=== PATIENT | female | born 1950 | race Caucasian/White ===

== ENCOUNTER → 2016-03-24 | Outpatient (CLI) | payer MEDICARE ==
[~2016-03-24] MED LIST: /DULO30CA; /DULO30CA OR; ALLE10TA11 PO; ATOR40TA PO; BACTROBAN TD; BETAMETHASONE CREAM TOP; BIOTCAP PO; BUSP5TA PO; CAL OR; CALC500T49 OR; CALC500T49 PO; DULO20CA; EMLA2.5C TOP; FISH500C; FISHCAP OR; FLEXERIL OR; FOLI1TAB86 PO; GLUC500T3 OR; GLUCOSAMINE; HUMI40KI SC; HYDR25TA6 PO; K-TA10TA PO; KETORALAC OS; LEFL20TA PO; LIDO5DIS TOP; METF500T PO; METH2.5T PO; MISOPROSTOL; MULTIVIT PO; MVI OR; OXYB5TA PO; OXYB5TAB5 OR; PRAV80TA OR; PREDNISOLINE OD; PREDNISOLINE OS; PRIL20CA OR; PROBCAP4 PO; RELPAX OR; TOPI100T OR; TORS10TA22 PO; TRAM50TA2; TRAM50TA2 OR; TYLE325T5 PO; TYLENOL ARTHRITIS OR; ULTR200T OR; VENL75CA PO; VIT D OR; VITAMIN D50000 UNT PO; VOLT75TA; Vitamin D TD; ZETI10TA OR; [UNRECOGNIZED DRUG - CODE] EXT; [UNRECOGNIZED DRUG - CODE] TD; [UNRECOGNIZED DRUG - OTHER]; [UNRECOGNIZED DRUG - OTHER] EXT; [UNRECOGNIZED DRUG - OTHER] OD; [UNRECOGNIZED DRUG - OTHER] OR; [UNRECOGNIZED DRUG - OTHER] TD
--- NOTE | 2016-03-25 01:21 | ECWPNPC ---
PATIENT NAME: MITESH MADRID : 1950 GENDER: FEMALE VISIT DATE: 03/24/2016 DISCHARGE DATE: 03/24/16 1043 VISIT LOCKED DATE TIME: PHYSICIAN: FRANCES LUCIA RESOURCE: FRANCES LUCIA REASON FOR APPOINTMENT 1. REAGAN REFERRAL TO HISTORY OF PRESENT ILLNESS HISTORY OF PRESENT ILLNESS: HX OF CHRONIC GENERALIZED PAIN AND HX OF PSORIATIC ARTHRITIS.CURRENTLY ON REMICADE INFUSIONS.RATING PAIN VAS 3/10.DOING BETTER TODAY THAN AT LAST VISIT.CURRENTLY USING TRAMADOL 50MG BID AND REQUIP AT HS.COMPLAINING OF INCREASE IN RIGHT NECK AND HEAD PAIN WITH CONSTANT NUMBNESS RIGHT HAND.MRI C-SPINE DONE 01-03-16 SHOWING LARGE DISC HERNIATION AT C6-7 W MODERATE TO SEVERE CORD COMPRESSION.SAW AT [facility] PER OUR REFERRAL.WILL BE HAVING CERVICAL SURGERY IN APRIL.CONTINUES WITH CHRONIC LBP WITH RIGHT SIDED SCIATICA. PAIN THE PATIENT DESCRIBES THE PAIN... THE PATIENT DESCRIBES THE PAIN... FALL RISK SCREENING: SCREENING :NO FALLS IN THE PAST YEAR CURRENT MEDICATIONS TAKING OXYBUTYNIN CHLORIDE 5 MG TABLET 1 TABLET ORALLY TWICE A DAY TAKING ACETAMINOPHEN 500 MG TABLET 1 TABLET NEEDED ORALLY 1 TAB @0800, 2 TABS @ 1500, 1 TAB @ 2200 TAKING ATORVASTATIN CALCIUM 40 MG TABLET 1 TABLET ORALLY ONCE A DAY TAKING BUSPIRONE HCL 10 MG TABLET 1 TABLET ORALLY 2 TIMES A DAY TAKING BIOTIN 5000 5 MG CAPSULE 1 CAPSULE ORALLY ONCE A DAY TAKING CLOBETASOL PROPIONATE 0.05 % CREAM 1 APPLICATION TO AFFECTED AREA EXTERNALLY TWICE A DAY NEEDED TAKING CALCIUM 500 MG TABLET 1 TABLET WITH MEALS ORALLY TWICE A DAY TAKING EZETIMIBE 10 MG TABLET 1 TABLET ORALLY ONCE A DAY TAKING FISH OIL 1500 MG CAPSULE 1 CAPSULE ORALLY ONCE A DAY TAKING GLUCOSAMINE SULFATE 500 MG TABLET 1 TABLET WITH A MEAL ORALLY ONCE A DAY TAKING LEFLUNOMIDE 20 MG TABLET 1 TABLET ORALLY ONCE A DAY TAKING LORATADINE 10 MG TABLET 1 TABLET ORALLY ONCE A DAY TAKING METFORMIN HCL 500 MG TABLET ORALLY DAILY TAKING MULTI-VITAMIN TABLET 1 TABLET ORALLY ONCE A DAY TAKING OMEPRAZOLE 20 MG CAPSULE DELAYED RELEASE 2 CAPSULES ORALLY BID TAKING POTASSIUM CHLORIDE 10 MEQ CAPSULE EXTENDED RELEASE MCG ORALLY TAKE ON DAYS THAT TAKE TORSEMIDE TAKING PROBIOTIC CAPSULE ORALLY DAILY TAKING RELPAX 40 MG TABLET 1 TABLET NEEDED ONE TIME ORALLY ONCE A DAY PRN TAKING TORSEMIDE 10 MG TABLET 1 TABLET ORALLY ON 3 DAYS, OFF 3 DAYS PRN EDEMA TAKING TOPIRAMATE 100 MG TABLET 1 TABLET ORALLY IN AM TAKING TOPIRAMATE 150 MG TABLET 1 TABLET ORALLY AT BEDTIME TAKING VENLAFAXINE HCL 50 MG TABLET 150 MG CAP ORALLY DAILY TAKING VITAMIN D 2000 UNIT TABLET 1 TABLET ORALLY ONCE A DAY TAKING REMICADE 100 MG SOLUTION RECONSTITUTED INTRAVENOUS 400MG EVERY 8 WKS TAKING EMLA 2.5-2.5 % CREAM ONE APPLICATION EXTERNALLY PRN TAKING ESTRADIOL 1 MG TABLET 1 TABLET ORALLY DAILY TAKING TRAMADOL HCL 50 MG TABLET 1-2 ORALLY Q6HR PRN MDD4 TAKING REQUIP 0.5 MG TABLET 2 HOURS BEFORE BEDTIME ORALLY ONCE A DAY NOT-TAKING HUMIRA 40 MG/0.8ML PREFILLED SYRINGE KIT 0.8 ML SUBCUTANEOUS EVERY 2 WEEKS MEDICATION LIST REVIEWED AND RECONCILED WITH THE PATIENT PAST MEDICAL HISTORY FIBROMYALGIA CHRONIC HEADACHE BORDERLINE DIABETES DEPRESSION PSORIATIC ARTHITIS OA DROP FOOT DDD STENOSIS VAGINAL DYSPLASIA ALLERGIES CONTRAST MEDIA: RASH: ALLERGY BACITRACIN: RASH: ALLERGY IODINE: HIVES: ALLERGY NEOMYCIN SULFATE: RASH: ALLERGY POLYMYXIN B SULFATE: RASH: ALLERGY BEE VENOM: SWELLING: ALLERGY AMINOGLYCOSIDES: RASH: ALLERGY ASPIRIN: NAUSEA: ALLERGY IBUPROFEN: VOMITING: ALLERGY NAPROXEN: NAUSEA: ALLERGY DICLOFENAC: NAUSEA: ALLERGY GABAPENTIN: URINARY INCONTINENCE: SIDE EFFECTS APPLE (DIAGNOSTIC): SWELLING OF URETHRA/BLADDER MEMBRANES: ALLERGY SOCIAL HISTORY GENERAL: TOBACCO USE ARE YOU A:NONSMOKER LEARNING BARRIERS / SPECIAL NEEDS ORIENTED TO PLAN OF CARE: PATIENT, PAIN MANAGEMENT PATIENT, ORIENTED TO PLAN OF CARE: PATIENT, PAIN MANAGEMENT PATIENT. NEW PATIENT PAIN DIARY TODAY'S VISITNOTES FROM 0-10, WHAT LEVEL IS YOUR PAIN TODAY?0 PAIN CLINIC PFS, CLERGY, PUBLIC HEALTH REFERRALS PFS REFERRAL NEEDED?NO CLERGY REFERRAL NEEDED?NO PUBLIC HEALTH REFERRAL NEEDED?NO WAS THE PROVIDER NOTIFIED OF ANY PERTINENT INFO?NO PFS REFERRAL NEEDED?NO CLERGY REFERRAL NEEDED?NO PUBLIC HEALTH REFERRAL NEEDED?NO WAS THE PROVIDER NOTIFIED OF ANY PERTINENT INFO?NO REVIEW OF SYSTEMS CONSTITUTIONAL: ANY CHANGE IN YOUR MEDICAL CONDITION? NO . CHILLS NO . FEVER NO . INFECTION: DO YOU HAVE NEW INFECTIONS? NO . DO YOU HAVE HISTORY OF MRSA? NO . MUSCULOSKELETAL: ANY NEW PATTERNS OF PAIN OR NUMBNESS? NO . GASTROENTEROLOGY: ANY NEW CHANGE IN BOWEL CONTROL? NO . GENITOURINARY: ANY NEW CHANGE IN BLADDER CONTROL? YES WOULD LIKE TO DISCUSS . IS THERE A CHANCE YOU COULD BE ? NO . HEMATOLOGY/LYMPH: DO YOU TAKE ANY BLOOD THINNERS? (FOR EXAMPLE- COUMADIN, PLAVIX, AGGRENOX, PLATEL, PRADAXA, OR XARELTO) NO . WHEN WAS YOUR LAST DOSE? DATE: TIME: . NEUROLOGY: HAVE YOU FALLEN IN THE PAST 6 MONTHS? NO . ANY NEW EXTREMITY NUMBNESS OR WEAKNESS? NO . CARDIOLOGY: DO YOU HAVE A PACEMAKER OR DEFIBRILLATOR? NO . RESPIRATORY: HAVE YOU BEEN SICK IN THE PAST WEEK? NO . FEVER NO . FLU LIKE SYMPTOMS? NO . COUGH NO . INTEGUMENTARY: DO YOU HAVE ANY RASHES OR OPEN SORES? NO . ALLERGIC/IMMUNO: ARE YOU ALLERGIC TO SHELLFISH OR IV DYE? NO . ANY NEW ALLERGIES? NO . PSYCHIATRIC: DO YOU HAVE THOUGHTS OF HURTING YOURSELF OR SOMEONE ELSE? NO . ARE YOU ABUSED, NEGLECTED, OR IN AN UNSAFE ENVIRONMENT? NO . ENDOCRINOLOGY: ARE YOU DIABETIC? YES . OTHER: DO YOU NEED ANY PRESCRIPTIONS? YES . IF YES, PLEASE LIST: ____ . ANY NEW PROBLEMS WITH YOUR MEDICATIONS? NO . WHEN DID YOU LAST EAT? ____ . WHEN DID YOU LAST DRINK? ____ . WHAT DID YOU LAST DRINK? ____ . NAME OF PERSON DRIVING YOU HOME? ____ . DO YOU HAVE ANY OTHER QUESTIONS OR CONCERNS NO . REVIEWED BY: PROVIDER: FRANCES DOMINGUEZ . VITAL SIGNS WT 176 LBS, HT 61.5 IN, BMI 32.71 INDEX, BP 135/69 MM HG, HR 84 /MIN, RR 18 /MIN, TEMP 97.3 F, OXYGEN SAT % 96%, NA INITIALS SC 09:58. EXAMINATION GENERAL EXAMINATION: LUNGS:LUNG SOUNDS ARE CLEAR. HEART:HEART RATE REGULAR. MUSCULOSKELETAL:*, PALPATION: POSITIVE FOR PAIN OVER CERVICAL AND THORACIC SPINE. POSITIVE FOR PAIN OVER CERVICAL AND THORACIC PARSPINALS.ROJM-CERVICAL WITH REPORTS OF INCREASE PAIN WITH ANY MOVEMENT OF C-SPINE. UNABLE TO EXTEND NECK DUE TO SEVERE PAIN AND STIFFNESS.DISC-HDSA-FJXS WITH INCREASE IN PAIN WITH RASING ARMS ABOVE SHOULDER HEIGHT.. DIAGNOSTIC:MRI CERVICAL SPINE W AND WITHOUT CONTRAST-LARGE DISC HERNIATION AT C6-7 W SPINAL CORD COMPRESSION-MOD TO SEVERE.. ASSESSMENTS CERVICAL DISC HERNIATION - M50.20 (PRIMARY) CERVICAL STENOSIS OF SPINE - M48.02 CERVICAL RADICULOPATHY - M54.12 TREATMENT CERVICAL DISC HERNIATION REFILL TRAMADOL HCL TABLET, 50 MG, 1-2, ORALLY, Q6HR PRN MDD4, 30 DAY(S), 120, REFILLS 3 REFILL REQUIP TABLET, 0.5 MG, 2 HOURS BEFORE BEDTIME, ORALLY, ONCE A DAY, 90 DAYS, 90, REFILLS 1 PROCEDURE CODES FA211 ESTABILISHED PATIENT [facility] CHARGE FOLLOW UP 2 MONTHS ELECTRONICALLY SIGNED BY ANGELICA DORSEY ON 03/24/2016 AT 10:48 AM EST DISCLAIMER : THIS IS A VISIT SUMMARY EXTRACTED FROM THE [employer] CHART. IT IS NOT A COPY OF THE [employer] PROGRESS NOTE. CHICAD
== END ==
LOC: M PAIN 10:00
PROVIDERS: ATTEND Nurse Practitioner Family
DX: Z09 Encounter for follow-up examination after completed treatment for conditions other than malignant neoplasm (principal); G89.29 Other chronic pain; M50.20 Other cervical disc displacement, unspecified cervical region; M48.02 Spinal stenosis, cervical region; M54.12 Radiculopathy, cervical region; Z87.39 Personal history of other diseases of the musculoskeletal system and connective tissue; E11.9 Type 2 diabetes mellitus without complications; M79.7 Fibromyalgia; R51 Headache; F32.9 Major depressive disorder, single episode, unspecified; F34.1 Dysthymic disorder; M19.90 Unspecified osteoarthritis, unspecified site; M21.379 Foot drop, unspecified foot; Z91.041 Radiographic dye allergy status; Z88.1 Allergy status to other antibiotic agents; Z88.8 Allergy status to other drugs, medicaments and biological substances; Z91.030 Bee allergy status; Z91.018 Allergy to other foods; Z79.891 Long term (current) use of opiate analgesic; Z79.1 Long term (current) use of non-steroidal anti-inflammatories (NSAID); Z79.84 Long term (current) use of oral hypoglycemic drugs; Z79.899 Other long term (current) drug therapy
CPT/HCPCS: 90834; G0463

== ENCOUNTER → 2016-06-23 | Outpatient (CLI) | payer MEDICARE ==
--- NOTE | 2016-07-05 01:12 | ECWPNPC ---
PATIENT NAME: MITESH MADRID : 1950 GENDER: FEMALE VISIT DATE: 06/23/2016 DISCHARGE DATE: 06/23/16 1048 VISIT LOCKED DATE TIME: PHYSICIAN: FRANCES LUCIA RESOURCE: FRANCES LUCIA REASON FOR APPOINTMENT 1. SPINE HISTORY OF PRESENT ILLNESS HISTORY OF PRESENT ILLNESS: HERE FOR F/U OF GENERALIZED BACK PAIN.HAD CERVICAL SURGERY [address] STREETER.HAS SIGNIFICANT IMPROVEMENT IN NECK AND RIGHT ARM PARATHESIA.RATING PAIN VAS 5/1O BASE OF SKULL AND/1/10 VAS GENERALIZED BACK PAIN.CURRENTLY USING TRAMADOL 50MG BID AND REQUIP 0.5MG AT HS.FINDS MEDICATION HELPFUL AT REDUCING PAIN AND KEEPING HER COMFORTABLE.DENIES SIDE EFFECTS.RECIEVING Q8WK INFUSIONS OF REMICADE FOR PSORIATIC ARTHRITIS. PAIN THE PATIENT DESCRIBES THE PAIN... FALL RISK SCREENING: SCREENING :NO FALLS IN THE PAST YEAR CURRENT MEDICATIONS TAKING ACETAMINOPHEN 500 MG TABLET 1 TABLET NEEDED ORALLY 1 TAB @0800, 2 TABS @ 1500, 1 TAB @ 2200 TAKING ATORVASTATIN CALCIUM 40 MG TABLET 1 TABLET ORALLY ONCE A DAY TAKING BUSPIRONE HCL 10 MG TABLET 1 TABLET ORALLY 2 TIMES A DAY TAKING BIOTIN 5000 5 MG CAPSULE 1 CAPSULE ORALLY ONCE A DAY TAKING CLOBETASOL PROPIONATE 0.05 % CREAM 1 APPLICATION TO AFFECTED AREA EXTERNALLY TWICE A DAY NEEDED TAKING CALCIUM 500 MG TABLET 1 TABLET WITH MEALS ORALLY TWICE A DAY TAKING EZETIMIBE 10 MG TABLET 1 TABLET ORALLY ONCE A DAY TAKING FISH OIL 1500 MG CAPSULE 1 CAPSULE ORALLY ONCE A DAY TAKING GLUCOSAMINE SULFATE 500 MG TABLET 1 TABLET WITH A MEAL ORALLY ONCE A DAY TAKING LEFLUNOMIDE 20 MG TABLET 1 TABLET ORALLY ONCE A DAY TAKING LORATADINE 10 MG TABLET 1 TABLET ORALLY ONCE A DAY TAKING METFORMIN HCL 500 MG TABLET ORALLY DAILY TAKING MULTI-VITAMIN TABLET 1 TABLET ORALLY ONCE A DAY TAKING OMEPRAZOLE 20 MG CAPSULE DELAYED RELEASE 2 CAPSULES ORALLY BID TAKING POTASSIUM CHLORIDE 10 MEQ CAPSULE EXTENDED RELEASE MCG ORALLY TAKE ON DAYS THAT TAKE TORSEMIDE TAKING PROBIOTIC CAPSULE ORALLY DAILY TAKING RELPAX 40 MG TABLET 1 TABLET NEEDED ONE TIME ORALLY ONCE A DAY PRN TAKING TORSEMIDE 10 MG TABLET 1 TABLET ORALLY ON 3 DAYS, OFF 3 DAYS PRN EDEMA TAKING TOPIRAMATE 100 MG TABLET 1 TABLET ORALLY IN AM TAKING TOPIRAMATE 150 MG TABLET 1 TABLET ORALLY AT BEDTIME PRN TAKING VENLAFAXINE HCL 50 MG TABLET 150 MG CAP ORALLY DAILY TAKING VITAMIN D 2000 UNIT TABLET 1 TABLET ORALLY ONCE A DAY TAKING REMICADE 100 MG SOLUTION RECONSTITUTED INTRAVENOUS 400MG EVERY 8 WKS TAKING EMLA 2.5-2.5 % CREAM ONE APPLICATION EXTERNALLY PRN TAKING TRAMADOL HCL 50 MG TABLET 1-2 ORALLY Q6HR PRN MDD4 TAKING REQUIP 0.5 MG TABLET 2 HOURS BEFORE BEDTIME ORALLY ONCE A DAY TAKING OXYBUTYNIN CHLORIDE 5 MG TABLET 1 TABLET ORALLY TWICE A DAY TAKING ESTRADIOL 1 MG TABLET 1 TABLET ORALLY DAILY NOT-TAKING HUMIRA 40 MG/0.8ML PREFILLED SYRINGE KIT 0.8 ML SUBCUTANEOUS EVERY 2 WEEKS MEDICATION LIST REVIEWED AND RECONCILED WITH THE PATIENT PAST MEDICAL HISTORY FIBROMYALGIA CHRONIC HEADACHE BORDERLINE DIABETES DEPRESSION PSORIATIC ARTHITIS OA DROP FOOT DDD STENOSIS VAGINAL DYSPLASIA ALLERGIES CONTRAST MEDIA: RASH: ALLERGY BACITRACIN: RASH: ALLERGY IODINE: HIVES: ALLERGY NEOMYCIN SULFATE: RASH: ALLERGY POLYMYXIN B SULFATE: RASH: ALLERGY BEE VENOM: SWELLING: ALLERGY AMINOGLYCOSIDES: RASH: ALLERGY ASPIRIN: NAUSEA: ALLERGY IBUPROFEN: VOMITING: ALLERGY NAPROXEN: NAUSEA: ALLERGY DICLOFENAC: NAUSEA: ALLERGY GABAPENTIN: URINARY INCONTINENCE: SIDE EFFECTS APPLE (DIAGNOSTIC): SWELLING OF URETHRA/BLADDER MEMBRANES: ALLERGY SOCIAL HISTORY GENERAL: PAIN CLINIC PFS, CLERGY, PUBLIC HEALTH REFERRALS CLERGY REFERRAL NEEDED?NO WAS THE PROVIDER NOTIFIED OF ANY PERTINENT INFO?NO PFS REFERRAL NEEDED?NO PUBLIC HEALTH REFERRAL NEEDED?NO PATIENT: ____. REVIEW OF SYSTEMS CONSTITUTIONAL: ANY CHANGE IN YOUR MEDICAL CONDITION? NO . CHILLS NO . FEVER NO . INFECTION: DO YOU HAVE NEW INFECTIONS? NO . DO YOU HAVE HISTORY OF MRSA? NO . MUSCULOSKELETAL: ANY NEW PATTERNS OF PAIN OR NUMBNESS? NO . GASTROENTEROLOGY: ANY NEW CHANGE IN BOWEL CONTROL? NO . GENITOURINARY: ANY NEW CHANGE IN BLADDER CONTROL? NO . IS THERE A CHANCE YOU COULD BE ? NO . HEMATOLOGY/LYMPH: DO YOU TAKE ANY BLOOD THINNERS? (FOR EXAMPLE- COUMADIN, PLAVIX, AGGRENOX, PLATEL, PRADAXA, OR XARELTO) NO . WHEN WAS YOUR LAST DOSE? DATE: TIME: . NEUROLOGY: HAVE YOU FALLEN IN THE PAST 6 MONTHS? NO . ANY NEW EXTREMITY NUMBNESS OR WEAKNESS? NO . CARDIOLOGY: DO YOU HAVE A PACEMAKER OR DEFIBRILLATOR? NO . RESPIRATORY: HAVE YOU BEEN SICK IN THE PAST WEEK? NO . FEVER NO . FLU LIKE SYMPTOMS? NO . COUGH NO . INTEGUMENTARY: DO YOU HAVE ANY RASHES OR OPEN SORES? NO . ALLERGIC/IMMUNO: ARE YOU ALLERGIC TO SHELLFISH OR IV DYE? NO . ANY NEW ALLERGIES? NO . PSYCHIATRIC: DO YOU HAVE THOUGHTS OF HURTING YOURSELF OR SOMEONE ELSE? NO . ARE YOU ABUSED, NEGLECTED, OR IN AN UNSAFE ENVIRONMENT? NO . ENDOCRINOLOGY: ARE YOU DIABETIC? NO . OTHER: DO YOU NEED ANY PRESCRIPTIONS? NO . IF YES, PLEASE LIST: ____ . ANY NEW PROBLEMS WITH YOUR MEDICATIONS? NO . WHEN DID YOU LAST EAT? ____ . WHEN DID YOU LAST DRINK? ____ . WHAT DID YOU LAST DRINK? ____ . NAME OF PERSON DRIVING YOU HOME? ____ . DO YOU HAVE ANY OTHER QUESTIONS OR CONCERNS NO . REVIEWED BY: PROVIDER: FRANCES DOMINGUEZ . VITAL SIGNS WT 176.8 LBS, HT 61.5 IN, BMI 32.86 INDEX, BP 127/75 MM HG, HR 87 /MIN, RR 18 /MIN, TEMP 96.0 F, OXYGEN SAT % 96%, NA INITIALS AW 1000, REVIEWED BY: KG. EXAMINATION GENERAL EXAMINATION: LUNGS:LUNG SOUNDS ARE CLEAR. HEART:HEART RATE REGULAR. MUSCULOSKELETAL:*, PALPATION: POSITIVE FOR PAIN OVER CERVICAL AND THORACIC SPINE. POSITIVE FOR PAIN OVER CERVICAL AND THORACIC PARSPINALS.ROJM-CERVICAL WITH REPORTS OF INCREASE PAIN WITH ANY MOVEMENT OF C-SPINE. UNABLE TO EXTEND NECK DUE TO SEVERE PAIN AND STIFFNESS.[id number] WITH INCREASE IN PAIN WITH RASING ARMS ABOVE SHOULDER HEIGHT.. DIAGNOSTIC:MRI CERVICAL SPINE W AND WITHOUT CONTRAST-LARGE DISC HERNIATION AT C6-7 W SPINAL CORD COMPRESSION-MOD TO SEVERE.. ASSESSMENTS CHRONIC BILATERAL LOW BACK PAIN WITH RIGHT-SIDED SCIATICA - M54.41 (PRIMARY) CERVICAL STENOSIS OF SPINE - M48.02 PSORIATIC ARTHRITIS - L40.50 TREATMENT CHRONIC BILATERAL LOW BACK PAIN WITH RIGHT-SIDED SCIATICA REFILL TRAMADOL HCL TABLET, 50 MG, 1-2, ORALLY, Q6HR PRN MDD2 3MOS SUPPLY CAT. D CHRONIC PAIN, 90 DAY(S), 180, REFILLS 0 REFILL REQUIP TABLET, 0.5 MG, 2 HOURS BEFORE BEDTIME, ORALLY, ONCE A DAY, 90 DAYS, 90, REFILLS 1 PROCEDURE CODES FA211 ESTABILISHED PATIENT [facility] FACILITY CHARGE G5643 PAIN ASSESS POS TOOL F/U PLAN DOC G8427 DOC MEDS VERIFIED W/PT OR RE DISPOSITION & COMMUNICATION FOLLOW UP 2 MONTHS ELECTRONICALLY SIGNED BY ANGELICA DORSEY ON 07/04/2016 AT 01:11 PM EDT DISCLAIMER : THIS IS A VISIT SUMMARY EXTRACTED FROM THE [employer] CHART. IT IS NOT A COPY OF THE [employer] PROGRESS NOTE. JIAN
== END | disposition home or self-care (01) ==
LOC: M PAIN 10:00
PROVIDERS: ATTEND Nurse Practitioner Family
DX: G89.29 Other chronic pain (principal); M54.41 Lumbago with sciatica, right side; M48.02 Spinal stenosis, cervical region; L40.50 Arthropathic psoriasis, unspecified; E11.9 Type 2 diabetes mellitus without complications; M79.7 Fibromyalgia; R51 Headache; F33.9 Major depressive disorder, recurrent, unspecified; N89.3 Dysplasia of vagina, unspecified; Z79.899 Other long term (current) drug therapy; Z79.84 Long term (current) use of oral hypoglycemic drugs; Z88.5 Allergy status to narcotic agent; Z88.8 Allergy status to other drugs, medicaments and biological substances; Z91.041 Radiographic dye allergy status; Z91.048 Other nonmedicinal substance allergy status; Z91.018 Allergy to other foods; Z91.030 Bee allergy status

== ENCOUNTER → 2016-08-22 | Outpatient (CLI) | payer MEDICARE ==
--- NOTE | 2016-09-04 01:22 | ECWPNPC ---
PATIENT NAME: MITESH MADRID : 1950 GENDER: FEMALE VISIT DATE: 08/22/2016 DISCHARGE DATE: 08/22/16 1157 VISIT LOCKED DATE TIME: PHYSICIAN: FRANCES LUCIA RESOURCE: FRANCES LUCIA REASON FOR APPOINTMENT 1. SPINE HISTORY OF PRESENT ILLNESS HISTORY OF PRESENT ILLNESS: HERE FOR F/U OF GENERALIZED BACK PAIN.HAD CERVICAL SURGERY [address] STREETER.HAS SIGNIFICANT IMPROVEMENT IN NECK AND RIGHT ARM PARATHESIA.RATING PAIN VAS 2/1O BASE OF SKULL AND 2/10 VAS GENERALIZED BACK PAIN.CURRENTLY USING TRAMADOL 50MG BID AND REQUIP 0.5MG AT HS.FINDS MEDICATION HELPFUL AT REDUCING PAIN AND KEEPING HER COMFORTABLE.DENIES SIDE EFFECTS.RECIEVING Q8WK INFUSIONS OF REMICADE FOR PSORIATIC ARTHRITIS. PAIN THE PATIENT DESCRIBES THE PAIN... THE PATIENT DESCRIBES THE PAIN... FALL RISK SCREENING: SCREENING :NO FALLS IN THE PAST YEAR CURRENT MEDICATIONS TAKING ACETAMINOPHEN 500 MG TABLET 1 TABLET NEEDED ORALLY 1 TAB @0800, 2 TABS @ 1500, 1 TAB @ 2200 TAKING ATORVASTATIN CALCIUM 40 MG TABLET 1 TABLET ORALLY ONCE A DAY TAKING BUSPIRONE HCL 10 MG TABLET 1 TABLET ORALLY 2 TIMES A DAY TAKING BIOTIN 5000 5 MG CAPSULE 1 CAPSULE ORALLY ONCE A DAY TAKING CLOBETASOL PROPIONATE 0.05 % CREAM 1 APPLICATION TO AFFECTED AREA EXTERNALLY TWICE A DAY NEEDED TAKING CALCIUM 500 MG TABLET 1 TABLET WITH MEALS ORALLY TWICE A DAY TAKING EZETIMIBE 10 MG TABLET 1 TABLET ORALLY ONCE A DAY TAKING FISH OIL 1500 MG CAPSULE 1 CAPSULE ORALLY ONCE A DAY TAKING GLUCOSAMINE SULFATE 500 MG TABLET 1 TABLET WITH A MEAL ORALLY ONCE A DAY TAKING LEFLUNOMIDE 20 MG TABLET 1 TABLET ORALLY ONCE A DAY TAKING LORATADINE 10 MG TABLET 1 TABLET ORALLY ONCE A DAY TAKING METFORMIN HCL 500 MG TABLET ORALLY DAILY TAKING MULTI-VITAMIN TABLET 1 TABLET ORALLY ONCE A DAY TAKING OMEPRAZOLE 20 MG CAPSULE DELAYED RELEASE 2 CAPSULES ORALLY BID TAKING POTASSIUM CHLORIDE 10 MEQ CAPSULE EXTENDED RELEASE MCG ORALLY TAKE ON DAYS THAT TAKE TORSEMIDE TAKING PROBIOTIC CAPSULE ORALLY DAILY TAKING RELPAX 40 MG TABLET 1 TABLET NEEDED ONE TIME ORALLY ONCE A DAY PRN TAKING TORSEMIDE 10 MG TABLET 1 TABLET ORALLY ON 3 DAYS, OFF 3 DAYS PRN EDEMA TAKING TOPIRAMATE 100 MG TABLET 1 TABLET ORALLY IN AM TAKING TOPIRAMATE 150 MG TABLET 1 TABLET ORALLY AT BEDTIME PRN TAKING VENLAFAXINE HCL 50 MG TABLET 150 MG CAP ORALLY DAILY TAKING VITAMIN D 2000 UNIT TABLET 1 TABLET ORALLY ONCE A DAY TAKING REMICADE 100 MG SOLUTION RECONSTITUTED INTRAVENOUS 400MG EVERY 8 WKS TAKING EMLA 2.5-2.5 % CREAM ONE APPLICATION EXTERNALLY PRN TAKING OXYBUTYNIN CHLORIDE 5 MG TABLET 1 TABLET ORALLY TWICE A DAY TAKING ESTRADIOL 1 MG TABLET 1 TABLET ORALLY DAILY TAKING TRAMADOL HCL 50 MG TABLET 1-2 ORALLY Q6HR PRN MDD2 3MOS SUPPLY CAT. D CHRONIC PAIN TAKING REQUIP 0.5 MG TABLET 2 HOURS BEFORE BEDTIME ORALLY ONCE A DAY NOT-TAKING HUMIRA 40 MG/0.8ML PREFILLED SYRINGE KIT 0.8 ML SUBCUTANEOUS EVERY 2 WEEKS MEDICATION LIST REVIEWED AND RECONCILED WITH THE PATIENT PAST MEDICAL HISTORY FIBROMYALGIA CHRONIC HEADACHE BORDERLINE DIABETES DEPRESSION PSORIATIC ARTHITIS OA DROP FOOT DDD STENOSIS VAGINAL DYSPLASIA ALLERGIES CONTRAST MEDIA: RASH: ALLERGY BACITRACIN: RASH: ALLERGY IODINE: HIVES: ALLERGY NEOMYCIN SULFATE: RASH: ALLERGY POLYMYXIN B SULFATE: RASH: ALLERGY BEE VENOM: SWELLING: ALLERGY AMINOGLYCOSIDES: RASH: ALLERGY ASPIRIN: NAUSEA: ALLERGY IBUPROFEN: VOMITING: ALLERGY NAPROXEN: NAUSEA: ALLERGY DICLOFENAC: NAUSEA: ALLERGY GABAPENTIN: URINARY INCONTINENCE: SIDE EFFECTS APPLE (DIAGNOSTIC): SWELLING OF URETHRA/BLADDER MEMBRANES: ALLERGY SOCIAL HISTORY GENERAL: PAIN CLINIC PFS, CLERGY, PUBLIC HEALTH REFERRALS PFS REFERRAL NEEDED?NO CLERGY REFERRAL NEEDED?NO PUBLIC HEALTH REFERRAL NEEDED?NO WAS THE PROVIDER NOTIFIED OF ANY PERTINENT INFO?NO HAS THE PATIENT BEEN EDUCATED REGARDING HIS/HER PLAN OF CARE?YES HAS THE PATIENT BEEN EDUCATED REGARDING PAIN, THE RISK FOR PAIN, THE IMPORTANCE OF EFFECTIVE PAIN MANAGEMENT, AND THE PAIN ASSESSMENT PROCESS?YES PATIENT: ____. REVIEW OF SYSTEMS REVIEWED BY: PROVIDER: FRANCES DOMINGUEZ . CONSTITUTIONAL: ANY CHANGE IN YOUR MEDICAL CONDITION? NO . CHILLS NO . FEVER NO . INFECTION: DO YOU HAVE NEW INFECTIONS? NO . DO YOU HAVE HISTORY OF MRSA? NO . MUSCULOSKELETAL: ANY NEW PATTERNS OF PAIN OR NUMBNESS? NO . GASTROENTEROLOGY: ANY NEW CHANGE IN BOWEL CONTROL? NO . GENITOURINARY: ANY NEW CHANGE IN BLADDER CONTROL? NO . IS THERE A CHANCE YOU COULD BE ? NO . HEMATOLOGY/LYMPH: DO YOU TAKE ANY BLOOD THINNERS? (FOR EXAMPLE- COUMADIN, PLAVIX, AGGRENOX, PLATEL, PRADAXA, OR XARELTO) NO . WHEN WAS YOUR LAST DOSE? DATE: TIME: . NEUROLOGY: HAVE YOU FALLEN IN THE PAST 6 MONTHS? NO . ANY NEW EXTREMITY NUMBNESS OR WEAKNESS? NO . CARDIOLOGY: DO YOU HAVE A PACEMAKER OR DEFIBRILLATOR? NO . RESPIRATORY: HAVE YOU BEEN SICK IN THE PAST WEEK? NO . FEVER NO . FLU LIKE SYMPTOMS? NO . COUGH NO . INTEGUMENTARY: DO YOU HAVE ANY RASHES OR OPEN SORES? NO . ALLERGIC/IMMUNO: ARE YOU ALLERGIC TO SHELLFISH OR IV DYE? YES . ANY NEW ALLERGIES? NO . PSYCHIATRIC: DO YOU HAVE THOUGHTS OF HURTING YOURSELF OR SOMEONE ELSE? NO . ARE YOU ABUSED, NEGLECTED, OR IN AN UNSAFE ENVIRONMENT? NO . ENDOCRINOLOGY: ARE YOU DIABETIC? YES . OTHER: DO YOU NEED ANY PRESCRIPTIONS? NO . IF YES, PLEASE LIST: ____ . ANY NEW PROBLEMS WITH YOUR MEDICATIONS? NO . WHEN DID YOU LAST EAT? ____ . WHEN DID YOU LAST DRINK? ____ . WHAT DID YOU LAST DRINK? ____ . NAME OF PERSON DRIVING YOU HOME? ____ . DO YOU HAVE ANY OTHER QUESTIONS OR CONCERNS NO . VITAL SIGNS WT 179.4 LBS, HT 61.5 IN, BMI 33.34 INDEX, BP 135/69 MM HG, HR 79 /MIN, RR 16 /MIN, TEMP 97.9 F, OXYGEN SAT % 95%, NA INITIALS TL 1136, REVIEWED BY: CS. EXAMINATION GENERAL EXAMINATION: LUNGS:LUNG SOUNDS ARE CLEAR. HEART:HEART RATE REGULAR. MUSCULOSKELETAL:*, PALPATION: POSITIVE FOR PAIN OVER CERVICAL AND THORACIC SPINE. POSITIVE FOR PAIN OVER CERVICAL AND THORACIC PARSPINALS.ROJM-CERVICAL WITH REPORTS OF INCREASE PAIN WITH ANY MOVEMENT OF C-SPINE. UNABLE TO EXTEND NECK DUE TO SEVERE PAIN AND STIFFNESS.[id number] WITH INCREASE IN PAIN WITH RASING ARMS ABOVE SHOULDER HEIGHT.. DIAGNOSTIC:MRI CERVICAL SPINE W AND WITHOUT CONTRAST-LARGE DISC HERNIATION AT C6-7 W SPINAL CORD COMPRESSION-MOD TO SEVERE.. ASSESSMENTS CHRONIC BILATERAL LOW BACK PAIN WITH RIGHT-SIDED SCIATICA - M54.41 (PRIMARY) CERVICAL STENOSIS OF SPINE - M48.02 PSORIATIC ARTHRITIS - L40.50 TREATMENT CHRONIC BILATERAL LOW BACK PAIN WITH RIGHT-SIDED SCIATICA CONTINUE TRAMADOL HCL TABLET, 50 MG, 1-2, ORALLY, Q6HR PRN MDD2 3MOS SUPPLY CAT. D CHRONIC PAIN CONTINUE REQUIP TABLET, 0.5 MG, 2 HOURS BEFORE BEDTIME, ORALLY, ONCE A DAY NOTES: #128 - SCREENING BMI AND F/U PLAN IN : BMI ABOVE NORMAL TODAY. DISCUSSED WITH PATIENT NUTRITIONAL FOOD CHOICES TO ASSIST WITH WEIGHT LOSS. RECCOMMENDED REDUCING SALT, SUGAR, SODA INTAKE. RECOMMEND INCREASE ACTIVITY TO INCLUDE WALKING ON A REGULAR BASIS. PROFESSIONAL NUTRITIONAL NUTRITIONAL GUIDANCE WAS OFFERED AND WAS DECLINED. , PATIENT WAS ADVISED TO START A WALKING PROGRAM TO STRENGTHEN LUMBAR PARASPINAL MUSCLES AND IMPROVE MOBILITY. THEY WERE ADVISED THAT THIS WILL IMPROVE WEIGHT LOSS AND ALSO DEPRESSION/FIBROMYALGIA SYMPTOMS. ADVISED TO WALK 10 MINUTES EVERY OTHER DAY ON A FLAT SURFACE. EMPHASIZED THE IMPORTANCE OF DOING THIS CONSISTANTLY AND NOT SPORATICALLY TO AVOID INJURY. STRONG ADVISED NOT TO DO MORE THAN 10 MINUTES EVERY OTHER DSY FOR THE FIRST 4 WEEKS. PROCEDURE CODES FA211 ESTABILISHED PATIENT [facility] CHARGE G8783 BP SCR PRFRM RCMDD DEFIND SCR INTVL G8730 PAIN ASSESS POS TOOL F/U PLAN DOC 3016F PT SCRND [place]HL[place]Y [place] USE 1124F ACP DISCUSS-NO DSCNMKR DOCD 1036F TOBACCO NON-USER G8427 DOC MEDS VERIFIED W/PT OR RE G8417 BMI >=30 CALCUATE W/FOLLOWUP 3288F FALL RISK ASSESSMENT DOCD DISPOSITION & COMMUNICATION FOLLOW UP 3 MONTHS ELECTRONICALLY SIGNED BY ANGELICA DORSEY ON 09/03/2016 AT 05:05 PM EDT DISCLAIMER : THIS IS A VISIT SUMMARY EXTRACTED FROM THE [employer] CHART. IT IS NOT A COPY OF THE [employer] PROGRESS NOTE. MTDD
== END | disposition home or self-care (01) ==
LOC: M PAIN 11:00
PROVIDERS: ATTEND Nurse Practitioner Family
DX: G89.29 Other chronic pain (principal); M54.41 Lumbago with sciatica, right side; M48.02 Spinal stenosis, cervical region; L40.50 Arthropathic psoriasis, unspecified; M79.7 Fibromyalgia; E11.9 Type 2 diabetes mellitus without complications; F33.9 Major depressive disorder, recurrent, unspecified; M19.90 Unspecified osteoarthritis, unspecified site; Z79.899 Other long term (current) drug therapy; Z79.84 Long term (current) use of oral hypoglycemic drugs; Z91.030 Bee allergy status; Z91.041 Radiographic dye allergy status; Z91.018 Allergy to other foods; Z91.048 Other nonmedicinal substance allergy status; Z88.1 Allergy status to other antibiotic agents; Z88.2 Allergy status to sulfonamides; Z88.8 Allergy status to other drugs, medicaments and biological substances

== ENCOUNTER → 2016-11-24 | Outpatient (CLI) | payer MEDICARE ==
[~2016-11-24] MED LIST changes: -ATOR40TA PO; +ATOR40TA75 PO; -OXYB5TA PO; +OXYB5TAB10 PO
--- NOTE | 2016-12-08 00:56 | ECWPNPC ---
PATIENT NAME: MITESH MADRID : 1950 GENDER: FEMALE VISIT DATE: 11/24/2016 DISCHARGE DATE: 11/24/16 1219 VISIT LOCKED DATE TIME: PHYSICIAN: FRANCES LUCIA RESOURCE: FRANCES LUCIA REASON FOR APPOINTMENT 1. SPINE HISTORY OF PRESENT ILLNESS HISTORY OF PRESENT ILLNESS: HERE FOR F/U OF GENERALIZED BACK PAIN.HAD CERVICAL SURGERY [address] STREETER.DOING VERY WELL WITH NECK PAIN.CURRENTLY USING TRAMADOL 50MG BID AND REQUIP 0.5MG AT HS.USING LIDOCAINE CREAM TO THORACIC AREA PRN WHICH IS HELPFUL.FINDS MEDICATION HELPFUL AT REDUCING PAIN AND KEEPING HER COMFORTABLE.DENIES SIDE EFFECTS.RECIEVING Q8WK INFUSIONS OF REMICADE FOR PSORIATIC ARTHRITIS.PAIN IN THORACIC AREA IS WORSE AREA.DESCRIBES PAIN CONSTANT ACHING. PAIN THE PATIENT DESCRIBES THE PAIN... THE PATIENT DESCRIBES THE PAIN... THE PATIENT DESCRIBES THE PAIN... FALL RISK SCREENING: SCREENING :NO FALLS IN THE PAST YEAR CURRENT MEDICATIONS TAKING ACETAMINOPHEN 500 MG TABLET 1 TABLET NEEDED ORALLY 1 TAB @0800, 2 TABS @ 1500, 1 TAB @ 2200 TAKING ATORVASTATIN CALCIUM 40 MG TABLET 1 TABLET ORALLY ONCE A DAY TAKING BUSPIRONE HCL 10 MG TABLET 1 TABLET ORALLY 2 TIMES A DAY TAKING BIOTIN 5000 5 MG CAPSULE 1 CAPSULE ORALLY ONCE A DAY TAKING CLOBETASOL PROPIONATE 0.05 % CREAM 1 APPLICATION TO AFFECTED AREA EXTERNALLY TWICE A DAY NEEDED TAKING CALCIUM 500 MG TABLET 1 TABLET WITH MEALS ORALLY TWICE A DAY TAKING EZETIMIBE 10 MG TABLET 1 TABLET ORALLY ONCE A DAY TAKING FISH OIL 1500 MG CAPSULE 1 CAPSULE ORALLY ONCE A DAY TAKING GLUCOSAMINE SULFATE 500 MG TABLET 1 TABLET WITH A MEAL ORALLY ONCE A DAY TAKING LEFLUNOMIDE 20 MG TABLET 1 TABLET ORALLY ONCE A DAY TAKING LORATADINE 10 MG TABLET 1 TABLET ORALLY ONCE A DAY TAKING METFORMIN HCL 500 MG TABLET ORALLY DAILY TAKING MULTI-VITAMIN TABLET 1 TABLET ORALLY ONCE A DAY TAKING OMEPRAZOLE 20 MG CAPSULE DELAYED RELEASE 2 CAPSULES ORALLY BID TAKING POTASSIUM CHLORIDE 10 MEQ CAPSULE EXTENDED RELEASE MCG ORALLY TAKE ON DAYS THAT TAKE TORSEMIDE TAKING PROBIOTIC CAPSULE ORALLY DAILY TAKING RELPAX 40 MG TABLET 1 TABLET NEEDED ONE TIME ORALLY ONCE A DAY PRN TAKING TORSEMIDE 10 MG TABLET 1 TABLET ORALLY ON 3 DAYS, OFF 3 DAYS PRN EDEMA TAKING TOPIRAMATE 100 MG TABLET 1 TABLET ORALLY IN AM TAKING TOPIRAMATE 150 MG TABLET 1 TABLET ORALLY AT BEDTIME TAKING VENLAFAXINE HCL 50 MG TABLET 150 MG CAP ORALLY DAILY TAKING VITAMIN D 2000 UNIT TABLET 1 TABLET ORALLY ONCE A DAY TAKING REMICADE 100 MG SOLUTION RECONSTITUTED INTRAVENOUS 400MG EVERY 8 WKS TAKING EMLA 2.5-2.5 % CREAM ONE APPLICATION EXTERNALLY PRN TAKING OXYBUTYNIN CHLORIDE 5 MG TABLET 1 TABLET ORALLY TWICE A DAY TAKING ESTRADIOL 1 MG TABLET 1 TABLET ORALLY DAILY TAKING TRAMADOL HCL 50 MG TABLET 1-2 ORALLY Q6HR PRN MDD2 3MOS SUPPLY CAT. D CHRONIC PAIN TAKING REQUIP 0.5 MG TABLET 2 HOURS BEFORE BEDTIME ORALLY ONCE A DAY NOT-TAKING HUMIRA 40 MG/0.8ML PREFILLED SYRINGE KIT 0.8 ML SUBCUTANEOUS EVERY 2 WEEKS MEDICATION LIST REVIEWED AND RECONCILED WITH THE PATIENT PAST MEDICAL HISTORY FIBROMYALGIA CHRONIC HEADACHE BORDERLINE DIABETES DEPRESSION PSORIATIC ARTHITIS OA DROP FOOT DDD STENOSIS VAGINAL DYSPLASIA ALLERGIES CONTRAST MEDIA: RASH: ALLERGY IODINE: HIVES: ALLERGY NEOMYCIN SULFATE: RASH: ALLERGY POLYMYXIN B SULFATE: RASH: ALLERGY BEE VENOM: SWELLING: ALLERGY AMINOGLYCOSIDES: RASH: ALLERGY ASPIRIN: NAUSEA: ALLERGY IBUPROFEN: VOMITING: ALLERGY NAPROXEN: NAUSEA: ALLERGY DICLOFENAC: NAUSEA: ALLERGY GABAPENTIN: URINARY INCONTINENCE: SIDE EFFECTS APPLE (DIAGNOSTIC): SWELLING OF URETHRA/BLADDER MEMBRANES: ALLERGY NEOSPORIN: RASH: ALLERGY REVIEW OF SYSTEMS REVIEWED BY: PROVIDER: FRANCES DOMINGUEZ . CONSTITUTIONAL: ANY CHANGE IN YOUR MEDICAL CONDITION? NO . CHILLS NO . FEVER NO . INFECTION: DO YOU HAVE NEW INFECTIONS? NO . DO YOU HAVE HISTORY OF MRSA? NO . MUSCULOSKELETAL: ANY NEW PATTERNS OF PAIN OR NUMBNESS? NO . GASTROENTEROLOGY: ANY NEW CHANGE IN BOWEL CONTROL? NO . GENITOURINARY: ANY NEW CHANGE IN BLADDER CONTROL? NO . IS THERE A CHANCE YOU COULD BE ? NO . HEMATOLOGY/LYMPH: DO YOU TAKE ANY BLOOD THINNERS? (FOR EXAMPLE- COUMADIN, PLAVIX, AGGRENOX, PLATEL, PRADAXA, OR XARELTO) NO . WHEN WAS YOUR LAST DOSE? DATE: TIME: . NEUROLOGY: HAVE YOU FALLEN IN THE PAST 6 MONTHS? NO . ANY NEW EXTREMITY NUMBNESS OR WEAKNESS? NO . CARDIOLOGY: DO YOU HAVE A PACEMAKER OR DEFIBRILLATOR? NO . RESPIRATORY: HAVE YOU BEEN SICK IN THE PAST WEEK? NO . FEVER NO . FLU LIKE SYMPTOMS? NO . COUGH NO . INTEGUMENTARY: DO YOU HAVE ANY RASHES OR OPEN SORES? NO . ALLERGIC/IMMUNO: ARE YOU ALLERGIC TO SHELLFISH OR IV DYE? YES . ANY NEW ALLERGIES? NO . PSYCHIATRIC: DO YOU HAVE THOUGHTS OF HURTING YOURSELF OR SOMEONE ELSE? NO . ARE YOU ABUSED, NEGLECTED, OR IN AN UNSAFE ENVIRONMENT? NO . ENDOCRINOLOGY: ARE YOU DIABETIC? YES . OTHER: DO YOU NEED ANY PRESCRIPTIONS? NO . IF YES, PLEASE LIST: ____ . ANY NEW PROBLEMS WITH YOUR MEDICATIONS? NO . WHEN DID YOU LAST EAT? ____ . WHEN DID YOU LAST DRINK? ____ . WHAT DID YOU LAST DRINK? ____ . NAME OF PERSON DRIVING YOU HOME? ____ . DO YOU HAVE ANY OTHER QUESTIONS OR CONCERNS NO . VITAL SIGNS WT 175 LBS, HT 61.5 IN, BMI 32.53 INDEX, BP 127/64 MM HG, HR 74 /MIN, RR 16 /MIN, TEMP 97.4 F, OXYGEN SAT % 98%, SAFE IN ENV? (Y/N) YES, REVIEWED BY: PEPE. EXAMINATION GENERAL EXAMINATION: LUNGS:LUNG SOUNDS ARE CLEAR. HEART:HEART RATE REGULAR. MUSCULOSKELETAL:*, PALPATION: POSITIVE FOR PAIN OVER CERVICAL AND THORACIC SPINE. POSITIVE FOR PAIN OVER CERVICAL AND THORACIC PARSPINALS. ROJM-CERVICAL WITH REPORTS OF INCREASE PAIN WITH ANY MOVEMENT OF C-SPINE. UNABLE TO EXTEND NECK DUE TO SEVERE PAIN AND STIFFNESS. [id number] WITH INCREASE IN PAIN WITH RASING ARMS ABOVE SHOULDER HEIGHT.. DIAGNOSTIC:MRI CERVICAL SPINE W AND WITHOUT CONTRAST-LARGE DISC HERNIATION AT C6-7 W SPINAL CORD COMPRESSION-MOD TO SEVERE.. ASSESSMENTS CHRONIC BILATERAL LOW BACK PAIN WITH RIGHT-SIDED SCIATICA - M54.41 (PRIMARY) CERVICAL STENOSIS OF SPINE - M48.02 PSORIATIC ARTHRITIS - L40.50 TREATMENT CHRONIC BILATERAL LOW BACK PAIN WITH RIGHT-SIDED SCIATICA REFILL EMLA CREAM, 2.5-2.5 %, ONE APPLICATION, EXTERNALLY, PRN, 30 DAY(S), 1, REFILLS 5 CONTINUE REQUIP TABLET, 0.5 MG, 2 HOURS BEFORE BEDTIME, ORALLY, ONCE A DAY CONTINUE TRAMADOL HCL TABLET, 50 MG, 1-2, ORALLY, Q6HR PRN MDD2 3MOS SUPPLY CAT. D CHRONIC PAIN PROCEDURE CODES FA211 ESTABILISHED PATIENT [facility] FACILITY CHARGE C8793 PAIN ASSESS POS TOOL F/U PLAN DOC G8427 DOC MEDS VERIFIED W/PT OR RE DISPOSITION & COMMUNICATION FOLLOW UP 3 MONTHS ELECTRONICALLY SIGNED BY ANGELICA DORSEY ON 12/07/2016 AT 09:50 PM EDT DISCLAIMER : THIS IS A VISIT SUMMARY EXTRACTED FROM THE [employer] CHART. IT IS NOT A COPY OF THE [employer] PROGRESS NOTE. JIAN
== END ==
LOC: M PAIN 11:00
PROVIDERS: ATTEND Nurse Practitioner Family
DX: M54.41 Lumbago with sciatica, right side (principal); M48.02 Spinal stenosis, cervical region; L40.50 Arthropathic psoriasis, unspecified; Z79.891 Long term (current) use of opiate analgesic; Z79.899 Other long term (current) drug therapy; Z79.84 Long term (current) use of oral hypoglycemic drugs; Z88.0 Allergy status to penicillin; Z88.1 Allergy status to other antibiotic agents; Z88.3 Allergy status to other anti-infective agents; Z88.6 Allergy status to analgesic agent; Z88.8 Allergy status to other drugs, medicaments and biological substances; Z91.041 Radiographic dye allergy status; Z91.030 Bee allergy status; Z91.018 Allergy to other foods

== ENCOUNTER → 2017-02-02 | Outpatient (CLI) | payer MEDICARE ==
--- NOTE | 2017-02-02 14:34 | REPMRS ---
Patient History The patient states she had a clinical breast exam in 01/2017. Patient has history of colorectal cancer at age 28. Family history of colorectal cancer in father at age 50 or over, colorectal cancer in sister at age 50 or over, colorectal cancer in maternal grandmother at age 50 or over, colorectal cancer in paternal grandmother at age 50 or over, and colorectal cancer in brother at age 50 or over. Taking estrogen for 15 years. Digital Woman Screen Mammo: February 02, 2017 - Exam #: [id number] Bilateral CC and MLO view(s) were taken. Technologist: Zofia Blanchard, Technologist Prior study comparison: January 29, 2016, digital woman screen mammo performed at [facility]. January 01, 2015, digital woman screen mammo performed at [facility]. December 30, 2013, digital woman screen mammo performed at [facility]. FINDINGS: The breast tissue is heterogeneously dense. This may lower the sensitivity of mammography. There is a moderate amount of heterogeneously dense fibroglandular tissue which is fairly symmetric. There is no interval development of dominant mass, architectural distortion, or clustered microcalcification typical of malignancy. There has been no change in the appearance of the mammogram from the prior studies. ASSESSMENT: BI-RADS/ACR category 1 mammogram. Negative. Recommendation Routine screening mammogram of both breasts in 1 year (for women over age 40). This mammogram was interpreted with the aid of an FDA-approved computer-aided dectection system. Electronically Signed By: Jerzy Pacheco MD 02/02/17 0580
== END ==
LOC: M WHC 13:12
PROVIDERS: ATTEND Nurse Practitioner Family
DX: Z01.419 Encounter for gynecological examination (general) (routine) without abnormal findings (principal); Z12.31 Encounter for screening mammogram for malignant neoplasm of breast; Z12.12 Encounter for screening for malignant neoplasm of rectum; Z92.23 Personal history of estrogen therapy; Z85.038 Personal history of other malignant neoplasm of large intestine; Z80.0 Family history of malignant neoplasm of digestive organs
CPT/HCPCS: 82270; G0101; G0202

== ENCOUNTER → 2017-04-14 | Outpatient (CLI) | payer MEDICARE | LOC: M PAIN 11:15 | DX: M54.6 Pain in thoracic spine (principal); L40.50 Arthropathic psoriasis, unspecified; G89.29 Other chronic pain; M79.7 Fibromyalgia; R51 Headache; E11.9 Type 2 diabetes mellitus without complications; F32.9 Major depressive disorder, single episode, unspecified; Z79.1 Long term (current) use of non-steroidal anti-inflammatories (NSAID); Z79.891 Long term (current) use of opiate analgesic; Z79.899 Other long term (current) drug therapy; Z88.1 Allergy status to other antibiotic agents; Z88.2 Allergy status to sulfonamides; Z88.6 Allergy status to analgesic agent; Z88.8 Allergy status to other drugs, medicaments and biological substances; Z91.030 Bee allergy status; Z91.041 Radiographic dye allergy status; Z91.018 Allergy to other foods; Z87.891 Personal history of nicotine dependence | CPT/HCPCS: G0463 ==

== ENCOUNTER → 2017-05-05 | Outpatient (CLI) | payer MEDICARE ==
[~2017-05-05] MED LIST changes: -/DULO30CA; -/DULO30CA OR; -ALLE10TA11 PO; -ATOR40TA75 PO; -BACTROBAN TD; -BETAMETHASONE CREAM TOP; -BIOTCAP PO; -BUSP5TA PO; -CAL OR; -CALC500T49 OR; -CALC500T49 PO; -DULO20CA; -EMLA2.5C TOP; -FISH500C; -FISHCAP OR; -FLEXERIL OR; -FOLI1TAB86 PO; -GLUC500T3 OR; -GLUCOSAMINE; -HUMI40KI SC; -HYDR25TA6 PO; -K-TA10TA PO; -KETORALAC OS; -LEFL20TA PO; -LIDO5DIS TOP; -METF500T PO; -METH2.5T PO; +METHACHOLINE KIT (J7674) INH; -MISOPROSTOL; -MULTIVIT PO; -MVI OR; -OXYB5TAB10 PO; -OXYB5TAB5 OR; -PRAV80TA OR; -PREDNISOLINE OD; -PREDNISOLINE OS; -PRIL20CA OR; -PROBCAP4 PO; -RELPAX OR; -TOPI100T OR; -TORS10TA22 PO; -TRAM50TA2; -TRAM50TA2 OR; -TYLE325T5 PO; -TYLENOL ARTHRITIS OR; -ULTR200T OR; -VENL75CA PO; -VIT D OR; -VITAMIN D50000 UNT PO; -VOLT75TA; -Vitamin D TD; -ZETI10TA OR; -[UNRECOGNIZED DRUG - CODE] EXT; -[UNRECOGNIZED DRUG - CODE] TD; -[UNRECOGNIZED DRUG - OTHER]; -[UNRECOGNIZED DRUG - OTHER] EXT; -[UNRECOGNIZED DRUG - OTHER] OD; -[UNRECOGNIZED DRUG - OTHER] OR; -[UNRECOGNIZED DRUG - OTHER] TD
== END ==
LOC: M CARPUL 10:03
DX: R06.02 Shortness of breath (principal)
CPT/HCPCS: J7674

== ENCOUNTER → 2017-05-19 | Outpatient (CLI) | payer MEDICARE | LOC: M RAD 10:46 | DX: N28.1 Cyst of kidney, acquired (principal) | CPT/HCPCS: 76775 ==

== ENCOUNTER → 2017-06-08 | Outpatient (CLI) | payer MEDICARE ==
[~2017-06-08] MED LIST changes: +BUPIVACAINE HCL 0.25% 30 ML VIAL As Ordered; +ISOVUE-M 300 61% 15ML VIAL (Q9967) As Ordered; +LIDOCAINE 1% SDV INJ 30 ML VIAL As Ordered; -METHACHOLINE KIT (J7674) INH; +TRIAMCINOLONE ACETONIDE SUSP 40 MG/ML VIAL (J3301) As Ordered; +diazePAM 5 MG TAB As Ordered; +oxyCODONE 5MG TAB As Ordered
== END ==
LOC: M PAIN 10:00
DX: G89.29 Other chronic pain (principal); M47.814 Spondylosis without myelopathy or radiculopathy, thoracic region; E11.9 Type 2 diabetes mellitus without complications; R51 Headache; F32.9 Major depressive disorder, single episode, unspecified; L40.52 Psoriatic arthritis mutilans; G47.30 Sleep apnea, unspecified; J30.89 Other allergic rhinitis; Z79.84 Long term (current) use of oral hypoglycemic drugs; Z79.891 Long term (current) use of opiate analgesic; Z79.899 Other long term (current) drug therapy; Z88.1 Allergy status to other antibiotic agents; Z88.6 Allergy status to analgesic agent; Z88.8 Allergy status to other drugs, medicaments and biological substances; Z91.018 Allergy to other foods; Z91.041 Radiographic dye allergy status; Z91.030 Bee allergy status
CPT/HCPCS: J3301

== ENCOUNTER → 2017-07-07 | Outpatient (CLI) | payer MEDICARE | LOC: M PAIN 11:15 | DX: G89.29 Other chronic pain (principal); M54.6 Pain in thoracic spine; L40.50 Arthropathic psoriasis, unspecified; M79.7 Fibromyalgia; R73.03 Prediabetes; F34.1 Dysthymic disorder; F32.9 Major depressive disorder, single episode, unspecified; R51 Headache; M19.90 Unspecified osteoarthritis, unspecified site; M48.00 Spinal stenosis, site unspecified; Z91.041 Radiographic dye allergy status; Z91.030 Bee allergy status; Z88.6 Allergy status to analgesic agent; Z79.891 Long term (current) use of opiate analgesic; Z79.84 Long term (current) use of oral hypoglycemic drugs; Z79.899 Other long term (current) drug therapy; Z88.1 Allergy status to other antibiotic agents; Z88.8 Allergy status to other drugs, medicaments and biological substances; Z91.048 Other nonmedicinal substance allergy status; Z30.8 Encounter for other contraceptive management | CPT/HCPCS: G0463 ==

== ENCOUNTER → 2017-11-04 | Outpatient (CLI) | payer MEDICARE | LOC: M PAIN 10:45 | DX: M54.6 Pain in thoracic spine (principal); G89.29 Other chronic pain; M79.7 Fibromyalgia; L40.50 Arthropathic psoriasis, unspecified; E11.9 Type 2 diabetes mellitus without complications; F32.9 Major depressive disorder, single episode, unspecified; L40.52 Psoriatic arthritis mutilans; M21.379 Foot drop, unspecified foot; J30.89 Other allergic rhinitis; Z79.84 Long term (current) use of oral hypoglycemic drugs; Z79.899 Other long term (current) drug therapy; Z88.1 Allergy status to other antibiotic agents; Z88.6 Allergy status to analgesic agent; Z88.8 Allergy status to other drugs, medicaments and biological substances; Z91.018 Allergy to other foods; Z91.09 Other allergy status, other than to drugs and biological substances; Z91.030 Bee allergy status; Z91.041 Radiographic dye allergy status; Z87.891 Personal history of nicotine dependence | CPT/HCPCS: G0463 ==

== ENCOUNTER 2017-11-19 10:38 | Day surgery (SDC) | payer MEDICARE ==
[~2017-11-19 10:38] MED LIST changes: -BUPIVACAINE HCL 0.25% 30 ML VIAL As Ordered; -ISOVUE-M 300 61% 15ML VIAL (Q9967) As Ordered; -LIDOCAINE 1% SDV INJ 30 ML VIAL As Ordered; +LIDOCAINE 2% INJ 100 MG/5 ML SDV (FOR ANES.) As Ordered; +PROPOFOL 200 MG/20 ML VIAL As Ordered; -TRIAMCINOLONE ACETONIDE SUSP 40 MG/ML VIAL (J3301) As Ordered; -diazePAM 5 MG TAB As Ordered; -oxyCODONE 5MG TAB As Ordered
[2017-11-19] MEDS: NS 1,000 ML IV (11:10)
== END 2017-11-19 12:40 | disposition home or self-care (01) ==
LOC: M OPP 10:38
DX: Z12.11 Encounter for screening for malignant neoplasm of colon (principal); Z86.010 Personal history of colon polyps; Q43.8 Other specified congenital malformations of intestine; Z80.0 Family history of malignant neoplasm of digestive organs; E78.00 Pure hypercholesterolemia, unspecified; E11.9 Type 2 diabetes mellitus without complications; K21.9 Gastro-esophageal reflux disease without esophagitis; D64.9 Anemia, unspecified; L40.9 Psoriasis, unspecified; F41.9 Anxiety disorder, unspecified; F32.9 Major depressive disorder, single episode, unspecified; R51 Headache; M79.7 Fibromyalgia; R32 Unspecified urinary incontinence; Z79.84 Long term (current) use of oral hypoglycemic drugs; Z79.891 Long term (current) use of opiate analgesic; Z79.899 Other long term (current) drug therapy; Z88.8 Allergy status to other drugs, medicaments and biological substances; Z91.048 Other nonmedicinal substance allergy status; Z91.041 Radiographic dye allergy status; Z91.030 Bee allergy status; Z91.018 Allergy to other foods; J30.2 Other seasonal allergic rhinitis; Z90.710 Acquired absence of both cervix and uterus; Z98.1 Arthrodesis status
CPT/HCPCS: 45378

== ENCOUNTER → 2018-01-04 | Outpatient (CLI) | payer MEDICARE | LOC: M PAIN 10:15 | DX: M54.40 Lumbago with sciatica, unspecified side (principal); G89.29 Other chronic pain; M79.7 Fibromyalgia; F32.9 Major depressive disorder, single episode, unspecified; L40.52 Psoriatic arthritis mutilans; M21.379 Foot drop, unspecified foot; Z79.1 Long term (current) use of non-steroidal anti-inflammatories (NSAID); Z79.84 Long term (current) use of oral hypoglycemic drugs; Z79.891 Long term (current) use of opiate analgesic; Z79.899 Other long term (current) drug therapy; Z88.1 Allergy status to other antibiotic agents; Z88.6 Allergy status to analgesic agent; Z88.8 Allergy status to other drugs, medicaments and biological substances; Z91.018 Allergy to other foods; Z91.09 Other allergy status, other than to drugs and biological substances; Z91.030 Bee allergy status; Z91.041 Radiographic dye allergy status; Z87.891 Personal history of nicotine dependence | CPT/HCPCS: G0463 ==

== ENCOUNTER → 2018-02-03 | Outpatient (REF) | payer MEDICARE | LOC: M SFHCWAGY 11:35 | DX: Z12.72 Encounter for screening for malignant neoplasm of vagina (principal); N95.2 Postmenopausal atrophic vaginitis | CPT/HCPCS: G0123 ==

== ENCOUNTER → 2018-02-03 | Outpatient (CLI) | payer MEDICARE | LOC: M WHC 10:58 | DX: Z12.31 Encounter for screening mammogram for malignant neoplasm of breast (principal); R92.0 Mammographic microcalcification found on diagnostic imaging of breast; Z92.23 Personal history of estrogen therapy; Z85.038 Personal history of other malignant neoplasm of large intestine; Z80.0 Family history of malignant neoplasm of digestive organs; Z12.72 Encounter for screening for malignant neoplasm of vagina; N95.2 Postmenopausal atrophic vaginitis; Z12.12 Encounter for screening for malignant neoplasm of rectum | CPT/HCPCS: 77067; G0123 ==

== ENCOUNTER → 2018-02-10 | Outpatient (CLI) | payer MEDICARE | LOC: M PAIN 10:00 | DX: M54.40 Lumbago with sciatica, unspecified side (principal); M54.6 Pain in thoracic spine; M19.90 Unspecified osteoarthritis, unspecified site; M79.7 Fibromyalgia; F32.9 Major depressive disorder, single episode, unspecified; L40.52 Psoriatic arthritis mutilans; J45.909 Unspecified asthma, uncomplicated; Z79.84 Long term (current) use of oral hypoglycemic drugs; Z79.891 Long term (current) use of opiate analgesic; Z79.899 Other long term (current) drug therapy; Z88.1 Allergy status to other antibiotic agents; Z88.6 Allergy status to analgesic agent; Z88.8 Allergy status to other drugs, medicaments and biological substances; Z91.018 Allergy to other foods; Z91.030 Bee allergy status; Z91.09 Other allergy status, other than to drugs and biological substances; Z91.041 Radiographic dye allergy status; Z87.891 Personal history of nicotine dependence | CPT/HCPCS: G0463 ==

== ENCOUNTER → 2018-04-01 | Outpatient (CLI) | payer MEDICARE ==
[~2018-04-01] MED LIST changes: +/DULO30CA; +/DULO30CA OR; +ALLE10TA11 PO; +ATOR40TA75 PO; +BACTROBAN TD; +BETAMETHASONE CREAM TOP; +BIOTCAP PO; +BUSP30TA PO; +BUSP5TA PO; +CAL OR; +CALC500T49 OR; +CALC500T49 PO; +DULO20CA; +EMLA2.5C TOP; +FISH500C; +FISHCAP OR; +FLEXERIL OR; +FOLI1TAB86 PO; +GLUC1CAP10 PO; +GLUC500T3 OR; +GLUCOSAMINE; +HUMI40KI SC; +HYDR25TA6 PO; +INFL10VL IV; +IRON27TA2 PO; +IRON325T7 PO; +K-TA10TA PO; +K-TA10TA2 PO; +KETORALAC OS; +LEFL1TAB4 PO; +LEFL20TA PO; +LIDO5DIS TOP; -LIDOCAINE 2% INJ 100 MG/5 ML SDV (FOR ANES.) As Ordered; +LORA-243 PO; +METF500T PO; +METF500T13 PO; +METH2.5T PO; +MISOPROSTOL; +MULTCAP PO; +MULTIVIT PO; +MVI OR; +OXYB5TAB10 PO; +OXYB5TAB5 OR; +PANT40TA3 PO; +PRAV80TA OR; +PREDNISOLINE OD; +PREDNISOLINE OS; +PRIL20CA OR; +PROBCAP4 PO; -PROPOFOL 200 MG/20 ML VIAL As Ordered; +RANI150T PO; +RELPAX OR; +SYMB80INH INH; +TOPA100T12 PO; +TOPI100T OR; +TOPI100T9 PO; +TORS10TA22 PO; +TORS10TA3 PO; +TRAM50TA2; +TRAM50TA2 OR; +TRAM50TA2 PO; +TYLE325T5 PO; +TYLENOL ARTHRITIS OR; +ULTR200T OR; +VENL150C43 PO; +VENL75CA PO; +VENTAER IN; +VIT D OR; +VITA200016 PO; +VITAMIN D50000 UNT PO; +VOLT75TA; +Vitamin D TD; +ZETI10TA OR; +ZETI10TA30 PO; +[UNRECOGNIZED DRUG - CODE] EXT; +[UNRECOGNIZED DRUG - CODE] TD; +[UNRECOGNIZED DRUG - OTHER]; +[UNRECOGNIZED DRUG - OTHER] EXT; +[UNRECOGNIZED DRUG - OTHER] OD; +[UNRECOGNIZED DRUG - OTHER] OR; +[UNRECOGNIZED DRUG - OTHER] TD
--- NOTE | 2018-04-01 16:01 | REP ---
Low dose lung cancer screening, noncontrast chest CT: History: History of nicotine dependence. No comparison chest CT. Comparison chest x-ray June 08, 2017. 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 No significant pulmonary nodule is appreciated. No infiltrate or lung mass lesion is seen. Granulomatous calcification is visible in the liver. Impression: Lung-RADS category I negative screening chest CT. Recommend annual screening exam. Electronically Signed by Travis Pacheco MD 04/01/2018 05:26 P
== END ==
LOC: M RAD 11:51
PROVIDERS: ATTEND Nurse Practitioner Adult Health
DX: Z12.2 Encounter for screening for malignant neoplasm of respiratory organs (principal); Z87.891 Personal history of nicotine dependence

== ENCOUNTER → 2018-05-03 | Outpatient (CLI) | payer MEDICARE ==
--- NOTE | 2018-05-17 00:34 | ECWPNPC ---
PATIENT NAME: MITESH MADRID : 1950 GENDER: FEMALE VISIT DATE: 05/03/2018 DISCHARGE DATE: 05/03/18 1155 VISIT LOCKED DATE TIME: PHYSICIAN: FRANCES LUCIA RESOURCE: FRANCES LUCIA REASON FOR APPOINTMENT 1. BACK HISTORY OF PRESENT ILLNESS HISTORY OF PRESENT ILLNESS: HERE FOR F/U OF CHRONIC GENERALIZED BACK PAIN.HX OF PSORIATIC ARTHRITIS.REPORTING INCREASE IN RIGHT NECK AND HEAD PAIN.HAVING BILATERAL HAND NUMBNES MORE FREQUENTLY.RATING PAIN VAS 4/10.USING TRAMADOL WITH SOME RELIEF.DISCUSSED TREATMENT OPTIONS.ON CHRONIC DMARD THERAPY FOR INFLAMMATORY ARTHROPATHY. PAIN THE PATIENT DESCRIBES THE PAIN... THE PATIENT DESCRIBES THE PAIN... FALL RISK SCREENING: SCREENING : NO FALLS IN THE PAST YEAR. CURRENT MEDICATIONS TAKING ACETAMINOPHEN 500 MG TABLET 2000MG ORALLY 1 TAB AM, 2 AT 3PM, 1 TAB AT BEDTIME TAKING ATORVASTATIN CALCIUM 40 MG TABLET 1 TABLET ORALLY ONCE A DAY TAKING BUSPIRONE HCL 30 MG TABLET 1 TABLET ORALLY DAILY TAKING BIOTIN 5000 5 MG CAPSULE 1 CAPSULE ORALLY ONCE A DAY, NOTES: HAIR SKIN AND NAILS TAKING CALCIUM 500 MG TABLET 2 TABS ORALLY 666MG DAILY, NOTES: WITH MAGNESIUM AND ZINC TAKING EZETIMIBE 10 MG TABLET 1 TABLET ORALLY ONCE A DAY TAKING FISH OIL 1500 MG CAPSULE 1 CAPSULE ORALLY ONCE A DAY TAKING LEFLUNOMIDE 20 MG TABLET 1 TABLET ORALLY ONCE A DAY TAKING LORATADINE 10 MG TABLET 1 TABLET ORALLY ONCE A DAY TAKING METFORMIN HCL 500 MG TABLET ORALLY DAILY TAKING MULTI-VITAMIN TABLET 1 TABLET ORALLY ONCE A DAY TAKING POTASSIUM CHLORIDE 10 MEQ CAPSULE EXTENDED RELEASE MCG ORALLY TAKE ON DAYS THAT TAKE TORSEMIDE, NOTES: NEEDED TAKING RELPAX 40 MG TABLET 1 TABLET NEEDED ONE TIME ORALLY ONCE A DAY PRN, NOTES: NEEDED TAKING TORSEMIDE 10 MG TABLET 1 TABLET ORALLY ON 3 DAYS, OFF 3 DAYS PRN EDEMA, NOTES: NEEDED TAKING TOPIRAMATE 150 MG TABLET 1 TABLET ORALLY AT BEDTIME TAKING VITAMIN D 2000 UNIT TABLET 1 TABLET ORALLY ONCE A DAY TAKING REMICADE 100 MG SOLUTION RECONSTITUTED INTRAVENOUS 700MG EVERY 5 WKS TAKING EMLA 2.5-2.5 % CREAM ONE APPLICATION EXTERNALLY PRN TAKING SYMBICORT 80-4.5 MCG/ACT AEROSOL 2 PUFFS INHALATION TWICE A DAY TAKING VENTOLIN HFA 108 (90 BASE) MCG/ACT AEROSOL SOLUTION 2 PUFFS NEEDED INHALATION EVERY 6 HRS TAKING PROTONIX 40 MG TABLET DELAYED RELEASE 1 TABLET ORALLY ONCE A DAY TAKING RANITIDINE HCL 150 MG CAPSULE 1 CAPSULE AT BEDTIME ORALLY ONCE A DAY TAKING FERROUS GLUCONATE 225 (27 FE) MG TABLET 1 TABLET ORALLY EVERY OTHER DAY TAKING GLUCOSAMINE CHOND COMPLEX/MSM - TABLET 2 TABLETS ORALLY DAILY, NOTES: UNSURE OF DOSE TAKING TOPIRAMATE 100 MG TABLET 1 TABLET ORALLY IN AM TAKING OXYBUTYNIN CHLORIDE 5 MG TABLET 1.5 TABS ORALLY TWICE DAILY TAKING CYMBALTA 30 MG CAPSULE DELAYED RELEASE PARTICLES 1 CAPSULE ORALLY ONCE A DAY TAKING TRAMADOL HCL 50 MG TABLET 1 TAB ORALLY Q6H PRN PAIN MDD4 NOT-TAKING GLUCOSAMINE SULFATE 500 MG TABLET 1 TABLET WITH A MEAL ORALLY ONCE A DAY NOT-TAKING PROBIOTIC CAPSULE ORALLY DAILY NOT-TAKING REQUIP 0.5 MG TABLET 2 HOURS BEFORE BEDTIME ORALLY ONCE A DAY NOT-TAKING TOPIRAMATE 100 MG TABLET 1 TABLET ORALLY 1 IN AM AND IN EVENING NOT-TAKING VENLAFAXINE HCL 50 MG TABLET 150 MG CAP ORALLY DAILY NOT-TAKING OMEPRAZOLE 20 MG CAPSULE DELAYED RELEASE 1 CAP ORALLY BID NOT-TAKING CLOBETASOL PROPIONATE 0.05 % CREAM 1 APPLICATION TO AFFECTED AREA EXTERNALLY TWICE A DAY NEEDED MEDICATION LIST REVIEWED AND RECONCILED WITH THE PATIENT PAST MEDICAL HISTORY FIBROMYALGIA CHRONIC HEADACHE BORDERLINE DIABETES DEPRESSION PSORIATIC ARTHITIS OA DROP FOOT DDD STENOSIS 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29 LIFETIME BREAST CANCER RISK CALCULATED AT 5.9 % GENETIC MUTATION TEST NEG 2018 ASTHMA ALLERGIES CONTRAST MEDIA: RASH: ALLERGY IODINE: HIVES: ALLERGY NEOMYCIN SULFATE: RASH: ALLERGY POLYMYXIN B SULFATE: RASH: ALLERGY BEE VENOM: SWELLING: ALLERGY AMINOGLYCOSIDES: RASH: ALLERGY ASPIRIN: NAUSEA: ALLERGY IBUPROFEN: VOMITING: ALLERGY NAPROXEN: NAUSEA: ALLERGY DICLOFENAC: NAUSEA: ALLERGY GABAPENTIN: URINARY INCONTINENCE: SIDE EFFECTS APPLE (DIAGNOSTIC): SWELLING OF URETHRA/BLADDER MEMBRANES: ALLERGY NEOSPORIN: RASH: ALLERGY ENVIRONMENTAL: CONGESTION: ALLERGY ADHESIVE BANDAGES: RASH: ALLERGY SURGICAL HISTORY RECTOVAGINAL FISTULA REPAIR 1971 LAPAROSCOPY ENDOMETRIOSIS 1977 APPENDECTOMY WITH CARCINOID TYPE TUMOR 3 CM MASS REMOVED 1978 D&C LAPAROSCOPY 1981 ROSEANNA WITH OVARIAN PRESERVATION 1981 COLONOSCOPY NO POLYPS DUE 2017 2012 NECK SURGERY- DR. STREETER 05/2016 RIGHT EYE SURGERY 09/16/2017 BIOPSY LEFT EAR FAMILY HISTORY FATHER: 84 YRS, COLON CANCER IN 80'S HEART DISEASE MOTHER: 87 YRS, DM HEART DISEASE SIBLINGS: COLON CANCER BROTHER AT AGE 60'S AND MELANOMA ARM ,ANOTHER SISTER COLON CANCER AGE 61 ,DM TYPE 2 MATERNAL GRAND MOTHER: COLON CANCER COLON RESECTION PATERNAL AUNT: PANCREAS CANCER IN HER 60'S 2 BROTHER(S) , 3 SISTER(S) . GREAT PATERNAL UNCLE BLADDER CANCER. GREAT AUNT PATERNAL SIDE LUNG CANCER SISTER - CANCERBROTHER - CANCER. SOCIAL HISTORY GENERAL: TOBACCO USE ARE YOU A:FORMER SMOKER HOW LONG HAS IT BEEN SINCE YOU LAST SMOKED?1-5 YEARS BMI CARE GOAL FOLLOW-UP ABOVE NORMAL BMI FOLLOW-UPGIVING ENCOURAGEMENT TO EXERCISE ALCOHOL SCREENING DID YOU HAVE A DRINK CONTAINING ALCOHOL IN THE PAST YEAR?NO POINTS0 INTERPRETATIONNEGATIVE RECREATIONAL DRUG USE DRUG USE?NO PATIENT DENIES ABUSE OR MISSUSED OF ANY MEDICATION. CAFFEINE CAFFEINE USE?YES HOW OFTEN AND HOW MUCH? 2 CUPS COFFEE INTHE AM BOTTLE OF TEA IN THE MID MORNING HIV / HEP-C SCREENING HIV TEST OFFERED TO PATIENT:YES DATE OFFERED:02/02/2017 TEST ACCEPTED:NO HEP-C TEST OFFERED TO PATIENT:YES DATE OFFERED:02/02/2017 REASON:PATIENT DECLINED TEST ACCEPTED:NO REASON:PATIENT DECLINED TAOIST [id number] OTHER [facility] LANGUAGE PASHTO. 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 MARITAL STATUS: . OTHERS AT HOME: SPOUSE. PAIN CLINIC PFS, CLERGY, PUBLIC HEALTH REFERRALS PFS REFERRAL NEEDED?NO CLERGY REFERRAL NEEDED?NO PUBLIC HEALTH REFERRAL NEEDED?NO WAS THE PROVIDER NOTIFIED OF ANY PERTINENT INFO?YES HAS THE PATIENT BEEN EDUCATED REGARDING HIS/HER PLAN OF CARE?YES HAS THE PATIENT BEEN EDUCATED REGARDING PAIN, THE RISK FOR PAIN, THE IMPORTANCE OF EFFECTIVE PAIN MANAGEMENT, AND THE PAIN ASSESSMENT PROCESS?YES ADVANCE DIRECTIVE ADVANCE DIRECTIVE DISCUSSED WITH PATIENT:YES PATIENT DECLINES HCP INFORMATION AT THIS TIME. REVIEWED WITH PATIENT 02/10/18 [place]. HOSPITALIZATION/MAJOR DIAGNOSTIC PROCEDURE SURGERIES REVIEW OF SYSTEMS REVIEWED BY: PROVIDER: FRANCES DOMINGUEZ . CONSTITUTIONAL: ANY CHANGE IN YOUR MEDICAL CONDITION? NO . CHILLS NO . FEVER NO . INFECTION: DO YOU HAVE NEW INFECTIONS? NO . DO YOU HAVE HISTORY OF MRSA? NO . MUSCULOSKELETAL: ANY NEW PATTERNS OF PAIN OR NUMBNESS? NO . GASTROENTEROLOGY: ANY NEW CHANGE IN BOWEL CONTROL? NO . GENITOURINARY: ANY NEW CHANGE IN BLADDER CONTROL? NO . IS THERE A CHANCE YOU COULD BE ? NO . HEMATOLOGY/LYMPH: DO YOU TAKE ANY BLOOD THINNERS? (FOR EXAMPLE- COUMADIN, PLAVIX, AGGRENOX, PLATEL, PRADAXA, OR XARELTO) NO . WHEN WAS YOUR LAST DOSE? DATE: TIME: . NEUROLOGY: HAVE YOU FALLEN IN THE PAST 12 MONTHS? NO . ANY NEW EXTREMITY NUMBNESS OR WEAKNESS? YES, RIGHT LEG PAIN SPREADING, AND BILAT HAND TINGLING . CARDIOLOGY: DO YOU HAVE A PACEMAKER OR DEFIBRILLATOR? NO . RESPIRATORY: HAVE YOU BEEN SICK IN THE PAST WEEK? NO . FEVER NO . FLU LIKE SYMPTOMS? NO . COUGH NO . INTEGUMENTARY: DO YOU HAVE ANY RASHES OR OPEN SORES? NO . ALLERGIC/IMMUNO: ARE YOU ALLERGIC TO IV DYE? NO, IODINE . ANY NEW ALLERGIES? NO . PSYCHIATRIC: DO YOU HAVE THOUGHTS OF HURTING YOURSELF OR SOMEONE ELSE? NO . ARE YOU ABUSED, NEGLECTED, OR IN AN UNSAFE ENVIRONMENT? NO . ENDOCRINOLOGY: ARE YOU DIABETIC? YES . OTHER: DO YOU NEED ANY PRESCRIPTIONS? YES, TRAMADOL . IF YES, PLEASE LIST: ____ . ANY NEW PROBLEMS WITH YOUR MEDICATIONS? NO . WHEN DID YOU LAST EAT? ____ . WHEN DID YOU LAST DRINK? ____ . WHAT DID YOU LAST DRINK? ____ . NAME OF PERSON DRIVING YOU HOME? ____ . DO YOU HAVE ANY OTHER QUESTIONS OR CONCERNS NO . VITAL SIGNS WT 186.2 LBS, HT 61.5 IN, BMI 34.61 INDEX, BP 138/62 MM HG, HR 83 /MIN, RR 18 /MIN, TEMP 98.4 F, OXYGEN SAT % 97%, NA INITIALS SC 11:08, REVIEWED BY: EM. EXAMINATION GENERAL EXAMINATION: LUNGS:LUNG SOUNDS ARE CLEAR . HEART:HEART RATE REGULAR . MUSCULOSKELETAL:*, MUSCLE STRENGTH TESTING 5/5 BILATERAL UPPER EXTREMITIES. . CERVICAL+ FOR PAIN WITH PALPATION OF CERVICAL SPINE R>L. + FOR PAIN WITH PALPATION OF CERVICAL PARASPINALS. . ASSESSMENTS LUMBAGO OF LUMBAR REGION WITH SCIATICA - M54.40 (PRIMARY) TREATMENT LUMBAGO OF LUMBAR REGION WITH SCIATICA CONTINUE TOPIRAMATE TABLET, 150 MG, 1 TABLET, ORALLY, AT BEDTIME INCREASE CYMBALTA CAPSULE DELAYED RELEASE PARTICLES, 60 MG, 1 CAPSULE, ORALLY, ONCE A DAY, 30 DAY(S), 30, REFILLS 2 REFILL TRAMADOL HCL TABLET, 50 MG, 1 TAB, ORALLY, Q6H PRN PAIN MDD4, 30 DAY(S), 120, REFILLS 2 [facility] MRI SPINE, CERVICAL WITHOUT [id number] PROCEDURE CODES FA211 ESTABILISHED PATIENT [facility] CHARGE DISPOSITION & COMMUNICATION FOLLOW UP 6 WEEKS ELECTRONICALLY SIGNED BY ANGELICA LIZARRAGA ON 05/16/2018 AT 02:35 PM EDT DISCLAIMER : THIS IS A VISIT SUMMARY EXTRACTED FROM THE [employer] CHART. IT IS NOT A COPY OF THE [employer] PROGRESS NOTE. JIAN
== END ==
LOC: M PAIN 11:00
PROVIDERS: ATTEND Nurse Practitioner Family
DX: M54.40 Lumbago with sciatica, unspecified side (principal); G89.29 Other chronic pain; L40.52 Psoriatic arthritis mutilans; M79.7 Fibromyalgia; J45.909 Unspecified asthma, uncomplicated; F32.9 Major depressive disorder, single episode, unspecified; M19.90 Unspecified osteoarthritis, unspecified site; M21.379 Foot drop, unspecified foot; E11.9 Type 2 diabetes mellitus without complications; Z79.891 Long term (current) use of opiate analgesic; Z79.899 Other long term (current) drug therapy; Z88.1 Allergy status to other antibiotic agents; Z88.2 Allergy status to sulfonamides; Z88.6 Allergy status to analgesic agent; Z88.8 Allergy status to other drugs, medicaments and biological substances; Z91.018 Allergy to other foods; Z91.030 Bee allergy status; Z91.09 Other allergy status, other than to drugs and biological substances; Z91.041 Radiographic dye allergy status; Z87.891 Personal history of nicotine dependence

== ENCOUNTER → 2018-06-21 | Outpatient (CLI) | payer MEDICARE ==
[~2018-06-21] MED LIST changes: -/DULO30CA; -/DULO30CA OR; +CYMB1CAP4; +CYMB1CAP5; +CYMB1CAP5 OR; -DULO20CA; +FERR325T82 PO; -IRON325T7 PO
--- NOTE | 2018-06-23 01:54 | ECWPNPC ---
PATIENT NAME: MITESH MADRID : 1950 GENDER: FEMALE VISIT DATE: 06/21/2018 DISCHARGE DATE: 06/21/18 1535 VISIT LOCKED DATE TIME: PHYSICIAN: BONITA GALLARDO RESOURCE: BONITA GALLARDO REASON FOR APPOINTMENT 1. BACK HISTORY OF PRESENT ILLNESS HISTORY OF PRESENT ILLNESS: HERE FOR F/U OF CHRONIC GENERALIZED BACK PAIN.HX OF PSORIATIC ARTHRITIS.REPORTING INCREASE IN RIGHT NECK AND HEAD PAIN.HAVING BILATERAL HAND NUMBNES MORE FREQUENTLY.RATING PAIN VAS 4/10.USING TRAMADOL WITH SOME RELIEF.DISCUSSED TREATMENT OPTIONS.ON CHRONIC DMARD THERAPY FOR INFLAMMATORY ARTHROPATHY. PATIENTIS A68 YR OLD FEMALE THAT WAS SEEN IN 04/27. MRI OF CERVICAL SPINE SHOWS:MILD CENBTRAL STENOSIS AT C4-5.DIFFUSE DISC BULGE WITH UNCOVERTEBRAL SPURRING.SOME LIGAMENTUM FLAVUM HYPERTROPHY IS SEEN. CURRENT MEDICATIONS TAKING ACETAMINOPHEN 500 MG TABLET 1500MG ORALLY 1 TAB AM, 1 AT 3PM, 1 TAB AT BEDTIME TAKING ATORVASTATIN CALCIUM 40 MG TABLET 1 TABLET ORALLY ONCE A DAY TAKING BUSPIRONE HCL 30 MG TABLET 1 TABLET ORALLY DAILY TAKING BIOTIN 5000 5 MG CAPSULE 3 CAPSULE ORALLY ONCE A DAY, NOTES: HAIR SKIN AND NAILS TAKING CALCIUM 500 MG TABLET 2 TABS ORALLY 666MG DAILY, NOTES: WITH MAGNESIUM AND ZINC TAKING EZETIMIBE 10 MG TABLET 1 TABLET ORALLY ONCE A DAY TAKING FISH OIL 1500 MG CAPSULE 1 CAPSULE ORALLY ONCE A DAY TAKING LEFLUNOMIDE 20 MG TABLET 1 TABLET ORALLY ONCE A DAY TAKING LORATADINE 10 MG TABLET 1 TABLET ORALLY ONCE A DAY TAKING METFORMIN HCL 500 MG TABLET ORALLY DAILY TAKING MULTI-VITAMIN TABLET 1 TABLET ORALLY ONCE A DAY TAKING POTASSIUM CHLORIDE 10 MEQ CAPSULE EXTENDED RELEASE MCG ORALLY TAKE ON DAYS THAT TAKE TORSEMIDE, NOTES: NEEDED TAKING RELPAX 40 MG TABLET 1 TABLET NEEDED ONE TIME ORALLY ONCE A DAY PRN, NOTES: NEEDED TAKING TORSEMIDE 10 MG TABLET 1 TABLET ORALLY ON 3 DAYS, OFF 3 DAYS PRN EDEMA, NOTES: NEEDED TAKING VITAMIN D 2000 UNIT TABLET 1 TABLET ORALLY ONCE A DAY TAKING REMICADE 100 MG SOLUTION RECONSTITUTED INTRAVENOUS 700MG EVERY 5 WKS TAKING EMLA 2.5-2.5 % CREAM ONE APPLICATION EXTERNALLY PRN TAKING SYMBICORT 80-4.5 MCG/ACT AEROSOL 2 PUFFS INHALATION TWICE A DAY TAKING VENTOLIN HFA 108 (90 BASE) MCG/ACT AEROSOL SOLUTION 2 PUFFS NEEDED INHALATION EVERY 6 HRS TAKING PROTONIX 40 MG TABLET DELAYED RELEASE 1 TABLET ORALLY ONCE A DAY TAKING RANITIDINE HCL 150 MG CAPSULE 1 CAPSULE AT BEDTIME ORALLY ONCE A DAY TAKING FERROUS GLUCONATE 225 (27 FE) MG TABLET 1 TABLET ORALLY EVERY OTHER DAY TAKING GLUCOSAMINE CHOND COMPLEX/MSM - TABLET 2 TABLETS ORALLY DAILY, NOTES: UNSURE OF DOSE TAKING TOPIRAMATE 100 MG TABLET 1 TABLET IN AM ORALLY IN AM TAKING OXYBUTYNIN CHLORIDE 5 MG TABLET 1.5 TABS ORALLY TWICE DAILY TAKING TOPIRAMATE 150 MG TABLET 1 TABLET ORALLY AT BEDTIME TAKING CYMBALTA 60 MG CAPSULE DELAYED RELEASE PARTICLES 1 CAPSULE ORALLY ONCE A DAY TAKING TRAMADOL HCL 50 MG TABLET 1 TAB ORALLY Q6H PRN PAIN MDD4 TAKING CALCIPOTRIENE 0.005 % OINTMENT 1 APPLICATION TO AFFECTED AREA EXTERNALLY ONCE A DAY TAKING PROBIOTIC CAPSULE ORALLY DAILY NOT-TAKING GLUCOSAMINE SULFATE 500 MG TABLET 1 TABLET WITH A MEAL ORALLY ONCE A DAY NOT-TAKING REQUIP 0.5 MG TABLET 2 HOURS BEFORE BEDTIME ORALLY ONCE A DAY NOT-TAKING TOPIRAMATE 100 MG TABLET 1 TABLET ORALLY 1 IN AM AND IN EVENING NOT-TAKING VENLAFAXINE HCL 50 MG TABLET 150 MG CAP ORALLY DAILY NOT-TAKING OMEPRAZOLE 20 MG CAPSULE DELAYED RELEASE 1 CAP ORALLY BID NOT-TAKING CLOBETASOL PROPIONATE 0.05 % CREAM 1 APPLICATION TO AFFECTED AREA EXTERNALLY TWICE A DAY NEEDED MEDICATION LIST REVIEWED AND RECONCILED WITH THE PATIENT PAST MEDICAL HISTORY FIBROMYALGIA CHRONIC HEADACHE BORDERLINE DIABETES DEPRESSION PSORIATIC ARTHITIS OA DROP FOOT DDD STENOSIS 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29 LIFETIME BREAST CANCER RISK CALCULATED AT 5.9 % GENETIC MUTATION TEST NEG 2018 ASTHMA ALLERGIES CONTRAST MEDIA: RASH - ALLERGY IODINE: HIVES - ALLERGY NEOMYCIN SULFATE: RASH - ALLERGY POLYMYXIN B SULFATE: RASH - ALLERGY BEE VENOM: SWELLING - ALLERGY AMINOGLYCOSIDES: RASH - ALLERGY ASPIRIN: NAUSEA - ALLERGY IBUPROFEN: VOMITING - ALLERGY NAPROXEN: NAUSEA - ALLERGY DICLOFENAC: NAUSEA - ALLERGY GABAPENTIN: URINARY INCONTINENCE - SIDE EFFECTS APPLE (DIAGNOSTIC): SWELLING OF URETHRA/BLADDER MEMBRANES - ALLERGY NEOSPORIN: RASH - ALLERGY ENVIRONMENTAL: CONGESTION - ALLERGY ADHESIVE BANDAGES: RASH - ALLERGY SURGICAL HISTORY RECTOVAGINAL FISTULA REPAIR 1971 LAPAROSCOPY ENDOMETRIOSIS 1977 APPENDECTOMY WITH CARCINOID TYPE TUMOR 3 CM MASS REMOVED 1978 D&C LAPAROSCOPY 1981 ROSEANNA WITH OVARIAN PRESERVATION 1981 COLONOSCOPY NO POLYPS DUE 2017 2012 NECK SURGERY- DR. STREETER 05/2016 RIGHT EYE SURGERY 09/16/2017 BIOPSY LEFT EAR FAMILY HISTORY FATHER: 84 YRS, COLON CANCER IN 80'S HEART DISEASE, DIAGNOSED WITH HYPERTENSION MOTHER: 87 YRS, DM HEART DISEASE SIBLINGS: COLON CANCER BROTHER AT AGE 60'S AND MELANOMA ARM ,ANOTHER SISTER COLON CANCER AGE 61 ,DM TYPE 2 MATERNAL GRAND MOTHER: COLON CANCER COLON RESECTION PATERNAL AUNT: PANCREAS CANCER IN HER 60'S 2 BROTHER(S) , 3 SISTER(S) . GREAT PATERNAL UNCLE BLADDER CANCER. GREAT AUNT PATERNAL SIDE LUNG CANCER \NSISTER - CANCER\NBROTHER - CANCER. SOCIAL HISTORY GENERAL: TOBACCO USE ARE YOU A:FORMER SMOKER HOW LONG HAS IT BEEN SINCE YOU LAST SMOKED?1-5 YEARS LATEX QUESTIONNAIRE LATEX ALLERGY : HAVE YOU EVER DEVELOPED ANY TYPE OF REACTION AFTER HANDLING LATEX PRODUCTS SUCH RUBBER GLOVES, CONDOMS, DIAPHRAGMS, BALLOONS, SOCKS, OR UNDERWEAR?NO LATEX ALLERGY : HAVE YOU EVER DEVELOPED ANY TYPE OF REACTION DURING OR AFTER DENTAL APPOINTMENT, VAGINAL/RECTAL EXAMINATION, SURGICAL PROCEDURE, OR ANY OTHER EXPOSURE?NO LATEX RISK : HAVE YOU EVER HAD ANY DIFFICULTY BREATHING OR HIVES AFTER EATING OR HANDLING ANY FRUITS, OR VEGETABLES; SUCH KIWI, BANANAS, STONE FRUITS, OR CHESTNUTSNO LATEX RISK : DO YOU HAVE A PREVIOUS PERSONAL HISTORY OF MORE THAN NINE SURGERIES, SPINA BIFIDA, OR REPEATED CATHERTIZATIONS? NO LATEX RISK : ARE YOU FREQUENTLY EXPOSED TO LATEX PRODUCTS IN YOUR OCCUPATION?NO DATE ASKED : 06/21/2018 BMI CARE GOAL FOLLOW-UP ABOVE NORMAL BMI FOLLOW-UPGIVING ENCOURAGEMENT TO EXERCISE ALCOHOL SCREENING DID YOU HAVE A DRINK CONTAINING ALCOHOL IN THE PAST YEAR?NO POINTS0 INTERPRETATIONNEGATIVE RECREATIONAL DRUG USE DRUG USE?NO PATIENT DENIES ABUSE OR MISSUSED OF ANY MEDICATION. CAFFEINE CAFFEINE USE?YES HOW OFTEN AND HOW MUCH? 2 CUPS COFFEE INTHE AM BOTTLE OF TEA IN THE MID MORNING HIV / HEP-C SCREENING HIV TEST OFFERED TO PATIENT:YES DATE OFFERED:02/02/2017 TEST ACCEPTED:NO REASON:PATIENT DECLINED HEP-C TEST OFFERED TO PATIENT:YES DATE OFFERED:02/02/2017 TEST ACCEPTED:NO REASON:PATIENT DECLINED BAPTISM [id number] OTHER [facility] LANGUAGE OMANI. 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 MARITAL STATUS: . OTHERS AT HOME: SPOUSE. PAIN CLINIC PFS, CLERGY, PUBLIC HEALTH REFERRALS PFS REFERRAL NEEDED?NO CLERGY REFERRAL NEEDED?NO PUBLIC HEALTH REFERRAL NEEDED?NO WAS THE PROVIDER NOTIFIED OF ANY PERTINENT INFO?YES HAS THE PATIENT BEEN EDUCATED REGARDING HIS/HER PLAN OF CARE?YES HAS THE PATIENT BEEN EDUCATED REGARDING PAIN, THE RISK FOR PAIN, THE IMPORTANCE OF EFFECTIVE PAIN MANAGEMENT, AND THE PAIN ASSESSMENT PROCESS?YES ADVANCE DIRECTIVE ADVANCE DIRECTIVE DISCUSSED WITH PATIENT:YES PATIENT DECLINES HCP INFORMATION AND ASSISTANCE AT THIS TIME 06/21/18 REVIEWED WITH PATIENT 02/10/18 1024 JSREVIEWED WITH PT 06/21/18 1501 BV. HOSPITALIZATION/MAJOR DIAGNOSTIC PROCEDURE SURGERIES REVIEW OF SYSTEMS REVIEWED BY: PROVIDER: PEDRITO . CONSTITUTIONAL: ANY CHANGE IN YOUR MEDICAL CONDITION? NO . CHILLS NO . FEVER NO . INFECTION: DO YOU HAVE NEW INFECTIONS? NO . DO YOU HAVE HISTORY OF MRSA? NO . MUSCULOSKELETAL: ANY NEW PATTERNS OF PAIN OR NUMBNESS? NO . GASTROENTEROLOGY: ANY NEW CHANGE IN BOWEL CONTROL? NO . GENITOURINARY: ANY NEW CHANGE IN BLADDER CONTROL? NO . IS THERE A CHANCE YOU COULD BE ? NO . HEMATOLOGY/LYMPH: DO YOU TAKE ANY BLOOD THINNERS? (FOR EXAMPLE- COUMADIN, PLAVIX, AGGRENOX, PLATEL, PRADAXA, OR XARELTO) NO . WHEN WAS YOUR LAST DOSE? DATE: TIME: . NEUROLOGY: HAVE YOU FALLEN IN THE PAST 12 MONTHS? NO . ANY NEW EXTREMITY NUMBNESS OR WEAKNESS? NO . CARDIOLOGY: DO YOU HAVE A PACEMAKER OR DEFIBRILLATOR? NO . RESPIRATORY: HAVE YOU BEEN SICK IN THE PAST WEEK? NO . FEVER NO . FLU LIKE SYMPTOMS? NO . COUGH NO . INTEGUMENTARY: DO YOU HAVE ANY RASHES OR OPEN SORES? NO . ALLERGIC/IMMUNO: ARE YOU ALLERGIC TO IV DYE? YES . ANY NEW ALLERGIES? NO . PSYCHIATRIC: DO YOU HAVE THOUGHTS OF HURTING YOURSELF OR SOMEONE ELSE? NO . ARE YOU ABUSED, NEGLECTED, OR IN AN UNSAFE ENVIRONMENT? NO . ENDOCRINOLOGY: ARE YOU DIABETIC? YES, . OTHER: DO YOU NEED ANY PRESCRIPTIONS? YES, DULOXETINE . IF YES, PLEASE LIST: ____ . ANY NEW PROBLEMS WITH YOUR MEDICATIONS? NO . WHEN DID YOU LAST EAT? ____ . WHEN DID YOU LAST DRINK? ____ . WHAT DID YOU LAST DRINK? ____ . NAME OF PERSON DRIVING YOU HOME? ____ . DO YOU HAVE ANY OTHER QUESTIONS OR CONCERNS NO . VITAL SIGNS WT 183 LBS, HT 61.5 IN, BMI 34.01 INDEX, BP 133/64 MM HG, HR 89 /MIN, RR 18 /MIN, TEMP 96.5 F, OXYGEN SAT % 98%, NA INITIALS AW 1412, REVIEWED BY: BV. EXAMINATION GENERAL EXAMINATION: GENERAL APPEARANCE:NO ACUTE DISTRESS, WELL NOURISHED AND HYDRATED. NECK: FROM LINEAR SCAR X2 ANTERIOR NECK GENERALIZED TENDERNESS ALONG BILATERAL PARACERVICAL MUSCLES. LUNGS:CLEAR TO AUSCULTATION BILATERALLY, NO WHEEZES, RHONCHI, RALES. HEART:NO MURMURS, REGULAR RATE AND RHYTHM. BACK: LIMITED ROM TENDER TO BILATERAL LUMBAR PARASPINAL MUSCLES. 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 (REF # [id number] ) BRINGS IN MEDICATIONS WHICH IS APPROPRIATE FOR WHAT WAS DISPENSED. RECENT URINE TOXICOLOGY REVIEWED. NO UNAUTHORIZED MEDICATIONS. NO ILLICIT SUBSTANCES AND PRESCRIBED MEDICATIONS WERE PRESENT. DISCUSSION WITH PATIENT ABOUT TREATMENT OPTIONS. SHE DOES NOT WISH TO HAVE ANY PROCEDURES OR INJECTIONS INTO NECK OR LOWER BACK. SHE SAYS THE PREPARATION MAY INTERRUPT HER REMICADE INFUSIONS WHICH ARE EVERY 5 WEEKS.SHE WILL CALL FOR AN APPT SOONER IF HER SYMPTOMS WORSENS OR CHANGES. PROCEDURE CODES FA211 ESTABILISHED PATIENT FORMERLY [facility] CHARGE DISPOSITION & COMMUNICATION FOLLOW UP 3 MONTHS ELECTRONICALLY SIGNED BY ANGELICA AVENDANO ON 06/22/2018 AT 08:34 AM EDT DISCLAIMER : THIS IS A VISIT SUMMARY EXTRACTED FROM THE [employer] CHART. IT IS NOT A COPY OF THE [employer] PROGRESS NOTE. JIAN
== END ==
LOC: M PAIN 14:15
PROVIDERS: ATTEND Nurse Practitioner Family
DX: M50.20 Other cervical disc displacement, unspecified cervical region (principal); M54.40 Lumbago with sciatica, unspecified side; G89.29 Other chronic pain; M19.90 Unspecified osteoarthritis, unspecified site; M79.7 Fibromyalgia; E11.9 Type 2 diabetes mellitus without complications; Z86.59 Personal history of other mental and behavioral disorders; J45.909 Unspecified asthma, uncomplicated; Z87.891 Personal history of nicotine dependence; Z91.041 Radiographic dye allergy status; Z88.4 Allergy status to anesthetic agent; Z88.1 Allergy status to other antibiotic agents; Z91.030 Bee allergy status; Z88.6 Allergy status to analgesic agent; Z91.018 Allergy to other foods; Z91.09 Other allergy status, other than to drugs and biological substances; Z79.84 Long term (current) use of oral hypoglycemic drugs; Z79.891 Long term (current) use of opiate analgesic; Z79.899 Other long term (current) drug therapy

== ENCOUNTER → 2018-12-21 | Outpatient (CLI) | payer MEDICARE ==
[~2018-12-21] MED LIST changes: +ZETI10TA16 PO; -ZETI10TA30 PO
== END ==
LOC: M PAIN 10:45
PROVIDERS: ATTEND Nurse Practitioner Family
DX: M50.20 Other cervical disc displacement, unspecified cervical region (principal); M54.40 Lumbago with sciatica, unspecified side; G89.29 Other chronic pain; M79.7 Fibromyalgia; E11.9 Type 2 diabetes mellitus without complications; Z86.59 Personal history of other mental and behavioral disorders; J45.909 Unspecified asthma, uncomplicated; Z87.891 Personal history of nicotine dependence; Z88.1 Allergy status to other antibiotic agents; Z88.3 Allergy status to other anti-infective agents; Z88.6 Allergy status to analgesic agent; Z88.8 Allergy status to other drugs, medicaments and biological substances; Z91.018 Allergy to other foods; Z91.030 Bee allergy status; Z91.041 Radiographic dye allergy status; Z91.09 Other allergy status, other than to drugs and biological substances; Z79.84 Long term (current) use of oral hypoglycemic drugs; Z79.891 Long term (current) use of opiate analgesic; Z79.899 Other long term (current) drug therapy

== ENCOUNTER → 2019-01-19 | Outpatient (CLI) | payer MEDICARE ==
--- NOTE | 2019-01-19 13:36 | REPMRS ---
Patient History The patient states she had a clinical breast exam in 01/2019. Family history of colorectal cancer at age 50 or over in father, colorectal cancer at age 50 or over in maternal grandmother, colorectal cancer at age 50 or over in paternal grandmother, colorectal cancer at age 50 or over in sister, colorectal cancer at age 50 or over in brother, pancreatic cancer at age 50 or over in paternal aunt. Took estrogen for 15 years. Digital Woman Screen Mammo: January 19, 2019 - Exam #: [id number] Bilateral CC and MLO view(s) were taken. Technologist: Zofia Blanchard, Technologist Prior study comparison: February 03, 2018, bilateral digital woman screen mammo performed at [facility]. February 02, 2017, digital woman screen mammo performed at [facility]. January 29, 2016, digital woman screen mammo performed at [facility]. FINDINGS: The breast tissue is heterogeneously dense. This may lower the sensitivity of mammography. There is a moderate amount of heterogeneously dense fibroglandular tissue which is fairly symmetric. There is no interval development of dominant mass, architectural distortion, or grouped microcalcification typical of malignancy. There has been no change in the appearance of the mammogram from the prior studies. 3-D tomosynthesis shows no additional findings. Assessment: BI-RADS/ACR category 1 mammogram. Negative Mammogram. Recommendation Routine screening mammogram of both breasts in 1 year (for women over age 40). This patient's Lifetime Breast Cancer RIsk is estimated at 4.7 %. This mammogram was interpreted with the aid of an FDA-approved computer-aided dectection system. Electronically Signed By: Jerzy Pacheco MD 01/19/19 [id number]
== END ==
LOC: M WHC 10:31
PROVIDERS: ATTEND Nurse Practitioner Family
DX: Z12.31 Encounter for screening mammogram for malignant neoplasm of breast (principal); Z80.0 Family history of malignant neoplasm of digestive organs; Z92.23 Personal history of estrogen therapy
CPT/HCPCS: 77063; 77067; G0463

== ENCOUNTER → 2019-02-02 | Outpatient (CLI) | payer MEDICARE ==
--- NOTE | 2019-02-07 10:32 | REP ---
Clinical: Abnormal/changed bowel habits. Technique: Single supine view of the abdomen and pelvis. Findings: Bowel gas pattern is nonspecific although mild fecal stasis cannot be excluded. No residual sitz markers are identified. No organomegaly. No abnormal calcifications. Skeletal structures are intact. Impression: Relatively nonspecific bowel gas pattern. No residual sitz markers identified. Electronically Signed by Eitan Leon MD 02/07/2019 10:23 A
== END ==
LOC: M LAB 13:48
PROVIDERS: ATTEND Internal Medicine Gastroenterology
DX: R19.7 Diarrhea, unspecified (principal); D3A.012 Benign carcinoid tumor of the ileum; R19.4 Change in bowel habit

== ENCOUNTER → 2019-02-25 | Outpatient (REF) | payer MEDICARE ==
[2019-02-25 11:54] LABS: CLOSTRIDIUM DIFFICILE PCR NEGATIVE (NEGATIVE)
== END ==
LOC: M LAB REF 10:34
PROVIDERS: ATTEND Internal Medicine Gastroenterology
DX: R19.4 Change in bowel habit (principal)

== ENCOUNTER → 2019-03-15 | Outpatient (CLI) | payer MEDICARE ==
[~2019-03-15] MED LIST changes: +CALC500T68 PO; +D-20TAB PO; +FAMO40TA3 PO; +MAPA500T2 PO; +OMEG12003 PO; +PROBCAP14 PO; +RELP40TA PO; +TRIA25CR TOP
--- NOTE | 2019-03-17 12:42 | REP ---
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 Diarrhea. TECHNIQUE: 6.6 millicuries of Indium-111 Octreoscan is injected. 4-hour, 24-hour, and 8-hour delayed whole body images are acquired along with planar oblique images. SPECT imaging acquisition is acquired at 24 hours as well. Axial, coronal, and sagittal tomographic images of the upper abdomen are generated. SCINTIGRAPHIC FINDINGS: There is normal distribution of tracer to the liver, spleen, kidneys, and bowel. There is no evidence of focal uptake in the liver or elsewhere in the abdomen to suggest metastatic neural endocrine disease or occult mass. SPECT imaging acquisition shows no additional abnormality. No abnormal uptake in the thorax. IMPRESSION: Negative Octreoscan scintigraphy with SPECT imaging. Electronically Signed by Travis Pacheco MD 03/17/2019 06:27 P
== END ==
LOC: M RAD 07:28
PROVIDERS: ATTEND Internal Medicine Gastroenterology
DX: D3A.020 Benign carcinoid tumor of the appendix (principal); R19.7 Diarrhea, unspecified
CPT/HCPCS: 78803; 78804; A9572

== ENCOUNTER → 2019-03-23 | Outpatient (CLI) | payer MEDICARE ==
--- NOTE | 2019-04-09 08:52 | ECWPNPC ---
PATIENT NAME: MITESH MADRID : 1950 GENDER: FEMALE VISIT DATE: 03/23/2019 DISCHARGE DATE: 03/23/19 1136 VISIT LOCKED DATE TIME: PHYSICIAN: FRANCES LUCIA RESOURCE: FRANCES LUCIA REASON FOR APPOINTMENT 1. MED MGMNT HISTORY OF PRESENT ILLNESS HISTORY OF PRESENT ILLNESS: HERE FOR F/U OF CHRONIC GENERALIZED BACK PAIN.HX OF PSORIATIC ARTHRITIS. RATING PAIN VAS 1-2/10. FINDS CURRENT CHRONIC PAIN MEDICATION HELPFUL AT REDUCING PAIN AND KEEPING HER COMFORTABLE. ON CHRONIC IMMUNOTHERAPY FOR PSORIATIC ARTHRITIS. PAIN THE PATIENT DESCRIBES THE PAIN... FALL RISK SCREENING: SCREENING :NO FALLS REPORTED IN THE LAST YEAR CURRENT MEDICATIONS TAKING ACETAMINOPHEN 500 MG TABLET 1500MG ORALLY 1 TAB AM, 1 AT 3PM, 1 TAB AT BEDTIME, NOTES: 3 TIMES A DAY TAKING ATORVASTATIN CALCIUM 40 MG TABLET 1 TABLET ORALLY ONCE A DAY TAKING BUSPIRONE HCL 30 MG TABLET 1 TABLET ORALLY DAILY TAKING BIOTIN 5000 5 MG CAPSULE 3 CAPSULE ORALLY ONCE A DAY, NOTES: HAIR SKIN AND NAILS TAKING CALCIUM 500 MG TABLET 2 TABS ORALLY 666MG DAILY, NOTES: WITH MAGNESIUM AND ZINC TAKING FISH OIL 1500 MG CAPSULE 1 CAPSULE ORALLY ONCE A DAY TAKING LEFLUNOMIDE 20 MG TABLET 1 TABLET ORALLY ONCE A DAY TAKING LORATADINE 10 MG TABLET 1 TABLET ORALLY ONCE A DAY TAKING METFORMIN HCL 500 MG TABLET ORALLY DAILY TAKING MULTI-VITAMIN TABLET 1 TABLET ORALLY ONCE A DAY TAKING POTASSIUM CHLORIDE 10 MEQ CAPSULE EXTENDED RELEASE MCG ORALLY TAKE ON DAYS THAT TAKE TORSEMIDE, NOTES: NEEDED TAKING RELPAX 40 MG TABLET 1 TABLET NEEDED ONE TIME ORALLY ONCE A DAY PRN, NOTES: NEEDED TAKING TORSEMIDE 10 MG TABLET 1 TABLET ORALLY ON 3 DAYS, OFF 3 DAYS PRN EDEMA, NOTES: NEEDED TAKING VITAMIN D 2000 UNIT TABLET 1 TABLET ORALLY ONCE A DAY TAKING REMICADE 100 MG SOLUTION RECONSTITUTED INTRAVENOUS 700MG EVERY 5 WKS, NOTES: 01-17-19 TAKING VENTOLIN HFA 108 (90 BASE) MCG/ACT AEROSOL SOLUTION 2 PUFFS NEEDED INHALATION EVERY 6 HRS TAKING PROTONIX 40 MG TABLET DELAYED RELEASE 1 TABLET ORALLY ONCE A DAY TAKING RANITIDINE HCL 150 MG CAPSULE 1 CAPSULE AT BEDTIME ORALLY ONCE A DAY TAKING FERROUS GLUCONATE 225 (27 FE) MG TABLET 1 TABLET ORALLY EVERY OTHER DAY TAKING GLUCOSAMINE CHOND COMPLEX/MSM - TABLET 2 TABLETS ORALLY DAILY TAKING OXYBUTYNIN CHLORIDE 5 MG TABLET 1.5 TABS ORALLY TWICE DAILY TAKING PROBIOTIC CAPSULE ORALLY DAILY TAKING EMLA 2.5-2.5 % CREAM ONE APPLICATION EXTERNALLY PRN TAKING TRAMADOL HCL 50 MG TABLET 1 TAB ORALLY Q6H PRN PAIN MDD4 TAKING ARMONAIR RESPICLICK 113 113 MCG/ACT AEROSOL POWDER BREATH ACTIVATED 1 PUFF INHALATION TWICE A DAY TAKING CYMBALTA 60 MG CAPSULE DELAYED RELEASE PARTICLES 1 CAPSULE ORALLY ONCE A DAY NOT-TAKING EZETIMIBE 10 MG TABLET 1 TABLET ORALLY ONCE A DAY NOT-TAKING TOPIRAMATE 100 MG TABLET 1 TABLET IN AM ORALLY IN AM NOT-TAKING TOPIRAMATE 150 MG TABLET 1 TABLET ORALLY AT BEDTIME NOT-TAKING CALCIPOTRIENE 0.005 % OINTMENT 1 APPLICATION TO AFFECTED AREA EXTERNALLY ONCE A DAY NOT-TAKING FLUTICASONE PROPIONATE HFA 110 MCG/ACT AEROSOL 1 PUFF INHALATION TWICE A DAY NOT-TAKING PREDNISONE TAPER 1 TAB ORAL NOT-TAKING GLUCOSAMINE SULFATE 500 MG TABLET 1 TABLET WITH A MEAL ORALLY ONCE A DAY NOT-TAKING REQUIP 0.5 MG TABLET 2 HOURS BEFORE BEDTIME ORALLY ONCE A DAY NOT-TAKING TOPIRAMATE 100 MG TABLET 1 TABLET ORALLY 1 IN AM AND IN EVENING NOT-TAKING VENLAFAXINE HCL 50 MG TABLET 150 MG CAP ORALLY DAILY NOT-TAKING OMEPRAZOLE 20 MG CAPSULE DELAYED RELEASE 1 CAP ORALLY BID NOT-TAKING CLOBETASOL PROPIONATE 0.05 % CREAM 1 APPLICATION TO AFFECTED AREA EXTERNALLY TWICE A DAY NEEDED MEDICATION LIST REVIEWED AND RECONCILED WITH THE PATIENT PAST MEDICAL HISTORY FIBROMYALGIA CHRONIC HEADACHE DIABETES DEPRESSION PSORIATIC ARTHITIS OA DROP FOOT DDD STENOSIS 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29 LIFETIME BREAST CANCER RISK CALCULATED AT 5.9 % GENETIC MUTATION TEST NEG 2018 ASTHMA ALLERGIES CONTRAST MEDIA: RASH - ALLERGY IODINE: HIVES - ALLERGY NEOMYCIN SULFATE: RASH - ALLERGY POLYMYXIN B SULFATE: RASH - ALLERGY BEE VENOM: SWELLING - ALLERGY AMINOGLYCOSIDES: RASH - ALLERGY ASPIRIN: NAUSEA - ALLERGY IBUPROFEN: VOMITING - ALLERGY NAPROXEN: NAUSEA - ALLERGY DICLOFENAC: NAUSEA - ALLERGY GABAPENTIN: URINARY INCONTINENCE - SIDE EFFECTS APPLE (DIAGNOSTIC): SWELLING OF URETHRA/BLADDER MEMBRANES - ALLERGY NEOSPORIN: RASH - ALLERGY ENVIRONMENTAL: CONGESTION - ALLERGY ADHESIVE BANDAGES: RASH - ALLERGY SURGICAL HISTORY RECTOVAGINAL FISTULA REPAIR 1971 LAPAROSCOPY ENDOMETRIOSIS 1977 APPENDECTOMY WITH CARCINOID TYPE TUMOR 3 CM MASS REMOVED 1978 D&C LAPAROSCOPY 1981 ROSEANNA WITH OVARIAN PRESERVATION 1981 COLONOSCOPY NO POLYPS DUE 2018 2013 NECK SURGERY- DR. STREETER 05/2016 RIGHT EYE SURGERY 09/16/2017 BIOPSY LEFT EAR FAMILY HISTORY FATHER: 84 YRS, COLON CANCER IN 80'S HEART DISEASE, DIAGNOSED WITH HYPERTENSION MOTHER: 87 YRS, DM HEART DISEASE SIBLINGS: COLON CANCER BROTHER AT AGE 60'S AND MELANOMA ARM ,ANOTHER SISTER COLON CANCER AGE 61 ,DM TYPE 2, OTHER MALIGNANT NEOPLASM OF UNSPECIFIED SITE MATERNAL GRAND MOTHER: COLON CANCER COLON RESECTION PATERNAL AUNT: PANCREAS CANCER IN HER 60'S 2 BROTHER(S) , 3 SISTER(S) . GREAT PATERNAL UNCLE BLADDER CANCER. GREAT AUNT PATERNAL SIDE LUNG CANCER \NSISTER - CANCER\NBROTHER - CANCER. SOCIAL HISTORY GENERAL: TOBACCO USE ARE YOU A:FORMER SMOKER HOW LONG HAS IT BEEN SINCE YOU LAST SMOKED?1-5 YEARS HIV / HEP-C SCREENING HIV TEST OFFERED TO PATIENT:YES DATE OFFERED:02/02/2017 TEST ACCEPTED:NO HEP-C TEST OFFERED TO PATIENT:YES DATE OFFERED:02/02/2017 REASON:PATIENT DECLINED TEST ACCEPTED:NO REASON:PATIENT DECLINED OTHERS AT HOME: SPOUSE. DIET: REGULAR. LANGUAGE FRENCH. BMI CARE GOAL FOLLOW-UP ABOVE NORMAL BMI FOLLOW-UPGIVING ENCOURAGEMENT TO EXERCISE RECREATIONAL DRUG USE DRUG USE?NO PATIENT DENIES ABUSE OR MISSUSED OF ANY MEDICATION. EXERCISE: WALKS DAILY. LEARNING BARRIERS / SPECIAL NEEDS CHANGE FROM LAST VISIT?NO BARRIERS TO LEARNING?NO HEARING IMPAIRED?NO VISION IMPAIRED?YES COGNITIVELY IMPAIRED?NO :CORRECTIVE LENSES READINESS TO LEARN?YES LEARNING PREFERENCES?NO LEARNING CAPABILITIES PRESENT?YES EMOTIONAL BARRIERS?NO SPECIAL DEVICES?YES :CANE AERONAUTICAL PROJECT ENGINEER NEEDED?NO PAIN CLINIC PFS, CLERGY, PUBLIC HEALTH REFERRALS PFS REFERRAL NEEDED?NO CLERGY REFERRAL NEEDED?NO PUBLIC HEALTH REFERRAL NEEDED?NO WAS THE PROVIDER NOTIFIED OF ANY PERTINENT INFO?YES HAS THE PATIENT BEEN EDUCATED REGARDING HIS/HER PLAN OF CARE?YES HAS THE PATIENT BEEN EDUCATED REGARDING PAIN, THE RISK FOR PAIN, THE IMPORTANCE OF EFFECTIVE PAIN MANAGEMENT, AND THE PAIN ASSESSMENT PROCESS?YES LATEX QUESTIONNAIRE LATEX ALLERGY : HAVE YOU EVER DEVELOPED ANY TYPE OF REACTION AFTER HANDLING LATEX PRODUCTS SUCH RUBBER GLOVES, CONDOMS, DIAPHRAGMS, BALLOONS, SOCKS, OR UNDERWEAR?NO LATEX ALLERGY : HAVE YOU EVER DEVELOPED ANY TYPE OF REACTION DURING OR AFTER DENTAL APPOINTMENT, VAGINAL/RECTAL EXAMINATION, SURGICAL PROCEDURE, OR ANY OTHER EXPOSURE?NO DATE ASKED : 12/21/2018 LATEX RISK : HAVE YOU EVER HAD ANY DIFFICULTY BREATHING OR HIVES AFTER EATING OR HANDLING ANY FRUITS, OR VEGETABLES; SUCH KIWI, BANANAS, STONE FRUITS, OR CHESTNUTSNO LATEX RISK : DO YOU HAVE A PREVIOUS PERSONAL HISTORY OF MORE THAN NINE SURGERIES, SPINA BIFIDA, OR REPEATED CATHERIZATIONS? NO LATEX RISK : ARE YOU FREQUENTLY EXPOSED TO LATEX PRODUCTS IN YOUR OCCUPATION?NO CAFFEINE CAFFEINE USE?YES HOW OFTEN AND HOW MUCH? 2 CUPS COFFEE INTHE AM BOTTLE OF TEA IN THE MID MORNING ADVANCE DIRECTIVE ADVANCE DIRECTIVE DISCUSSED WITH PATIENT:YES PATIENT DECLINES HCP INFORMATION AND ASSISTANCE AT THIS TIME CAODAISM [id number] OTHER [facility] MARITAL STATUS: . 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 REVIEWED WITH PATIENT 02/10/18 1024 JSREVIEWED WITH PT 06/21/18 1501 BVREVIEWED WITH PT 09/20/18 1139 BV. HOSPITALIZATION/MAJOR DIAGNOSTIC PROCEDURE SURGERIES REVIEW OF SYSTEMS REVIEWED BY: PROVIDER: FRANCES DOMINGUEZ . CONSTITUTIONAL: ANY CHANGE IN YOUR MEDICAL CONDITION? NO . CHILLS NO . FEVER NO . INFECTION: DO YOU HAVE NEW INFECTIONS? NO . DO YOU HAVE HISTORY OF MRSA? NO . MUSCULOSKELETAL: ANY NEW PATTERNS OF PAIN OR NUMBNESS? NO . GASTROENTEROLOGY: ANY NEW CHANGE IN BOWEL CONTROL? NO . GENITOURINARY: ANY NEW CHANGE IN BLADDER CONTROL? NO . IS THERE A CHANCE YOU COULD BE ? NO . HEMATOLOGY/LYMPH: DO YOU TAKE ANY BLOOD THINNERS? (FOR EXAMPLE- COUMADIN, PLAVIX, AGGRENOX, PLATEL, PRADAXA, OR XARELTO) NO . WHEN WAS YOUR LAST DOSE? DATE: TIME: . NEUROLOGY: HAVE YOU FALLEN IN THE PAST 12 MONTHS? NO . ANY NEW EXTREMITY NUMBNESS OR WEAKNESS? NO . CARDIOLOGY: DO YOU HAVE A PACEMAKER OR DEFIBRILLATOR? NO . RESPIRATORY: HAVE YOU BEEN SICK IN THE PAST WEEK? NO . FEVER NO . FLU LIKE SYMPTOMS? NO . COUGH NO . INTEGUMENTARY: DO YOU HAVE ANY RASHES OR OPEN SORES? NO . ALLERGIC/IMMUNO: ARE YOU ALLERGIC TO IV DYE? NO . ANY NEW ALLERGIES? NO . PSYCHIATRIC: DO YOU HAVE THOUGHTS OF HURTING YOURSELF OR SOMEONE ELSE? NO . ARE YOU ABUSED, NEGLECTED, OR IN AN UNSAFE ENVIRONMENT? NO . ENDOCRINOLOGY: ARE YOU DIABETIC? NO . OTHER: DO YOU NEED ANY PRESCRIPTIONS? NO . IF YES, PLEASE LIST: ____ . ANY NEW PROBLEMS WITH YOUR MEDICATIONS? NO . WHEN DID YOU LAST EAT? ____ . WHEN DID YOU LAST DRINK? ____ . WHAT DID YOU LAST DRINK? ____ . NAME OF PERSON DRIVING YOU HOME? ____ . DO YOU HAVE ANY OTHER QUESTIONS OR CONCERNS NO . VITAL SIGNS WT 390.21 LBS, HT 61.5 IN, BMI 72.53 INDEX, BP 152/65 MM HG, HR 88 /MIN, RR 18 /MIN, TEMP 97.8 F, SAFE IN ENV? (Y/N) YES, REVIEWED BY: KG. EXAMINATION GENERAL EXAMINATION: GENERAL AWAKE,ALERT ,PLEASANT . PSYCH AFFECT NORMAL . LUNGS: LUNG HUBBARD ARE CLEAR TO AUSCULTATION BILATERALLY. GOOD MOVEMENT OF AIR . HEART: S1, S2 IN A REGULAR RATE AND RHYTHM. NO SIGNIFICANT MURMURS, RUBS OR GALLOPS NOTED . ASSESSMENTS OTHER CHRONIC PAIN - G89.29 (PRIMARY) PAIN, UNSPECIFIED - R52 TREATMENT OTHER CHRONIC PAIN CONTINUE TRAMADOL HCL TABLET, 50 MG, 1 TAB, ORALLY, Q6H PRN PAIN MDD4 CONTINUE CYMBALTA CAPSULE DELAYED RELEASE PARTICLES, 60 MG, 1 CAPSULE, ORALLY, ONCE A DAY PROCEDURE CODES FA211 ESTABILISHED PATIENT [facility] CHARGE DISPOSITION & COMMUNICATION FOLLOW UP 3 MONTHS (REASON: MED MGMNT) ELECTRONICALLY SIGNED BY ANGELICA LIZARRAGA ON 04/08/2019 AT 09:53 AM EST DISCLAIMER : THIS IS A VISIT SUMMARY EXTRACTED FROM THE ARI CHART. IT IS NOT A COPY OF THE [employer] PROGRESS NOTE. MTDD
== END ==
LOC: M PAIN 10:15
PROVIDERS: ATTEND Nurse Practitioner Family
DX: R52 Pain, unspecified (principal); M79.7 Fibromyalgia; E11.9 Type 2 diabetes mellitus without complications; Z79.84 Long term (current) use of oral hypoglycemic drugs; Z79.891 Long term (current) use of opiate analgesic; Z79.899 Other long term (current) drug therapy; Z87.891 Personal history of nicotine dependence; Z88.4 Allergy status to anesthetic agent; Z88.1 Allergy status to other antibiotic agents; Z88.8 Allergy status to other drugs, medicaments and biological substances; Z91.041 Radiographic dye allergy status; Z91.048 Other nonmedicinal substance allergy status; Z91.018 Allergy to other foods

== ENCOUNTER → 2019-04-04 | Outpatient (CLI) | payer MEDICARE ==
--- NOTE | 2019-04-04 12:12 | REP ---
Low-dose lung screening CT of the chest: The study is performed without IV contrast. The images are presented at lung window. Comparison is 04/01/2018. There are no masses or nodules. There are no infiltrates or pleural effusions. Impression: Category one low-dose lung screening CT of the chest. There is no interval change. The probability of malignancy is less than 1%. Depending there is factors consider follow-up annual low-dose lung screening CT. Electronically Signed by Octavio Merino MD 04/04/2019 12:03 P
== END ==
LOC: M RAD 09:53
PROVIDERS: ATTEND Nurse Practitioner Adult Health
DX: Z87.891 Personal history of nicotine dependence (principal)

== ENCOUNTER 2019-04-15 07:00 | Day surgery (SDC) | payer MEDICARE ==
[~2019-04-15] VITALS: Ht 156.2 cm; Wt 78.7 kg
[~2019-04-15 07:00] MED LIST changes: +LIDOCAINE 2% INJ 100 MG/5 ML SDV (FOR ANES.) As Ordered ONE; +NS 1,000 ML IV ONE; +propofoL 200 MG/20 ML VIAL As Ordered ONE
--- NOTE | 2019-04-15 08:50 | ROOR ---
Patient Name: Nano Crooks Procedure Date: 04/15/2019 8:16 AM Date of : 1950 Age: 69 Room: [facility] Gender: Female Note Status: Finalized Procedure: Colonoscopy Indications: Chronic diarrhea Providers: Nicanor HAMILTON MD Referring MD: SILVESTRE LAM Requesting Provider: Medicines: Monitored Anesthesia Care Complications: No immediate complications. Procedure: Pre-Anesthesia Assessment: - The heart rate, respiratory rate, oxygen saturations, blood pressure, adequacy of pulmonary ventilation, and response to care were monitored throughout the procedure. The Colonoscope was introduced through the anus and advanced to 10 cm into the ileum. The colonoscopy was performed without difficulty. The patient tolerated the procedure well. The quality of the bowel preparation was good. Findings: The perianal and digital rectal examinations were normal. The colon (entire examined portion) appeared normal. The terminal ileum appeared normal. Biopsies for histology were taken with a cold forceps for evaluation of microscopic colitis. Internal hemorrhoids were found during retroflexion. The hemorrhoids were small. Impression: - The entire colon is normal. - The examined portion of the ileum was normal. - Internal hemorrhoids. - Biopsies were taken with a cold forceps for evaluation of microscopic colitis. Recommendation: - Use fiber, for example Citrucel, Fibercon, Konsyl or Metamucil. - Telephone endoscopist for pathology results in 2 weeks. - Return to referring physician as previously scheduled. - Lactose free diet. Nicanor Hamilton MD Nicanor HAMILTON MD 04/15/2019 8:50:16 AM Electronically signed by Nicanor HAMILTON MD Number of Addenda: 0 Note Initiated On: 04/15/2019 8:16 AM Estimated Blood Loss: Estimated blood loss: none.
[2019-04-15 09:10] VITALS: BP 144/65
== END 2019-04-15 09:24 | disposition home or self-care (01) ==
LOC: M OPP 07:00
PROVIDERS: ATTEND Internal Medicine Gastroenterology
DX: K64.8 Other hemorrhoids (principal); K52.9 Noninfective gastroenteritis and colitis, unspecified; Z80.0 Family history of malignant neoplasm of digestive organs; Z79.899 Other long term (current) drug therapy; Z88.1 Allergy status to other antibiotic agents; Z88.4 Allergy status to anesthetic agent; Z88.8 Allergy status to other drugs, medicaments and biological substances; Z91.030 Bee allergy status; Z91.018 Allergy to other foods; Z91.048 Other nonmedicinal substance allergy status; Z91.041 Radiographic dye allergy status

== ENCOUNTER → 2019-06-22 | Outpatient (CLI) | payer MEDICARE ==
[~2019-06-22] MED LIST changes: -LIDOCAINE 2% INJ 100 MG/5 ML SDV (FOR ANES.) As Ordered ONE; -NS 1,000 ML IV ONE; -propofoL 200 MG/20 ML VIAL As Ordered ONE
--- NOTE | 2019-06-23 03:09 | ECWPNPC ---
PATIENT NAME: MITESH MADRID : 1950 GENDER: FEMALE VISIT DATE: 06/22/2019 DISCHARGE DATE: 06/22/19 1026 VISIT LOCKED DATE TIME: PHYSICIAN: FRANCES LUCIA RESOURCE: FRANCES LUCIA REASON FOR APPOINTMENT 1. MED MGMNT-PATIENT WOULD LIKE OFFICE VISIT HISTORY OF PRESENT ILLNESS HISTORY OF PRESENT ILLNESS: HERE FOR F/U OF CHRONIC GENERALIZED BACK PAIN.HX OF PSORIATIC ARTHRITIS. RATING PAIN VAS 1-2/10. FINDS CURRENT CHRONIC PAIN MEDICATION HELPFUL AT REDUCING PAIN AND KEEPING HER COMFORTABLE. ON CHRONIC IMMUNOTHERAPY FOR PSORIATIC ARTHRITIS. PAIN THE PATIENT DESCRIBES THE PAIN... FALL RISK SCREENING: SCREENING :NO FALLS REPORTED IN THE LAST YEAR CURRENT MEDICATIONS TAKING ACETAMINOPHEN 500 MG TABLET 1500MG ORALLY 1 TAB AM, 1 AT 3PM, 1 TAB AT BEDTIME, NOTES: 3 TIMES A DAY TAKING ATORVASTATIN CALCIUM 40 MG TABLET 1 TABLET ORALLY ONCE A DAY TAKING BUSPIRONE HCL 30 MG TABLET 1 TABLET ORALLY DAILY TAKING BIOTIN 5000 5 MG CAPSULE 3 CAPSULE ORALLY ONCE A DAY, NOTES: HAIR SKIN AND NAILS TAKING CALCIUM 500 MG TABLET 2 TABS ORALLY 666MG DAILY, NOTES: WITH MAGNESIUM AND ZINC TAKING FISH OIL 1500 MG CAPSULE 1 CAPSULE ORALLY ONCE A DAY TAKING LEFLUNOMIDE 20 MG TABLET 1 TABLET ORALLY ONCE A DAY TAKING LORATADINE 10 MG TABLET 1 TABLET ORALLY ONCE A DAY TAKING METFORMIN HCL 500 MG TABLET ORALLY DAILY TAKING MULTI-VITAMIN TABLET 1 TABLET ORALLY ONCE A DAY TAKING POTASSIUM CHLORIDE 10 MEQ CAPSULE EXTENDED RELEASE MCG ORALLY TAKE ON DAYS THAT TAKE TORSEMIDE, NOTES: NEEDED TAKING RELPAX 40 MG TABLET 1 TABLET NEEDED ONE TIME ORALLY ONCE A DAY PRN, NOTES: NEEDED TAKING TORSEMIDE 10 MG TABLET 1 TABLET ORALLY ON 3 DAYS, OFF 3 DAYS PRN EDEMA, NOTES: NEEDED TAKING VITAMIN D 2000 UNIT TABLET 1 TABLET ORALLY ONCE A DAY TAKING VENTOLIN HFA 108 (90 BASE) MCG/ACT AEROSOL SOLUTION 2 PUFFS NEEDED INHALATION EVERY 6 HRS TAKING PROTONIX 40 MG TABLET DELAYED RELEASE 1 TABLET ORALLY ONCE A DAY TAKING FERROUS GLUCONATE 225 (27 FE) MG TABLET 1 TABLET ORALLY EVERY OTHER DAY TAKING GLUCOSAMINE CHOND COMPLEX/MSM - TABLET 2 TABLETS ORALLY DAILY TAKING PROBIOTIC CAPSULE ORALLY DAILY TAKING EMLA 2.5-2.5 % CREAM ONE APPLICATION EXTERNALLY PRN TAKING ARMONAIR RESPICLICK 113 113 MCG/ACT AEROSOL POWDER BREATH ACTIVATED 1 PUFF INHALATION TWICE A DAY TAKING OXYBUTYNIN CHLORIDE 5 MG TABLET 1.5 TABS ORALLY TWICE DAILY TAKING CYMBALTA 60 MG CAPSULE DELAYED RELEASE PARTICLES 1 CAPSULE ORALLY ONCE A DAY TAKING TRAMADOL HCL 50 MG TABLET 1 TAB ORALLY Q6H PRN PAIN MDD4 TAKING FAMOTIDINE 40 MG TABLET 1 TABLET AT BEDTIME ORALLY ONCE A DAY TAKING SIMPONI ARIA 50 MG/4ML SOLUTION DIRECTED INTRAVENOUS NOT-TAKING REMICADE 100 MG SOLUTION RECONSTITUTED INTRAVENOUS 700MG EVERY 5 WKS NOT-TAKING RANITIDINE HCL 150 MG CAPSULE 1 CAPSULE AT BEDTIME ORALLY ONCE A DAY NOT-TAKING EZETIMIBE 10 MG TABLET 1 TABLET ORALLY ONCE A DAY NOT-TAKING TOPIRAMATE 100 MG TABLET 1 TABLET IN AM ORALLY IN AM NOT-TAKING TOPIRAMATE 150 MG TABLET 1 TABLET ORALLY AT BEDTIME NOT-TAKING CALCIPOTRIENE 0.005 % OINTMENT 1 APPLICATION TO AFFECTED AREA EXTERNALLY ONCE A DAY NOT-TAKING FLUTICASONE PROPIONATE HFA 110 MCG/ACT AEROSOL 1 PUFF INHALATION TWICE A DAY NOT-TAKING PREDNISONE TAPER 1 TAB ORAL NOT-TAKING GLUCOSAMINE SULFATE 500 MG TABLET 1 TABLET WITH A MEAL ORALLY ONCE A DAY NOT-TAKING REQUIP 0.5 MG TABLET 2 HOURS BEFORE BEDTIME ORALLY ONCE A DAY NOT-TAKING TOPIRAMATE 100 MG TABLET 1 TABLET ORALLY 1 IN AM AND IN EVENING NOT-TAKING VENLAFAXINE HCL 50 MG TABLET 150 MG CAP ORALLY DAILY NOT-TAKING OMEPRAZOLE 20 MG CAPSULE DELAYED RELEASE 1 CAP ORALLY BID NOT-TAKING CLOBETASOL PROPIONATE 0.05 % CREAM 1 APPLICATION TO AFFECTED AREA EXTERNALLY TWICE A DAY NEEDED MEDICATION LIST REVIEWED AND RECONCILED WITH THE PATIENT PAST MEDICAL HISTORY FIBROMYALGIA CHRONIC HEADACHE DIABETES DEPRESSION PSORIATIC ARTHITIS OA DROP FOOT DDD STENOSIS 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29 LIFETIME BREAST CANCER RISK CALCULATED AT 5.9 % GENETIC MUTATION TEST NEG 2018 ASTHMA ALLERGIES CONTRAST MEDIA: RASH - ALLERGY IODINE: HIVES - ALLERGY NEOMYCIN SULFATE: RASH - ALLERGY POLYMYXIN B SULFATE: RASH - ALLERGY BEE VENOM: SWELLING - ALLERGY AMINOGLYCOSIDES: RASH - ALLERGY ASPIRIN: NAUSEA - ALLERGY IBUPROFEN: VOMITING - ALLERGY NAPROXEN: NAUSEA - ALLERGY DICLOFENAC: NAUSEA - ALLERGY GABAPENTIN: URINARY INCONTINENCE - SIDE EFFECTS APPLE (DIAGNOSTIC): SWELLING OF URETHRA/BLADDER MEMBRANES - ALLERGY NEOSPORIN: RASH - ALLERGY ENVIRONMENTAL: CONGESTION - ALLERGY ADHESIVE BANDAGES: RASH - ALLERGY SURGICAL HISTORY RECTOVAGINAL FISTULA REPAIR 1971 LAPAROSCOPY ENDOMETRIOSIS 1978 APPENDECTOMY WITH CARCINOID TYPE TUMOR 3 CM MASS REMOVED 1978 D&C LAPAROSCOPY 1981 ROSEANNA WITH OVARIAN PRESERVATION 1981 COLONOSCOPY NO POLYPS DUE 2017 2012 NECK SURGERY- DR. STREETER 05/2016 RIGHT EYE SURGERY 09/16/2017 BIOPSY LEFT EAR FAMILY HISTORY FATHER: 84 YRS, COLON CANCER IN 80'S HEART DISEASE, DIAGNOSED WITH HYPERTENSION MOTHER: 87 YRS, DM HEART DISEASE SIBLINGS: COLON CANCER BROTHER AT AGE 60'S AND MELANOMA ARM ,ANOTHER SISTER COLON CANCER AGE 61 ,DM TYPE 2, OTHER MALIGNANT NEOPLASM OF UNSPECIFIED SITE MATERNAL GRAND MOTHER: COLON CANCER COLON RESECTION PATERNAL AUNT: PANCREAS CANCER IN HER 60'S 2 BROTHER(S) , 3 SISTER(S) . GREAT PATERNAL UNCLE BLADDER CANCER. GREAT AUNT PATERNAL SIDE LUNG CANCER \NSISTER - CANCER\NBROTHER - CANCER. SOCIAL HISTORY GENERAL: TOBACCO USE ARE YOU A:FORMER SMOKER HOW LONG HAS IT BEEN SINCE YOU LAST SMOKED?1-5 YEARS HIV / HEP-C SCREENING HIV TEST OFFERED TO PATIENT:YES DATE OFFERED:02/02/2017 TEST ACCEPTED:NO HEP-C TEST OFFERED TO PATIENT:YES DATE OFFERED:02/02/2017 REASON:PATIENT DECLINED TEST ACCEPTED:NO REASON:PATIENT DECLINED OTHERS AT HOME: SPOUSE. DIET: REGULAR. LANGUAGE SAUDI ARABIAN. NEW PATIENT PAIN DIARY TODAY'S VISITNOTES 06/22/2019 PATIENT DESCRIBES PAIN :ACHING, HAVE IT ALL THE TIME FROM 0-10, WHAT LEVEL IS YOUR PAIN TODAY?2 BMI CARE GOAL FOLLOW-UP ABOVE NORMAL BMI FOLLOW-UPGIVING ENCOURAGEMENT TO EXERCISE RECREATIONAL DRUG USE DRUG USE?NO PATIENT DENIES ABUSE OR MISSUSED OF ANY MEDICATION. EXERCISE: WALKS DAILY. 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?NO PAIN CLINIC PFS, CLERGY, PUBLIC HEALTH REFERRALS PFS REFERRAL NEEDED?NO CLERGY REFERRAL NEEDED?NO PUBLIC HEALTH REFERRAL NEEDED?NO WAS THE PROVIDER NOTIFIED OF ANY PERTINENT INFO?YES HAS THE PATIENT BEEN EDUCATED REGARDING HIS/HER PLAN OF CARE?YES HAS THE PATIENT BEEN EDUCATED REGARDING PAIN, THE RISK FOR PAIN, THE IMPORTANCE OF EFFECTIVE PAIN MANAGEMENT, AND THE PAIN ASSESSMENT PROCESS?YES LATEX QUESTIONNAIRE LATEX ALLERGY : HAVE YOU EVER DEVELOPED ANY TYPE OF REACTION AFTER HANDLING LATEX PRODUCTS SUCH RUBBER GLOVES, CONDOMS, DIAPHRAGMS, BALLOONS, SOCKS, OR UNDERWEAR?NO LATEX ALLERGY : HAVE YOU EVER DEVELOPED ANY TYPE OF REACTION DURING OR AFTER DENTAL APPOINTMENT, VAGINAL/RECTAL EXAMINATION, SURGICAL PROCEDURE, OR ANY OTHER EXPOSURE?NO LATEX RISK : HAVE YOU EVER HAD ANY DIFFICULTY BREATHING OR HIVES AFTER EATING OR HANDLING ANY FRUITS, OR VEGETABLES; SUCH KIWI, BANANAS, STONE FRUITS, OR CHESTNUTSNO LATEX RISK : DO YOU HAVE A PREVIOUS PERSONAL HISTORY OF MORE THAN NINE SURGERIES, SPINA BIFIDA, OR REPEATED CATHERIZATIONS? NO LATEX RISK : ARE YOU FREQUENTLY EXPOSED TO LATEX PRODUCTS IN YOUR OCCUPATION?NO DATE ASKED : 06/22/2019 CAFFEINE CAFFEINE USE?YES HOW OFTEN AND HOW MUCH? 2 CUPS COFFEE INTHE AM BOTTLE OF TEA IN THE MID MORNING ADVANCE DIRECTIVE ADVANCE DIRECTIVE DISCUSSED WITH PATIENT:YES PATIENT DECLINES HCP INFORMATION AND ASSISTANCE AT THIS TIME. MU-ISM [id number] OTHER [facility] MARITAL STATUS: . 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 HOSPITALIZATION/MAJOR DIAGNOSTIC PROCEDURE SURGERIES REVIEW OF SYSTEMS REVIEWED BY: PROVIDER: FRANCES DOMINGUEZ . CONSTITUTIONAL: ANY CHANGE IN YOUR MEDICAL CONDITION? NO . CHILLS NO . FEVER NO . INFECTION: DO YOU HAVE NEW INFECTIONS? NO . DO YOU HAVE HISTORY OF MRSA? NO . MUSCULOSKELETAL: ANY NEW PATTERNS OF PAIN OR NUMBNESS? NO . GASTROENTEROLOGY: ANY NEW CHANGE IN BOWEL CONTROL? NO . GENITOURINARY: ANY NEW CHANGE IN BLADDER CONTROL? NO . IS THERE A CHANCE YOU COULD BE ? NO . HEMATOLOGY/LYMPH: DO YOU TAKE ANY BLOOD THINNERS? (FOR EXAMPLE- COUMADIN, PLAVIX, AGGRENOX, PLATEL, PRADAXA, OR XARELTO) NO . WHEN WAS YOUR LAST DOSE? DATE: TIME: . NEUROLOGY: HAVE YOU FALLEN IN THE PAST 12 MONTHS? YES, 2 FALLS IN MARCH ON THE ICE, NO MAJOR INJURIES, NO ED VISIT . ANY NEW EXTREMITY NUMBNESS OR WEAKNESS? NO . CARDIOLOGY: DO YOU HAVE A PACEMAKER OR DEFIBRILLATOR? NO . RESPIRATORY: HAVE YOU BEEN SICK IN THE PAST WEEK? NO . FEVER NO . FLU LIKE SYMPTOMS? NO . COUGH NO . INTEGUMENTARY: DO YOU HAVE ANY RASHES OR OPEN SORES? NO . ALLERGIC/IMMUNO: ARE YOU ALLERGIC TO IV DYE? NO . ANY NEW ALLERGIES? NO . PSYCHIATRIC: DO YOU HAVE THOUGHTS OF HURTING YOURSELF OR SOMEONE ELSE? NO . ARE YOU ABUSED, NEGLECTED, OR IN AN UNSAFE ENVIRONMENT? NO . ENDOCRINOLOGY: ARE YOU DIABETIC? YES . OTHER: DO YOU NEED ANY PRESCRIPTIONS? NO . IF YES, PLEASE LIST: ____ . ANY NEW PROBLEMS WITH YOUR MEDICATIONS? NO . WHEN DID YOU LAST EAT? ____ . WHEN DID YOU LAST DRINK? ____ . WHAT DID YOU LAST DRINK? ____ . NAME OF PERSON DRIVING YOU HOME? ____ . DO YOU HAVE ANY OTHER QUESTIONS OR CONCERNS NO . VITAL SIGNS WT 183.0 LBS, HT 61.5 IN, BMI 34.01 INDEX, BP 145/65 MM HG, HR 107 /MIN, RR 18 /MIN, TEMP 97.6 F, OXYGEN SAT % 95%, SAFE IN ENV? (Y/N) YES, NA INITIALS AW [id number], REVIEWED BY: MENA. EXAMINATION GENERAL EXAMINATION: GENERALAWAKE,ALERT ,PLEASANT . PSYCHAFFECT NORMAL . LUNGS:LUNG HUBBARD ARE CLEAR TO AUSCULTATION BILATERALLY. GOOD MOVEMENT OF AIR . HEART:S1, S2 IN A REGULAR RATE AND RHYTHM. NO SIGNIFICANT MURMURS, RUBS OR GALLOPS NOTED . ASSESSMENTS OTHER CHRONIC PAIN - G89.29 (PRIMARY) TREATMENT OTHER CHRONIC PAIN CONTINUE CYMBALTA CAPSULE DELAYED RELEASE PARTICLES, 60 MG, 1 CAPSULE, ORALLY, ONCE A DAY CONTINUE TRAMADOL HCL TABLET, 50 MG, 1 TAB, ORALLY, Q6H PRN PAIN MDD4 NOTES: ISTOP REGISTRY REVIEWED AND DEMONSTRATES COMPLLIANCE. BRINGS IN MEDICATIONS WHICH IS APPROPRIATE FOR WHAT WAS DISPENSED. RECENT URINE TOXICOLOGY REVIEWED. NO UNAUTHORIZED MEDICATIONS. NO ILLICIT SUBSTANCES AND PRESCRIBED MEDICATIONS WERE PRESENT. , RISKS OF NARCOTIC/OPIOD MEDICATIONS INCLUDES BUT IS NOT LIMITED TO RISK OF DEPENDANCE/DEVELOPMENT OF ADDICTION, MOOD DISTURBANCE AND DEPRESSION, OSTEOPOROSIS, HORMONAL AND LABIDAL CHANGES, RESPIRATORY DEPRESSION AND . PATIENT IS ADVISED NOT TO DRIVE OR DRINK ALCOHOL WHILE ON THESE MEDICATIONS. DISPOSITION & COMMUNICATION FOLLOW UP 3 MONTHS (REASON: MED MGMNT/UTOX) ELECTRONICALLY SIGNED BY ANGELICA LIZARRAGA ON 06/22/2019 AT 01:23 PM EDT DISCLAIMER : THIS IS A VISIT SUMMARY EXTRACTED FROM THE [employer] CHART. IT IS NOT A COPY OF THE [employer] PROGRESS NOTE. MTDD
== END ==
LOC: M PAIN 10:00
PROVIDERS: ATTEND Nurse Practitioner Family
DX: G89.29 Other chronic pain (principal)

== ENCOUNTER → 2019-09-21 | Outpatient (CLI) | payer MEDICARE ==
[~2019-09-21] MED LIST changes: +PANT40TA29 PO; -PANT40TA3 PO
--- NOTE | 2019-09-24 04:44 | ECWPNPC ---
PATIENT NAME: MITESH MADRID : 1950 GENDER: FEMALE VISIT DATE: 09/21/2019 DISCHARGE DATE: 09/21/19 1115 VISIT LOCKED DATE TIME: PHYSICIAN: FRANCES LUCIA RESOURCE: FRANCES LUCIA REASON FOR APPOINTMENT 1. BACK/MEDS/UTOX HISTORY OF PRESENT ILLNESS GENERAL: HERE FOR ROUTINE FOLLOW-UP OF GENERALIZED ARTHROPATHY SECONDARY TO PSORIATIC ARTHRITIS. HAVING A SIGNIFICANT FLAREUP WITH ARTHRITIS PAIN AND NEW ONSET OF RIGHT ARM PAIN AND TINGLING. HAS BEEN WORKING IN [place] AND FEELS THIS IS AGGRAVATED THIS. FINDS TO SLEEP AT NIGHT DIFFICULT. DISCUSSED MEDICATION OPTIONS. HAS RECENTLY STARTED NEW MEDICATION FOR PSORIATIC ARTHRITIS. -. FALL RISK SCREENING: SCREENING :TWO OR MORE FALLS WITHOUT INJURY IN THE PAST YEAR SLIPPED ON ICE X2 IN MAR. PAIN SCREENING: PATIENT HAS A COMPLAINT OF ACUTE OR CHRONIC PAIN :YES LOCATION OF PAIN:NECK, MID BACK, LOW BACK, LEFT HIP, RIGHT HIP, HAND(S), KNEES, FEET, OTHER: BILATERAL ARMS INTENSITY OF PAIN (SCALE OF 1 TO 10):6 AVERAGE 6-8/10 WHAT DOES YOUR PAIN FEEL LIKE:ACHING, CONTINOUS, TENDER, SORE, SHOOTING, OTHER TINGLING DURATION:CONTINOUS, CONSTANT, STEADY, ALL DAY, AWAKENS FROM SLEEP WAKES HER IF SHE IS NOT ON HER BACK PAIN IS INCREASED BY: ANY ACTIVITY PAIN IS DECREASED BY: LAYING ON HER BACK, MEDS DECREASE IT BUT DOESN'T TAKE IT AWAY NURSING NOTE: -. PAIN CENTER INTAKE QUESTIONS: DO YOU HAVE A HISTORY OF MRSA? :NO DO YOU TAKE A BLOOD THINNERS? :NO DO YOU HAVE ANY BLEEDING DISORDERS? :NO ANY NEW NUMBNESS OR WEAKNESS IN YOUR LEGS OR ARMS? :YES TINGLING RIGHT SHOULDER TO ELBOW(INTERMITTENT) FOR THE PAST WEEK ANY PACEMAKER,DEFIBRILLATOR, OR DORSAL COLUMN STIMULATOR? :NO DO YOU HAVE ANY RASHES OR OPEN SORES? :NO ARE YOU ALLERGIC TO IV DYE? :YES SEVERE REACTION TO IVP DYE-HIVES, SHAKING,BREATHING DIFF. ARE YOU DIABETIC? :YES ON METFORMIN ANY NEW PROBLEMS WITH YOUR MEDICATIONS? :NO HAVE YOU RECEIVED A VACCINE IN THE PAST 30 DAYS? :NO DO YOU PLAN TO RECEIVE A VACCINE IN THE NEXT 21 DAYS? :NO DO YOU NEED ANY PRESCRIPTION? :NO DO YOU TAKE ANY IMMUNOSUPPRESSIVE MEDICATIONS? :YES SIMPONI ARIA ANY HISTORY OF SEIZURES? :NO ANY HISTORY OF CARDIAC ISSUES OR EVENTS? :NO DO YOU HAVE SLEEP APNEA? :NO ANY RECENT HEAD INJURY? :NO DO YOU HAVE ANY NEW INFECTIONS? :NO IS THERE A CHANCE YOU COULD BE ? :NO ARE YOU BREAST FEEDING? :NO WHEN DID YOU LAST EAT? : - WHEN DID YOU LAST DRINK? : - WHAT DID YOU LAST DRINK? : - NAME OF PERSON DRIVING YOU HOME? : - DO YOU HAVE ANY OTHER QUESTIONS OR CONCERNS? : NONE CURRENT MEDICATIONS TAKING ACETAMINOPHEN 500 MG TABLET 1500MG ORALLY 1 TAB AM, 1 AT 3PM, 1 TAB AT BEDTIME, NOTES: 3 TIMES A DAY TAKING ATORVASTATIN CALCIUM 40 MG TABLET 1 TABLET ORALLY ONCE A DAY TAKING BUSPIRONE HCL 30 MG TABLET 1 TABLET ORALLY DAILY TAKING BIOTIN 5000 5 MG CAPSULE 3 CAPSULE ORALLY ONCE A DAY, NOTES: HAIR SKIN AND NAILS TAKING CALCIUM 500 MG TABLET 2 TABS ORALLY 666MG DAILY, NOTES: WITH MAGNESIUM AND ZINC TAKING FISH OIL 1500 MG CAPSULE 1 CAPSULE ORALLY ONCE A DAY TAKING LEFLUNOMIDE 20 MG TABLET 1 TABLET ORALLY ONCE A DAY TAKING LORATADINE 10 MG TABLET 1 TABLET ORALLY ONCE A DAY TAKING METFORMIN HCL 500 MG TABLET ORALLY DAILY TAKING MULTI-VITAMIN TABLET 1 TABLET ORALLY ONCE A DAY TAKING POTASSIUM CHLORIDE 10 MEQ CAPSULE EXTENDED RELEASE MCG ORALLY TAKE ON DAYS THAT TAKE TORSEMIDE, NOTES: NEEDED TAKING RELPAX 40 MG TABLET 1 TABLET NEEDED ONE TIME ORALLY ONCE A DAY PRN, NOTES: NEEDED TAKING TORSEMIDE 10 MG TABLET 1 TABLET ORALLY ON 3 DAYS, OFF 3 DAYS PRN EDEMA, NOTES: NEEDED TAKING VITAMIN D 2000 UNIT TABLET 1 TABLET ORALLY ONCE A DAY TAKING VENTOLIN HFA 108 (90 BASE) MCG/ACT AEROSOL SOLUTION 2 PUFFS NEEDED INHALATION EVERY 6 HRS TAKING PROTONIX 40 MG TABLET DELAYED RELEASE 1 TABLET ORALLY ONCE A DAY TAKING FERROUS GLUCONATE 225 (27 FE) MG TABLET 1 TABLET ORALLY EVERY OTHER DAY TAKING GLUCOSAMINE CHOND COMPLEX/MSM - TABLET 2 TABLETS ORALLY DAILY TAKING PROBIOTIC CAPSULE ORALLY DAILY TAKING EMLA 2.5-2.5 % CREAM ONE APPLICATION EXTERNALLY PRN TAKING ARMONAIR RESPICLICK 113 113 MCG/ACT AEROSOL POWDER BREATH ACTIVATED 1 PUFF INHALATION TWICE A DAY TAKING OXYBUTYNIN CHLORIDE 5 MG TABLET 1.5 TABS ORALLY TWICE DAILY TAKING FAMOTIDINE 40 MG TABLET 1 TABLET AT BEDTIME ORALLY ONCE A DAY TAKING SIMPONI ARIA 50 MG/4ML SOLUTION DIRECTED INTRAVENOUS TAKING CYMBALTA 60 MG CAPSULE DELAYED RELEASE PARTICLES 1 CAPSULE ORALLY ONCE A DAY TAKING TRAMADOL HCL 50 MG TABLET 1 TAB ORALLY Q6H PRN PAIN MDD4 NOT-TAKING REMICADE 100 MG SOLUTION RECONSTITUTED INTRAVENOUS 700MG EVERY 5 WKS NOT-TAKING RANITIDINE HCL 150 MG CAPSULE 1 CAPSULE AT BEDTIME ORALLY ONCE A DAY NOT-TAKING EZETIMIBE 10 MG TABLET 1 TABLET ORALLY ONCE A DAY NOT-TAKING TOPIRAMATE 100 MG TABLET 1 TABLET IN AM ORALLY IN AM NOT-TAKING TOPIRAMATE 150 MG TABLET 1 TABLET ORALLY AT BEDTIME NOT-TAKING CALCIPOTRIENE 0.005 % OINTMENT 1 APPLICATION TO AFFECTED AREA EXTERNALLY ONCE A DAY NOT-TAKING FLUTICASONE PROPIONATE HFA 110 MCG/ACT AEROSOL 1 PUFF INHALATION TWICE A DAY NOT-TAKING PREDNISONE TAPER 1 TAB ORAL NOT-TAKING GLUCOSAMINE SULFATE 500 MG TABLET 1 TABLET WITH A MEAL ORALLY ONCE A DAY NOT-TAKING REQUIP 0.5 MG TABLET 2 HOURS BEFORE BEDTIME ORALLY ONCE A DAY NOT-TAKING TOPIRAMATE 100 MG TABLET 1 TABLET ORALLY 1 IN AM AND IN EVENING NOT-TAKING VENLAFAXINE HCL 50 MG TABLET 150 MG CAP ORALLY DAILY NOT-TAKING OMEPRAZOLE 20 MG CAPSULE DELAYED RELEASE 1 CAP ORALLY BID NOT-TAKING CLOBETASOL PROPIONATE 0.05 % CREAM 1 APPLICATION TO AFFECTED AREA EXTERNALLY TWICE A DAY NEEDED MEDICATION LIST REVIEWED AND RECONCILED WITH THE PATIENT PAST MEDICAL HISTORY FIBROMYALGIA CHRONIC HEADACHE DIABETES DEPRESSION PSORIATIC ARTHITIS OA DROP FOOT DDD STENOSIS 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29 LIFETIME BREAST CANCER RISK CALCULATED AT 5.9 % GENETIC MUTATION TEST NEG 2018 ASTHMA ALLERGIES CONTRAST MEDIA: RASH - ALLERGY IODINE: HIVES - ALLERGY NEOMYCIN SULFATE: RASH - ALLERGY POLYMYXIN B SULFATE: RASH - ALLERGY BEE VENOM: SWELLING - ALLERGY AMINOGLYCOSIDES: RASH - ALLERGY ASPIRIN: NAUSEA - ALLERGY IBUPROFEN: VOMITING - ALLERGY NAPROXEN: NAUSEA - ALLERGY DICLOFENAC: NAUSEA - ALLERGY GABAPENTIN: URINARY INCONTINENCE - SIDE EFFECTS APPLE (DIAGNOSTIC): SWELLING OF URETHRA/BLADDER MEMBRANES - ALLERGY NEOSPORIN: RASH - ALLERGY ENVIRONMENTAL: CONGESTION - ALLERGY ADHESIVE BANDAGES: RASH - ALLERGY SURGICAL HISTORY RECTOVAGINAL FISTULA REPAIR 1971 LAPAROSCOPY ENDOMETRIOSIS 1977 APPENDECTOMY WITH CARCINOID TYPE TUMOR 3 CM MASS REMOVED 1978 D&C LAPAROSCOPY 1981 ROSEANNA WITH OVARIAN PRESERVATION 1981 COLONOSCOPY NO POLYPS DUE 2017 2012 NECK SURGERY- DR. STREETER 05/2016 RIGHT EYE SURGERY 09/16/2017 BIOPSY LEFT EAR FAMILY HISTORY FATHER: 84 YRS, COLON CANCER IN 80'S HEART DISEASE, DIAGNOSED WITH HYPERTENSION MOTHER: 87 YRS, DM HEART DISEASE SIBLINGS: COLON CANCER BROTHER AT AGE 60'S AND MELANOMA ARM ,ANOTHER SISTER COLON CANCER AGE 61 ,DM TYPE 2, OTHER MALIGNANT NEOPLASM OF UNSPECIFIED SITE MATERNAL GRAND MOTHER: COLON CANCER COLON RESECTION PATERNAL AUNT: PANCREAS CANCER IN HER 60'S 2 BROTHER(S) , 3 SISTER(S) . GREAT PATERNAL UNCLE BLADDER CANCER. GREAT AUNT PATERNAL SIDE LUNG CANCER \NSISTER - CANCER\NBROTHER - CANCER1 BROTHER-ASTHMA, COPD,DECREASED KIDNEY FUNCTION,[id number] BROTHER -DIABETICSISTER IN W/C DUE TO SPINAL PROBLEMS. SOCIAL HISTORY GENERAL: TOBACCO USE ARE YOU A:FORMER SMOKER HOW LONG HAS IT BEEN SINCE YOU LAST SMOKED?> 10 YEARS LATEX QUESTIONNAIRE LATEX ALLERGY : HAVE YOU EVER DEVELOPED ANY TYPE OF REACTION AFTER HANDLING LATEX PRODUCTS SUCH RUBBER GLOVES, CONDOMS, DIAPHRAGMS, BALLOONS, SOCKS, OR UNDERWEAR?NO LATEX ALLERGY : HAVE YOU EVER DEVELOPED ANY TYPE OF REACTION DURING OR AFTER DENTAL APPOINTMENT, VAGINAL/RECTAL EXAMINATION, SURGICAL PROCEDURE, OR ANY OTHER EXPOSURE?NO LATEX RISK : HAVE YOU EVER HAD ANY DIFFICULTY BREATHING OR HIVES AFTER EATING OR HANDLING ANY FRUITS, OR VEGETABLES; SUCH KIWI, BANANAS, STONE FRUITS, OR CHESTNUTSNO LATEX RISK : DO YOU HAVE A PREVIOUS PERSONAL HISTORY OF MORE THAN NINE SURGERIES, SPINA BIFIDA, OR REPEATED CATHERIZATIONS? NO LATEX RISK : ARE YOU FREQUENTLY EXPOSED TO LATEX PRODUCTS IN YOUR OCCUPATION?NO DATE ASKED : 09/21/2019 BMI CARE GOAL FOLLOW-UP ABOVE NORMAL BMI FOLLOW-UPGIVING ENCOURAGEMENT TO EXERCISE ALCOHOL SCREENING DID YOU HAVE A DRINK CONTAINING ALCOHOL IN THE PAST YEAR?NO POINTS0 INTERPRETATIONNEGATIVE RECREATIONAL DRUG USE DRUG USE?NO PATIENT DENIES ABUSE OR MISSUSED OF ANY MEDICATION. CAFFEINE CAFFEINE USE?YES HOW OFTEN AND HOW MUCH? 2 CUPS COFFEE INTHE AM BOTTLE OF TEA IN THE MID MORNING HIV / HEP-C SCREENING HIV TEST OFFERED TO PATIENT:YES DATE OFFERED:02/02/2017 TEST ACCEPTED:NO HEP-C TEST OFFERED TO PATIENT:YES DATE OFFERED:02/02/2017 REASON:PATIENT DECLINED TEST ACCEPTED:NO REASON:PATIENT DECLINED [facility] [id number] OTHER [facility] LANGUAGE CHINESE. 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 DIET: REGULAR. EXERCISE: WALKS DAILY. MARITAL STATUS: . OTHERS AT HOME: SPOUSE. PAIN CLINIC PFS, CLERGY, PUBLIC HEALTH REFERRALS PFS REFERRAL NEEDED?NO CLERGY REFERRAL NEEDED?NO PUBLIC HEALTH REFERRAL NEEDED?NO HAS THE PATIENT BEEN EDUCATED REGARDING HIS/HER PLAN OF CARE?YES HAS THE PATIENT BEEN EDUCATED REGARDING PAIN, THE RISK FOR PAIN, THE IMPORTANCE OF EFFECTIVE PAIN MANAGEMENT, AND THE PAIN ASSESSMENT PROCESS?YES ADVANCE DIRECTIVE ADVANCE DIRECTIVE DISCUSSED WITH PATIENT:YES 09/21/19 PATIENT DOES NOT HAVE ANY ADVANCED DIRECTIVES AND SHE DECLINES HCP INFORMATION AND ASSISTANCE AT THIS TIME. HOSPITALIZATION/MAJOR DIAGNOSTIC PROCEDURE SURGERIES CHILD REVIEW OF SYSTEMS CONSTITUTIONAL: ANY RECENT FEVER NO . CHILLS NO . WEIGHT CHANGE OF UNKNOWN REASONS NO . GASTROENTEROLOGY: NEW UNEXPLAINABLE CHANGES IN BOWEL CONTROL NO . CONSTIPATION NO . GENITOURINARY: ANY NEW CHANGE IN BLADDER CONTROL? NO . NEUROLOGY: NEW ONSET DIZZINESS OR NEUROLOGICAL CHANGES NOT MENTIONED NO . NEW NUMBNESS OR PAIN PATTERNS NOT MENTIONED AND PERTINENT TO TODAY'S VISIT NO . CARDIOLOGY: NEW CHEST PRESSURE NO . NEW CHEST PAIN NO . RESPIRATORY: UNEXPLAINABLE COUGH NO . NEW SHORTNESS OF BREATH NO . VITAL SIGNS WT 188.4 LBS, HT 61.5 IN, BMI 35.02 INDEX, BP 136/62 MM HG, HR 95 /MIN, RR 18 /MIN, TEMP 98.2 F, OXYGEN SAT % 96%, SAFE IN ENV? (Y/N) Y, NA INITIALS OH 10:17, REVIEWED BY: TU. EXAMINATION GENERAL EXAMINATION: GENERALAWAKE,ALERT ,PLEASANT . PSYCHAFFECT NORMAL . LUNGS:LUNG HUBBARD ARE CLEAR TO AUSCULTATION BILATERALLY. GOOD MOVEMENT OF AIR . HEART:S1, S2 IN A REGULAR RATE AND RHYTHM. NO SIGNIFICANT MURMURS, RUBS OR GALLOPS NOTED . ASSESSMENTS PSORIATIC ARTHRITIS - L40.50 (PRIMARY) INFLAMMATORY ARTHROPATHY - M19.90 TREATMENT PSORIATIC ARTHRITIS CONTINUE CYMBALTA CAPSULE DELAYED RELEASE PARTICLES, 60 MG, 1 CAPSULE, ORALLY, ONCE A DAY CONTINUE TRAMADOL HCL TABLET, 50 MG, 1 TAB, ORALLY, Q6H PRN PAIN MDD4 NOTES: ISTOP REGISTRY REVIEWED AND DEMONSTRATES COMPLLIANCE. RECENT URINE TOXICOLOGY REVIEWED. WNL. URINE TOXICOLOGY TODAY , RISKS OF NARCOTIC/OPIOD MEDICATIONS INCLUDES BUT IS NOT LIMITED TO RISK OF DEPENDANCE/DEVELOPMENT OF ADDICTION, MOOD DISTURBANCE AND DEPRESSION, OSTEOPOROSIS, HORMONAL AND LABIDAL CHANGES, RESPIRATORY DEPRESSION AND . PATIENT IS ADVISED NOT TO DRIVE OR DRINK ALCOHOL WHILE ON THESE MEDICATIONS ADVISED PATIENT TO INCREASED TRAMADOL TO 2 TABLETS AT NIGHT. CONTINUE MAXIMUM DAILY DOSE OF 4 TRAMADOL PER DAY. CONTINUE CYMBALTA. FOLLOW-UP IS SCHEDULED IN 2 MONTHS. PROCEDURE CODES FA211 ESTABILISHED PATIENT [facility] CHARGE DISPOSITION & COMMUNICATION FOLLOW UP 2 MONTHS (REASON: INFLAMMATORY ARTHROPATHY/MED MANAGEMENT) ELECTRONICALLY SIGNED BY ANGELICA LIZARRAGA ON 09/23/2019 AT 09:01 AM EDT DISCLAIMER : THIS IS A VISIT SUMMARY EXTRACTED FROM THE [employer] CHART. IT IS NOT A COPY OF THE [employer] PROGRESS NOTE. JIAN
== END ==
LOC: M PAIN 10:00
PROVIDERS: ATTEND Nurse Practitioner Family
DX: L40.50 Arthropathic psoriasis, unspecified (principal); M19.90 Unspecified osteoarthritis, unspecified site

== ENCOUNTER → 2019-11-22 | Outpatient (CLI) | payer MEDICARE | LOC: M PAIN 10:55 | PROVIDERS: ATTEND Nurse Practitioner Family | DX: M47.816 Spondylosis without myelopathy or radiculopathy, lumbar region (principal); Z79.891 Long term (current) use of opiate analgesic | CPT/HCPCS: G0463 ×2 ==

== ENCOUNTER → 2019-12-20 | Outpatient (CLI) | payer MEDICARE ==
[2019-12-20 14:37] LABS: BASO # 0.1 10^3/uL (0.0-0.2); BASO % 0.6 % (0.0-1.0); EOS # 0.2 10^3/uL (0.0-0.5); EOS % 1.7 % (0.0-3.0); HEMATOCRIT 36.9 % (36.0-47.0); HEMOGLOBIN 12.1 g/dl (12.0-15.5); LYMPH # 3.9 10^3/uL (1.5-5.0); LYMPH % 41.7 % (24.0-44.0); MEAN CORPUSCULAR HEMOGLOBIN 29.4 pg (27.0-33.0); MEAN CORPUSCULAR HGB CONC 32.8 g/dl (32.0-36.5); MEAN CORPUSCULAR VOLUME 89.6 fl (80.0-96.0); MONO # 0.8 10^3/uL (0.0-0.8); MONO % 8.4 % (0.0-5.0); NEUTROPHILS # 4.4 10^3/uL (1.5-8.5); NEUTROPHILS % 47.2 % (36.0-66.0); PLATELET COUNT, AUTOMATED 193 10^3/uL (150-450); RED BLOOD COUNT 4.12 10^6/uL (4.00-5.40); WHITE BLOOD COUNT 9.3 10^3/uL (4.0-10.0)
[2019-12-20 15:10] LABS: ALT/SGPT 50 U/L (12-78); C REACTIVE PROTEIN QUANTITATIV 0.76 MG/DL (0.00-0.30); CREATININE FOR GFR 0.75 MG/DL (0.55-1.30); GLOMERULAR FILTRATION RATE > 60.0 (>45)
[2019-12-20 15:34] LABS: ERYTHROCYTE SEDIMENTATION RATE 33 mm/hr (0-30)
== END ==
LOC: M LAB 13:50
PROVIDERS: ATTEND Internal Medicine Rheumatology
DX: L40.59 Other psoriatic arthropathy (principal); Z79.899 Other long term (current) drug therapy

== ENCOUNTER → 2020-01-23 | Outpatient (REF) | payer MEDICARE | LOC: M SFHCWAGY 13:23 | PROVIDERS: ATTEND Nurse Practitioner Family | DX: Z12.72 Encounter for screening for malignant neoplasm of vagina (principal); N95.2 Postmenopausal atrophic vaginitis ==

== ENCOUNTER → 2020-01-23 | Outpatient (CLI) | payer MEDICARE ==
--- NOTE | 2020-01-23 12:06 | REPMRS ---
Patient History The patient states she had a clinical breast exam in 01/2020. Patient has history of colorectal cancer at age 28. Family history of colorectal cancer at age 50 or over in father, colorectal cancer at age 50 or over in maternal grandmother, colorectal cancer at age 50 or over in paternal grandmother, colorectal cancer at age 50 or over in sister, colorectal cancer at age 50 or over in brother, pancreatic cancer at age 50 or over in paternal aunt. Took estrogen for 15 years. 3D TOMOSYNTHESIS WAS PERFORMED. [facility] lifetime risk for breast cancer is 4.5%. [facility] breast density b. Digital Woman Screen Mammo: January 23, 2020 - Exam #: [id number] Bilateral CC and MLO view(s) were taken. Technologist: Zofia Blanchard, Technologist Prior study comparison: January 19, 2019, bilateral digital woman screen mammo performed at [facility]. February 03, 2018, bilateral digital woman screen mammo performed at [facility]. FINDINGS: There are scattered fibroglandular densities. There has been no change in the appearance of the mammogram from the prior studies. There is a mild amount of residual fibroglandular tissue which is fairly symmetric. There is no interval development of dominant mass, architectural distortion, or clustered microcalcification suggestive of malignancy. Assessment: BI-RADS/ACR category 1 mammogram. Negative Mammogram. Recommendation Routine screening mammogram in 1 year (for women over age 40). This mammogram was interpreted with the aid of an FDA-approved computer-aided dectection system. Electronically Signed By: Octavio Ashby MD 01/23/20 [id number]
== END ==
LOC: M WHC 10:34
PROVIDERS: ATTEND Nurse Practitioner Family
DX: Z01.419 Encounter for gynecological examination (general) (routine) without abnormal findings (principal); Z12.31 Encounter for screening mammogram for malignant neoplasm of breast; Z85.038 Personal history of other malignant neoplasm of large intestine; Z80.0 Family history of malignant neoplasm of digestive organs; Z92.23 Personal history of estrogen therapy
CPT/HCPCS: 77063; 77067; G0101; G0123

== ENCOUNTER → 2020-02-21 | Outpatient (CLI) | payer MEDICARE ==
--- NOTE | 2020-02-23 03:49 | ECWPNPC ---
PATIENT NAME: MITESH MADRID : 1950 GENDER: FEMALE VISIT DATE: 02/21/2020 DISCHARGE DATE: 02/21/20 1114 VISIT LOCKED DATE TIME: PHYSICIAN: FRANCES LUCIA RESOURCE: FRANCES LUCIA REASON FOR APPOINTMENT 1. MED MANAGEMENT/ CHRONIC BACK PAIN HISTORY OF PRESENT ILLNESS DEPRESSION SCREENING: PHQ-9 LITTLE INTEREST OR PLEASURE IN DOING THINGSSEVERAL DAYS FEELING DOWN, DEPRESSED, OR HOPELESSSEVERAL DAYS TROUBLE FALLING OR STAYING ASLEEP, OR SLEEPING TOO MUCHMORE THAN HALF THE DAYS FEELING TIRED OR HAVING LITTLE ENERGYMORE THAN HALF THE DAYS POOR APPETITE OR OVEREATING MORE THAN HALF THE DAYS FEELING BAD ABOUT YOURSELF-OR THAT YOU ARE A FAILURE OR HAVE LET YOURSELF OR YOUR FAMILY DOWN MORE THAN HALF THE DAYS TROUBLE CONCENTRATING ON THINGS, SUCH READING THE NEWSPAPER OR WATCHING TELEVISION SEVERAL DAYS MOVING OR SPEAKING SO SLOWLY THAT OTHER PEOPLE COULD HAVE NOTICED. OR THE OPPOSITE- BEING SO FIDGETY OR RESTLESS THAT YOU HAVE BEEN MOVING AROUND A LOT MORE THAN USUALSEVERAL DAYS THOUGHTS THAT YOU WOULD BE BETTER OFF , OR OF HURTING YOURSELF IN SOME WAY?NOT AT ALL TOTAL SCORE:12 INTERPRETATIONMODERATE DEPRESSION PHQ-2 (2015 EDITION) LITTLE INTEREST OR PLEASURE IN DOING THINGS?SEVERAL DAYS FEELING DOWN, DEPRESSED, OR HOPELESS?SEVERAL DAYS TOTAL SCORE2 GENERAL: HERE FOR MEDICINE MANAGEMENT OF CHRONIC BACK PAIN. FINDS CURRENT CHRONIC PAIN MEDICATION EFFECTIVE AT REDUCING PAIN AND KEEPING HER FUNCTIONAL. DENIES ADVERSE SIDE EFFECTS OF MEDICATION. -. FALL RISK SCREENING: SCREENING :ONE FALL WITHOUT INJURY IN THE PAST YEAR SLIPPED ON ICE LAST MAR PAIN SCREENING: PATIENT HAS A COMPLAINT OF ACUTE OR CHRONIC PAIN :YES LOCATION OF PAIN:NECK, BOTH SHOULDERS, UPPER BACK, MID BACK, LOW BACK, RIGHT HIP INTENSITY OF PAIN (SCALE OF 1 TO 10):3 AVERAGE 3-4 WHAT DOES YOUR PAIN FEEL LIKE:ACHING, CONTINOUS, TENDER, THROBBING, SORE, SHOOTING SOMETIMES DOWN RIGHT LEG DURATION:CONTINOUS, CONSTANT DOESN'T SLEEP WELL PAIN IS INCREASED BY:ACTIVITIES, PROLONGED STANDING PAIN IS DECREASED BY:USE OF PAIN MEDICATIONS, OTHERS MOVING AROUND PAIN HAS INTERFERED WITH THE FOLLOWING: EVERYTHING NURSING NOTE: PT STATES THE ANSWERS TO THE PHQ2 SHOULD BE OCCASSIONAL DAYS NOT SEVERAL BUT THAT WASN'T AN OPTION. SHE GOES TO COUNSELING Q 3 WEEKS. PAIN CENTER INTAKE QUESTIONS: DO YOU HAVE A HISTORY OF MRSA? :NO DO YOU TAKE A BLOOD THINNERS? :NO DO YOU HAVE ANY BLEEDING DISORDERS? :NO ANY NEW NUMBNESS OR WEAKNESS IN YOUR LEGS OR ARMS? :NO ANY PACEMAKER,DEFIBRILLATOR, OR DORSAL COLUMN STIMULATOR? :NO DO YOU HAVE ANY RASHES OR OPEN SORES? :YES PSORIOSIS ARE YOU ALLERGIC TO IV DYE? :NO ARE YOU DIABETIC? :YES ANY NEW PROBLEMS WITH YOUR MEDICATIONS? :NO HAVE YOU RECEIVED A VACCINE IN THE PAST 30 DAYS? :NO DO YOU PLAN TO RECEIVE A VACCINE IN THE NEXT 21 DAYS? :NO DO YOU NEED ANY PRESCRIPTION? : NOT SURE DO YOU TAKE ANY IMMUNOSUPPRESSIVE MEDICATIONS? :YES ORENCIA, LEFLUNOMIDE, TRIAMCINOLONE CREAM IS THERE A CHANCE YOU COULD BE ? :NO ARE YOU BREAST FEEDING? :NO CURRENT MEDICATIONS TAKING ACETAMINOPHEN 500 MG TABLET 1500MG ORALLY 1 TAB AM, 1 AT 3PM, 1 TAB AT BEDTIME TAKING ATORVASTATIN CALCIUM 40 MG TABLET 1 TABLET ORALLY ONCE A DAY TAKING BUSPIRONE HCL 30 MG TABLET 1 TABLET ORALLY DAILY TAKING BIOTIN 5000 5 MG CAPSULE 3 CAPSULE ORALLY ONCE A DAY TAKING CALCIUM 500 MG TABLET 2 TABS ORALLY 666MG DAILY TAKING FISH OIL 1500 MG CAPSULE 1 CAPSULE ORALLY ONCE A DAY TAKING LEFLUNOMIDE 20 MG TABLET 1 TABLET ORALLY MON. /THU. /THU. TAKING LORATADINE 10 MG TABLET 1 TABLET ORALLY ONCE A DAY TAKING METFORMIN HCL 500 MG TABLET ORALLY DAILY TAKING MULTI-VITAMIN TABLET 1 TABLET ORALLY ONCE A DAY TAKING POTASSIUM CHLORIDE 10 MEQ CAPSULE EXTENDED RELEASE MCG ORALLY TAKE ON DAYS THAT TAKE TORSEMIDE TAKING RELPAX 40 MG TABLET 1 TABLET NEEDED ONE TIME ORALLY ONCE A DAY PRN TAKING TORSEMIDE 10 MG TABLET 1 TABLET ORALLY ON 3 DAYS, OFF 3 DAYS PRN EDEMA TAKING VITAMIN D 2000 UNIT TABLET 1 TABLET ORALLY ONCE A DAY TAKING VENTOLIN HFA 108 (90 BASE) MCG/ACT AEROSOL SOLUTION 2 PUFFS NEEDED INHALATION EVERY 6 HRS TAKING PROTONIX 40 MG TABLET DELAYED RELEASE 1 TABLET ORALLY ONCE A DAY TAKING FERROUS GLUCONATE 225 (27 FE) MG TABLET 1 TABLET ORALLY EVERY OTHER DAY TAKING GLUCOSAMINE CHOND COMPLEX/MSM - TABLET 2 TABLETS ORALLY DAILY TAKING PROBIOTIC CAPSULE ORALLY DAILY TAKING EMLA 2.5-2.5 % CREAM ONE APPLICATION EXTERNALLY PRN TAKING ARMONAIR RESPICLICK 113 113 MCG/ACT AEROSOL POWDER BREATH ACTIVATED 1 PUFF INHALATION TWICE A DAY TAKING FAMOTIDINE 40 MG TABLET 1 TABLET AT BEDTIME ORALLY ONCE A DAY TAKING ORENCIA 50 MG/0.4ML SOLUTION PREFILLED SYRINGE DIRECTED SUBCUTANEOUS Q 4 WEEKS TAKING OXYBUTYNIN CHLORIDE 5 MG TABLET 1.5 TABS ORALLY TWICE DAILY TAKING TRAMADOL HCL 50 MG TABLET 1 TAB ORALLY Q6H PRN PAIN MDD4 TAKING CYMBALTA 60 MG CAPSULE DELAYED RELEASE PARTICLES 1 CAPSULE ORALLY ONCE A DAY TAKING TRIAMCINOLONE ACETONIDE 0.5 % CREAM 1 APPLICATION EXTERNALLY TWICE DAILY TAKING PANTOPRAZOLE SODIUM 40 MG TABLET DELAYED RELEASE 1 TABLET ORALLY ONCE A DAY NOT-TAKING SIMPONI ARIA 50 MG/4ML SOLUTION DIRECTED INTRAVENOUS NOT-TAKING REMICADE 100 MG SOLUTION RECONSTITUTED INTRAVENOUS 700MG EVERY 5 WKS NOT-TAKING RANITIDINE HCL 150 MG CAPSULE 1 CAPSULE AT BEDTIME ORALLY ONCE A DAY NOT-TAKING EZETIMIBE 10 MG TABLET 1 TABLET ORALLY ONCE A DAY NOT-TAKING TOPIRAMATE 100 MG TABLET 1 TABLET IN AM ORALLY IN AM NOT-TAKING TOPIRAMATE 150 MG TABLET 1 TABLET ORALLY AT BEDTIME NOT-TAKING CALCIPOTRIENE 0.005 % OINTMENT 1 APPLICATION TO AFFECTED AREA EXTERNALLY ONCE A DAY NOT-TAKING FLUTICASONE PROPIONATE HFA 110 MCG/ACT AEROSOL 1 PUFF INHALATION TWICE A DAY NOT-TAKING PREDNISONE TAPER 1 TAB ORAL NOT-TAKING GLUCOSAMINE SULFATE 500 MG TABLET 1 TABLET WITH A MEAL ORALLY ONCE A DAY NOT-TAKING REQUIP 0.5 MG TABLET 2 HOURS BEFORE BEDTIME ORALLY ONCE A DAY NOT-TAKING TOPIRAMATE 100 MG TABLET 1 TABLET ORALLY 1 IN AM AND IN EVENING NOT-TAKING VENLAFAXINE HCL 50 MG TABLET 150 MG CAP ORALLY DAILY NOT-TAKING OMEPRAZOLE 20 MG CAPSULE DELAYED RELEASE 1 CAP ORALLY BID NOT-TAKING CLOBETASOL PROPIONATE 0.05 % CREAM 1 APPLICATION TO AFFECTED AREA EXTERNALLY TWICE A DAY NEEDED MEDICATION LIST REVIEWED AND RECONCILED WITH THE PATIENT PAST MEDICAL HISTORY FIBROMYALGIA CHRONIC HEADACHE DIABETES DEPRESSION PSORIATIC ARTHITIS OA DROP FOOT DDD STENOSIS 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29 LIFETIME BREAST CANCER RISK CALCULATED AT 5.9 % GENETIC MUTATION TEST NEG 2018 ASTHMA BILATERAL SHOULDER PAIN RADIATING DOWN BOTH ARMS ALLERGIES CONTRAST MEDIA: RASH - ALLERGY IODINE: HIVES - ALLERGY NEOMYCIN SULFATE: RASH - ALLERGY POLYMYXIN B SULFATE: RASH - ALLERGY BEE VENOM: SWELLING - ALLERGY AMINOGLYCOSIDES: RASH - ALLERGY ASPIRIN: NAUSEA - ALLERGY IBUPROFEN: VOMITING - ALLERGY NAPROXEN: NAUSEA - ALLERGY DICLOFENAC: NAUSEA - ALLERGY GABAPENTIN: URINARY INCONTINENCE - SIDE EFFECTS APPLE (DIAGNOSTIC): SWELLING OF URETHRA/BLADDER MEMBRANES - ALLERGY NEOSPORIN: RASH - ALLERGY ENVIRONMENTAL: CONGESTION - ALLERGY ADHESIVE BANDAGES: RASH - ALLERGY SURGICAL HISTORY RECTOVAGINAL FISTULA REPAIR 1971 LAPAROSCOPY ENDOMETRIOSIS 1977 APPENDECTOMY WITH CARCINOID TYPE TUMOR 3 CM MASS REMOVED 1978 D&C LAPAROSCOPY 1981 ROSEANNA WITH OVARIAN PRESERVATION 1981 COLONOSCOPY 2018 2012 NECK SURGERY- DR. STREETER 05/2016 RIGHT EYE SURGERY 09/16/2017 BIOPSY LEFT EAR COLONOSCOPY 2018 BILATERAL CATARACT SUGERGY X 2 EACH FAMILY HISTORY FATHER: 84 YRS, COLON CANCER IN 80'S HEART DISEASE, DIAGNOSED WITH HYPERTENSION MOTHER: 87 YRS, DM HEART DISEASE SIBLINGS: COLON CANCER BROTHER AT AGE 60'S AND MELANOMA ARM ,ANOTHER SISTER COLON CANCER AGE 61 ,DM TYPE 2, OTHER MALIGNANT NEOPLASM OF UNSPECIFIED SITE MATERNAL GRAND MOTHER: COLON CANCER COLON RESECTION PATERNAL AUNT: PANCREAS CANCER IN HER 60'S 2 BROTHER(S) , 3 SISTER(S) . GREAT PATERNAL UNCLE BLADDER CANCER. GREAT AUNT PATERNAL SIDE LUNG CANCER \NSISTER - CANCER\NBROTHER - CANCER1 BROTHER-ASTHMA, COPD,DECREASED KIDNEY FUNCTION,[id number] BROTHER -DIABETICSISTER IN W/C DUE TO SPINAL PROBLEMSYOUNGEST SISTER-TRIPLE BYPASS DUE TO HEART PROBLEMS. SOCIAL HISTORY GENERAL: TOBACCO USE ARE YOU A:FORMER SMOKER HOW LONG HAS IT BEEN SINCE YOU LAST SMOKED?> 10 YEARS LATEX QUESTIONNAIRE LATEX ALLERGY : HAVE YOU EVER DEVELOPED ANY TYPE OF REACTION AFTER HANDLING LATEX PRODUCTS SUCH RUBBER GLOVES, CONDOMS, DIAPHRAGMS, BALLOONS, SOCKS, OR UNDERWEAR?NO LATEX ALLERGY : HAVE YOU EVER DEVELOPED ANY TYPE OF REACTION DURING OR AFTER DENTAL APPOINTMENT, VAGINAL/RECTAL EXAMINATION, SURGICAL PROCEDURE, OR ANY OTHER EXPOSURE?NO LATEX RISK : HAVE YOU EVER HAD ANY DIFFICULTY BREATHING OR HIVES AFTER EATING OR HANDLING ANY FRUITS, OR VEGETABLES; SUCH KIWI, BANANAS, STONE FRUITS, OR CHESTNUTSNO LATEX RISK : DO YOU HAVE A PREVIOUS PERSONAL HISTORY OF MORE THAN NINE SURGERIES, SPINA BIFIDA, OR REPEATED CATHERIZATIONS? NO LATEX RISK : ARE YOU FREQUENTLY EXPOSED TO LATEX PRODUCTS IN YOUR OCCUPATION?NO DATE ASKED : 02/21/2020 BMI CARE GOAL FOLLOW-UP ABOVE NORMAL BMI FOLLOW-UPGIVING ENCOURAGEMENT TO EXERCISE ALCOHOL SCREENING DID YOU HAVE A DRINK CONTAINING ALCOHOL IN THE PAST YEAR?NO POINTS0 INTERPRETATIONNEGATIVE RECREATIONAL DRUG USE DRUG USE?NO PATIENT DENIES ABUSE OR MISSUSED OF ANY MEDICATION. CAFFEINE CAFFEINE USE?YES HOW OFTEN AND HOW MUCH? 2 CUPS COFFEE INTHE AM BOTTLE OF TEA IN THE MID MORNING HIV / HEP-C SCREENING HIV TEST OFFERED TO PATIENT:YES DATE OFFERED:02/02/2017 TEST ACCEPTED:NO HEP-C TEST OFFERED TO PATIENT:YES DATE OFFERED:02/02/2017 REASON:PATIENT DECLINED TEST ACCEPTED:NO REASON:PATIENT DECLINED SABIANISM [id number] OTHER [facility] LANGUAGE BELARUSIAN. 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 DIET: REGULAR. EXERCISE: WALKS DAILY. MARITAL STATUS: . OTHERS AT HOME: SPOUSE. PAIN CLINIC PFS, CLERGY, PUBLIC HEALTH REFERRALS PFS REFERRAL NEEDED?NO CLERGY REFERRAL NEEDED?NO PUBLIC HEALTH REFERRAL NEEDED?NO HAS THE PATIENT BEEN EDUCATED REGARDING HIS/HER PLAN OF CARE?YES HAS THE PATIENT BEEN EDUCATED REGARDING PAIN, THE RISK FOR PAIN, THE IMPORTANCE OF EFFECTIVE PAIN MANAGEMENT, AND THE PAIN ASSESSMENT PROCESS?YES ADVANCE DIRECTIVE ADVANCE DIRECTIVE DISCUSSED WITH PATIENT:YES 02/21/20 PATIENT DOES NOT HAVE ANY ADVANCED DIRECTIVES AND SHE DECLINES HCP INFORMATION AND ASSISTANCE AT THIS TIME. HOSPITALIZATION/MAJOR DIAGNOSTIC PROCEDURE SURGERIES CHILD REVIEW OF SYSTEMS CONSTITUTIONAL: ANY RECENT FEVER NO . CHILLS NO . WEIGHT CHANGE OF UNKNOWN REASONS NO . GASTROENTEROLOGY: NEW UNEXPLAINABLE CHANGES IN BOWEL CONTROL NO . CONSTIPATION NO . GENITOURINARY: ANY NEW CHANGE IN BLADDER CONTROL? NO . NEUROLOGY: NEW ONSET DIZZINESS OR NEUROLOGICAL CHANGES NOT MENTIONED NO . NEW NUMBNESS OR PAIN PATTERNS NOT MENTIONED AND PERTINENT TO TODAY'S VISIT NO . CARDIOLOGY: NEW CHEST PRESSURE NO . NEW CHEST PAIN NO . RESPIRATORY: UNEXPLAINABLE COUGH NO . NEW SHORTNESS OF BREATH NO . VITAL SIGNS WT 188.2 LBS, HT 61.5 IN, BMI 34.98 INDEX, BP 137/63 MM HG, HR 95 /MIN, RR 18 /MIN, TEMP 97.6 F, OXYGEN SAT % 96%, NA INITIALS SC 10:25. EXAMINATION GENERAL EXAMINATION: GENERALAWAKE,ALERT ,PLEASANT . PSYCHAFFECT NORMAL . LUNGS:LUNG HUBBARD ARE CLEAR TO AUSCULTATION BILATERALLY. GOOD MOVEMENT OF AIR . HEART:S1, S2 IN A REGULAR RATE AND RHYTHM. NO SIGNIFICANT MURMURS, RUBS OR GALLOPS NOTED . ASSESSMENTS PSORIATIC ARTHRITIS - L40.50 (PRIMARY) INFLAMMATORY ARTHROPATHY - M19.90 TREATMENT PSORIATIC ARTHRITIS CONTINUE TRAMADOL HCL TABLET, 50 MG, 1 TAB, ORALLY, Q6H PRN PAIN MDD4 CONTINUE CYMBALTA CAPSULE DELAYED RELEASE PARTICLES, 60 MG, 1 CAPSULE, ORALLY, ONCE A DAY PROCEDURE CODES FA211 ESTABILISHED PATIENT [facility] CHARGE DISPOSITION & COMMUNICATION FOLLOW UP 3 MONTHS (REASON: MED MGMNT/NECK/LBP) ELECTRONICALLY SIGNED BY ANGELICA LIZARRAGA ON 02/22/2020 AT 02:19 PM EST DISCLAIMER : THIS IS A VISIT SUMMARY EXTRACTED FROM THE [employer] CHART. IT IS NOT A COPY OF THE [employer] PROGRESS NOTE. MTDD
== END ==
LOC: M PAIN 10:00
PROVIDERS: ATTEND Nurse Practitioner Family
DX: L40.50 Arthropathic psoriasis, unspecified (principal); M19.90 Unspecified osteoarthritis, unspecified site; M79.7 Fibromyalgia; R51.9 Headache, unspecified; E11.9 Type 2 diabetes mellitus without complications; F32.9 Major depressive disorder, single episode, unspecified; J45.909 Unspecified asthma, uncomplicated; Z87.891 Personal history of nicotine dependence; Z91.041 Radiographic dye allergy status; Z88.1 Allergy status to other antibiotic agents; Z88.8 Allergy status to other drugs, medicaments and biological substances; Z91.030 Bee allergy status; Z88.6 Allergy status to analgesic agent; Z91.018 Allergy to other foods
CPT/HCPCS: G0463 ×2

== ENCOUNTER → 2020-04-09 | Outpatient (CLI) | payer MEDICARE ==
--- NOTE | 2020-04-09 10:54 | REP ---
INDICATION: LUNG SCREENING COMPARISON: 04/04/2019, 04/01/2018 TECHNIQUE: Axial noncontrast images from the thoracic inlet to the upper abdomen using low-dose lung screening technique (LDCT). FINDINGS: Chronic age-related interstitial changes are appreciated including right apical scarring with small nodular densities unchanged from prior examinations. No consolidation, new suspicious nodule or mass. No effusion. No pneumothorax. Tracheobronchial tree is patent. IMPRESSION: Lung-RADS category 2. Stable nodular scarring in the right apex. Management recommendations include annual low-dose CT surveillance. <Electronically signed by Eitan Leon > 04/09/20 105
== END ==
LOC: M RAD 09:56
PROVIDERS: ATTEND Nurse Practitioner Adult Health
DX: Z12.2 Encounter for screening for malignant neoplasm of respiratory organs (principal); Z87.891 Personal history of nicotine dependence; J84.9 Interstitial pulmonary disease, unspecified

== ENCOUNTER → 2020-05-21 | Outpatient (CLI) | payer MEDICARE ==
--- NOTE | 2020-05-23 07:06 | ECWPNPC ---
PATIENT NAME: MITESH MADRID : 1950 GENDER: FEMALE VISIT DATE: 05/21/2020 DISCHARGE DATE: 05/21/20 1056 VISIT LOCKED DATE TIME: PHYSICIAN: FRANCES LUCIA RESOURCE: FRANCES LUCIA REASON FOR APPOINTMENT 1. MED MGMNT/NECK/LBP HISTORY OF PRESENT ILLNESS GENERAL: HERE FOR FOLLOW-UP OF CHRONIC NECK AND LOW BACK PAIN. OVERALL FEELS CURRENT MEDICATIONS HELPFUL AT REDUCING PAIN AND KEEPING HER COMFORTABLE. DENIES ADVERSE SIDE EFFECTS. -. FALL RISK SCREENING: SCREENING : NO FALLS REPORTED IN THE LAST YEAR. PAIN SCREENING: PATIENT HAS A COMPLAINT OF ACUTE OR CHRONIC PAIN :YES LOCATION OF PAIN:NECK, LOW BACK GOES DOWN RIGHT HIP AND LEG INTENSITY OF PAIN (SCALE OF 1 TO 10):2 WHAT DOES YOUR PAIN FEEL LIKE:ACHING, CONTINOUS, SORE DURATION:CONTINOUS, CONSTANT, ALL DAY PAIN IS INCREASED BY:ACTIVITIES PAIN IS DECREASED BY:USE OF PAIN MEDICATIONS NURSING NOTE: -. PAIN CENTER INTAKE QUESTIONS: DO YOU HAVE A HISTORY OF MRSA? :NO DO YOU TAKE A BLOOD THINNERS? :NO DO YOU HAVE ANY BLEEDING DISORDERS? :NO ANY NEW NUMBNESS OR WEAKNESS IN YOUR LEGS OR ARMS? :NO ANY PACEMAKER,DEFIBRILLATOR, OR DORSAL COLUMN STIMULATOR? :NO DO YOU HAVE ANY RASHES OR OPEN SORES? :YES PSORIOSIS ARE YOU ALLERGIC TO IV DYE? :NO ARE YOU DIABETIC? :YES ANY NEW PROBLEMS WITH YOUR MEDICATIONS? :NO HAVE YOU RECEIVED A VACCINE IN THE PAST 30 DAYS? :NO DO YOU PLAN TO RECEIVE A VACCINE IN THE NEXT 21 DAYS? :NO DO YOU NEED ANY PRESCRIPTION? : NOT SURE DO YOU TAKE ANY IMMUNOSUPPRESSIVE MEDICATIONS? :YES ORENCIA, LEFLUNOMIDE, TRIAMCINOLONE CREAM IS THERE A CHANCE YOU COULD BE ? :NO ARE YOU BREAST FEEDING? :NO CURRENT MEDICATIONS TAKING ATORVASTATIN CALCIUM 40 MG TABLET 1 TABLET ORALLY ONCE A DAY TAKING BUSPIRONE HCL 30 MG TABLET 1 TABLET ORALLY DAILY TAKING BIOTIN 5000 5 MG CAPSULE 3 CAPSULE ORALLY ONCE A DAY TAKING CALCIUM 500 MG TABLET 2 TABS ORALLY 666MG DAILY TAKING FISH OIL 1500 MG CAPSULE 1 CAPSULE ORALLY ONCE A DAY TAKING LEFLUNOMIDE 20 MG TABLET 1 TABLET ORALLY DAILY TAKING LORATADINE 10 MG TABLET 1 TABLET ORALLY ONCE A DAY TAKING METFORMIN HCL 500 MG TABLET ORALLY DAILY TAKING MULTI-VITAMIN TABLET 1 TABLET ORALLY ONCE A DAY TAKING POTASSIUM CHLORIDE 10 MEQ CAPSULE EXTENDED RELEASE MCG ORALLY TAKE ON DAYS THAT TAKE TORSEMIDE TAKING RELPAX 40 MG TABLET 1 TABLET NEEDED ONE TIME ORALLY ONCE A DAY PRN TAKING TORSEMIDE 10 MG TABLET 1 TABLET ORALLY ON 3 DAYS, OFF 3 DAYS PRN EDEMA TAKING VITAMIN D 2000 UNIT TABLET 1 TABLET ORALLY ONCE A DAY TAKING VENTOLIN HFA 108 (90 BASE) MCG/ACT AEROSOL SOLUTION 2 PUFFS NEEDED INHALATION EVERY 6 HRS TAKING PROTONIX 40 MG TABLET DELAYED RELEASE 1 TABLET ORALLY ONCE A DAY TAKING FERROUS GLUCONATE 225 (27 FE) MG TABLET 1 TABLET ORALLY EVERY OTHER DAY TAKING GLUCOSAMINE CHOND COMPLEX/MSM - TABLET 2 TABLETS ORALLY DAILY TAKING PROBIOTIC CAPSULE ORALLY DAILY TAKING EMLA 2.5-2.5 % CREAM ONE APPLICATION EXTERNALLY PRN TAKING ARMONAIR RESPICLICK 113 113 MCG/ACT AEROSOL POWDER BREATH ACTIVATED 1 PUFF INHALATION TWICE A DAY TAKING FAMOTIDINE 40 MG TABLET 1 TABLET AT BEDTIME ORALLY ONCE A DAY TAKING ORENCIA 50 MG/0.4ML SOLUTION PREFILLED SYRINGE DIRECTED SUBCUTANEOUS Q 4 WEEKS TAKING OXYBUTYNIN CHLORIDE 5 MG TABLET 1.5 TABS ORALLY TWICE DAILY TAKING TRIAMCINOLONE ACETONIDE 0.5 % CREAM 1 APPLICATION EXTERNALLY TWICE DAILY TAKING PANTOPRAZOLE SODIUM 40 MG TABLET DELAYED RELEASE 1 TABLET ORALLY ONCE A DAY TAKING TRAMADOL HCL 50 MG TABLET 1 TAB ORALLY Q6H PRN PAIN MDD4 TAKING CYMBALTA 60 MG CAPSULE DELAYED RELEASE PARTICLES 1 CAPSULE ORALLY ONCE A DAY TAKING ORENCIA 250 MG SOLUTION RECONSTITUTED DIRECTED INTRAVENOUS ONCE EVERY 4 WEEKS NOT-TAKING ACETAMINOPHEN 500 MG TABLET 1500MG ORALLY 1 TAB AM, 1 AT 3PM, 1 TAB AT BEDTIME NOT-TAKING SIMPONI ARIA 50 MG/4ML SOLUTION DIRECTED INTRAVENOUS NOT-TAKING REMICADE 100 MG SOLUTION RECONSTITUTED INTRAVENOUS 700MG EVERY 5 WKS NOT-TAKING RANITIDINE HCL 150 MG CAPSULE 1 CAPSULE AT BEDTIME ORALLY ONCE A DAY NOT-TAKING EZETIMIBE 10 MG TABLET 1 TABLET ORALLY ONCE A DAY NOT-TAKING TOPIRAMATE 100 MG TABLET 1 TABLET IN AM ORALLY IN AM NOT-TAKING TOPIRAMATE 150 MG TABLET 1 TABLET ORALLY AT BEDTIME NOT-TAKING CALCIPOTRIENE 0.005 % OINTMENT 1 APPLICATION TO AFFECTED AREA EXTERNALLY ONCE A DAY NOT-TAKING FLUTICASONE PROPIONATE HFA 110 MCG/ACT AEROSOL 1 PUFF INHALATION TWICE A DAY NOT-TAKING PREDNISONE TAPER 1 TAB ORAL NOT-TAKING GLUCOSAMINE SULFATE 500 MG TABLET 1 TABLET WITH A MEAL ORALLY ONCE A DAY NOT-TAKING REQUIP 0.5 MG TABLET 2 HOURS BEFORE BEDTIME ORALLY ONCE A DAY NOT-TAKING TOPIRAMATE 100 MG TABLET 1 TABLET ORALLY 1 IN AM AND IN EVENING NOT-TAKING VENLAFAXINE HCL 50 MG TABLET 150 MG CAP ORALLY DAILY NOT-TAKING OMEPRAZOLE 20 MG CAPSULE DELAYED RELEASE 1 CAP ORALLY BID NOT-TAKING CLOBETASOL PROPIONATE 0.05 % CREAM 1 APPLICATION TO AFFECTED AREA EXTERNALLY TWICE A DAY NEEDED MEDICATION LIST REVIEWED AND RECONCILED WITH THE PATIENT PAST MEDICAL HISTORY FIBROMYALGIA CHRONIC HEADACHE DIABETES DEPRESSION PSORIATIC ARTHITIS OA DROP FOOT DDD STENOSIS 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29 LIFETIME BREAST CANCER RISK CALCULATED AT 5.9 % GENETIC MUTATION TEST NEG 2018 ASTHMA BILATERAL SHOULDER PAIN RADIATING DOWN BOTH ARMS NECK LOW BACK PAIN ALLERGIES CONTRAST MEDIA: RASH - ALLERGY IODINE: HIVES - ALLERGY NEOMYCIN SULFATE: RASH - ALLERGY POLYMYXIN B SULFATE: RASH - ALLERGY BEE VENOM: SWELLING - ALLERGY AMINOGLYCOSIDES: RASH - ALLERGY ASPIRIN: NAUSEA - ALLERGY IBUPROFEN: VOMITING - ALLERGY NAPROXEN: NAUSEA - ALLERGY DICLOFENAC: NAUSEA - ALLERGY GABAPENTIN: URINARY INCONTINENCE - SIDE EFFECTS APPLE (DIAGNOSTIC): SWELLING OF URETHRA/BLADDER MEMBRANES - ALLERGY NEOSPORIN: RASH - ALLERGY ENVIRONMENTAL: CONGESTION - ALLERGY ADHESIVE BANDAGES: RASH - ALLERGY SOCIAL HISTORY GENERAL: TOBACCO USE ARE YOU A:FORMER SMOKER HOW LONG HAS IT BEEN SINCE YOU LAST SMOKED?> 10 YEARS LATEX QUESTIONNAIRE LATEX ALLERGY : HAVE YOU EVER DEVELOPED ANY TYPE OF REACTION AFTER HANDLING LATEX PRODUCTS SUCH RUBBER GLOVES, CONDOMS, DIAPHRAGMS, BALLOONS, SOCKS, OR UNDERWEAR?NO LATEX ALLERGY : HAVE YOU EVER DEVELOPED ANY TYPE OF REACTION DURING OR AFTER DENTAL APPOINTMENT, VAGINAL/RECTAL EXAMINATION, SURGICAL PROCEDURE, OR ANY OTHER EXPOSURE?NO LATEX RISK : HAVE YOU EVER HAD ANY DIFFICULTY BREATHING OR HIVES AFTER EATING OR HANDLING ANY FRUITS, OR VEGETABLES; SUCH KIWI, BANANAS, STONE FRUITS, OR CHESTNUTSNO LATEX RISK : DO YOU HAVE A PREVIOUS PERSONAL HISTORY OF MORE THAN NINE SURGERIES, SPINA BIFIDA, OR REPEATED CATHERIZATIONS? NO LATEX RISK : ARE YOU FREQUENTLY EXPOSED TO LATEX PRODUCTS IN YOUR OCCUPATION?NO DATE ASKED : 05/21/2020 ALCOHOL USE: NO. BMI CARE GOAL FOLLOW-UP ABOVE NORMAL BMI FOLLOW-UPGIVING ENCOURAGEMENT TO EXERCISE ALCOHOL SCREENING DID YOU HAVE A DRINK CONTAINING ALCOHOL IN THE PAST YEAR?NO POINTS0 INTERPRETATIONNEGATIVE RECREATIONAL DRUG USE DRUG USE?NO PATIENT DENIES ABUSE OR MISSUSED OF ANY MEDICATION. CAFFEINE CAFFEINE USE?YES HOW OFTEN AND HOW MUCH? 2 CUPS COFFEE INTHE AM BOTTLE OF TEA IN THE MID MORNING HIV / HEP-C SCREENING HIV TEST OFFERED TO PATIENT:YES DATE OFFERED:02/02/2017 TEST ACCEPTED:NO HEP-C TEST OFFERED TO PATIENT:YES DATE OFFERED:02/02/2017 REASON:PATIENT DECLINED TEST ACCEPTED:NO REASON:PATIENT DECLINED RASTAFARIAN [id number] OTHER [facility] LANGUAGE ALBANIAN. 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 DIET: REGULAR. EXERCISE: WALKS DAILY. MARITAL STATUS: . OTHERS AT HOME: SPOUSE. - PFS REFERRAL NEEDED?NO CLERGY REFERRAL NEEDED?NO PUBLIC HEALTH REFERRAL NEEDED?NO HAS THE PATIENT BEEN EDUCATED REGARDING HIS/HER PLAN OF CARE?YES HAS THE PATIENT BEEN EDUCATED REGARDING PAIN, THE RISK FOR PAIN, THE IMPORTANCE OF EFFECTIVE PAIN MANAGEMENT, AND THE PAIN ASSESSMENT PROCESS?YES ADVANCE DIRECTIVE ADVANCE DIRECTIVE DISCUSSED WITH PATIENT:YES 02/21/20 PATIENT DOES NOT HAVE ANY ADVANCED DIRECTIVES AND SHE DECLINES HCP INFORMATION AND ASSISTANCE AT THIS TIME. REVIEW OF SYSTEMS CONSTITUTIONAL: ANY RECENT FEVER NO . CHILLS NO . WEIGHT CHANGE OF UNKNOWN REASONS NO . GASTROENTEROLOGY: NEW UNEXPLAINABLE CHANGES IN BOWEL CONTROL NO . CONSTIPATION NO . GENITOURINARY: ANY NEW CHANGE IN BLADDER CONTROL? NO . NEUROLOGY: NEW ONSET DIZZINESS OR NEUROLOGICAL CHANGES NOT MENTIONED NO . NEW NUMBNESS OR PAIN PATTERNS NOT MENTIONED AND PERTINENT TO TODAY'S VISIT NO . CARDIOLOGY: NEW CHEST PRESSURE NO . PATIENT DENIES NO . RESPIRATORY: UNEXPLAINABLE COUGH NO . NEW SHORTNESS OF BREATH NO . VITAL SIGNS WT 185.4 LBS, HT 61.5 IN, BMI 34.46 INDEX, BP 139/74 MM HG, HR 103 /MIN, RR 18 /MIN, TEMP 96.3 F, OXYGEN SAT % 96%, SAFE IN ENV? (Y/N) YES, NA INITIALS TX 10:21T.ADIN SHRESTHA. EXAMINATION GENERAL EXAMINATION: GENERALAWAKE,ALERT ,PLEASANT . PSYCHAFFECT NORMAL . LUNGS:LUNG HUBBARD ARE CLEAR TO AUSCULTATION BILATERALLY. GOOD MOVEMENT OF AIR . HEART:S1, S2 IN A REGULAR RATE AND RHYTHM. NO SIGNIFICANT MURMURS, RUBS OR GALLOPS NOTED . ASSESSMENTS CHRONIC PRESCRIPTION OPIATE USE - Z79.891 (PRIMARY) PSORIATIC ARTHRITIS - L40.50 INFLAMMATORY ARTHROPATHY - M19.90 TREATMENT CHRONIC PRESCRIPTION OPIATE USE REFILL TRAMADOL HCL TABLET, 50 MG, 1 TAB, ORALLY, Q6H PRN PAIN MDD4, 30 DAYS, 120, REFILLS 2 CONTINUE CYMBALTA CAPSULE DELAYED RELEASE PARTICLES, 60 MG, 1 CAPSULE, ORALLY, ONCE A DAY LAB: [facility] NIURKA OAKLEY 05/21/2020 10:52:40 AM > LAST DOSE :TRAMADOL 05/21/2020 NOTES: ISTOP REGISTRY REVIEWED AND DEMONSTRATES COMPLLIANCE. PROCEDURE CODES FA211 ESTABILISHED PATIENT FORMERLY [facility] CHARGE DISPOSITION & COMMUNICATION FOLLOW UP 3 MONTHS (REASON: MED MGMNT) ELECTRONICALLY SIGNED BY ANGELICA LIZARRAGA ON 05/22/2020 AT 11:19 AM EDT DISCLAIMER : THIS IS A VISIT SUMMARY EXTRACTED FROM THE [facility] CHART. IT IS NOT A COPY OF THE [facility] PROGRESS NOTE. CHICAD
== END ==
LOC: M PAIN 10:15
PROVIDERS: ATTEND Nurse Practitioner Family
DX: L40.50 Arthropathic psoriasis, unspecified (principal); M19.90 Unspecified osteoarthritis, unspecified site; M79.7 Fibromyalgia; E11.9 Type 2 diabetes mellitus without complications; F32.9 Major depressive disorder, single episode, unspecified; J45.909 Unspecified asthma, uncomplicated; M54.2 Cervicalgia; M54.5 Low back pain; Z87.891 Personal history of nicotine dependence; Z79.891 Long term (current) use of opiate analgesic; Z79.899 Other long term (current) drug therapy; Z88.2 Allergy status to sulfonamides; Z88.8 Allergy status to other drugs, medicaments and biological substances; Z91.030 Bee allergy status; Z88.6 Allergy status to analgesic agent; Z91.018 Allergy to other foods

== ENCOUNTER → 2020-05-25 | Outpatient (CLI) | payer MEDICARE ==
[2020-05-25 13:04] LABS: BASO # 0.1 10^3/uL (0.0-0.2); BASO % 0.7 % (0.0-1.0); EOS # 0.1 10^3/uL (0.0-0.5); EOS % 1.2 % (0.0-3.0); HEMATOCRIT 41.4 % (36.0-47.0); HEMOGLOBIN 13.3 g/dl (12.0-15.5); LYMPH # 3.1 10^3/uL (1.5-5.0); LYMPH % 26.5 % (24.0-44.0); MEAN CORPUSCULAR HEMOGLOBIN 28.2 pg (27.0-33.0); MEAN CORPUSCULAR HGB CONC 32.1 g/dl (32.0-36.5); MEAN CORPUSCULAR VOLUME 87.7 fl (80.0-96.0); MONO # 0.9 10^3/uL (0.0-0.8); MONO % 7.9 % (2.0-8.0); NEUTROPHILS # 7.4 10^3/uL (1.5-8.5); NEUTROPHILS % 63.4 % (36.0-66.0); PLATELET COUNT, AUTOMATED 208 10^3/uL (150-450); RED BLOOD COUNT 4.72 10^6/uL (4.00-5.40); WHITE BLOOD COUNT 11.6 10^3/uL (4.0-10.0)
[2020-05-25 13:43] LABS: ERYTHROCYTE SEDIMENTATION RATE 41 mm/hr (0-30)
[2020-05-25 13:45] LABS: ALT/SGPT 42 U/L (12-78); BLOOD UREA NITROGEN 15 MG/DL (7-18); C REACTIVE PROTEIN QUANTITATIV 1.22 MG/DL (0.00-0.30); CREATININE FOR GFR 0.71 MG/DL (0.55-1.30); GLOMERULAR FILTRATION RATE > 60.0 (>45)
== END ==
LOC: M LAB 12:27
PROVIDERS: ATTEND Nurse Practitioner Family
DX: L40.59 Other psoriatic arthropathy (principal); F34.1 Dysthymic disorder

== ENCOUNTER → 2020-08-20 | Outpatient (CLI) | payer MEDICARE ==
--- NOTE | 2020-08-22 04:44 | ECWPNPC ---
PATIENT NAME: MITESH MADRID : 1950 GENDER: FEMALE VISIT DATE: 08/20/2020 DISCHARGE DATE: 08/20/20 1112 VISIT LOCKED DATE TIME: PHYSICIAN: FRANCES LUCIA RESOURCE: FRANCES LUCIA REASON FOR APPOINTMENT 1. MED MGMNT/NECK/LBP HISTORY OF PRESENT ILLNESS DEPRESSION SCREENING: PHQ-2 (2015 EDITION) LITTLE INTEREST OR PLEASURE IN DOING THINGS?NOT AT ALL FEELING DOWN, DEPRESSED, OR HOPELESS?NOT AT ALL TOTAL SCORE0 GENERAL: HERE FOR FOLLOW-UP OF CHRONIC NECK AND LOW BACK PAIN. OVERALL FEELS CURRENT MEDICATIONS HELPFUL AT REDUCING PAIN AND KEEPING HER COMFORTABLE. DENIES ADVERSE SIDE EFFECTS. HISTORY OF PSORIATIC ARTHRITIS. IN THE PROCESS OF HAVING HER MEDICATIONS CHANGED DUE TO FLAREUP OF PSORIATIC RASH ON HER HANDS. FOLLOWS WITH [facility]. - -. FALL RISK SCREENING: SCREENING : NO FALLS REPORTED IN THE LAST YEAR. PAIN SCREENING: PATIENT HAS A COMPLAINT OF ACUTE OR CHRONIC PAIN :YES LOCATION OF PAIN:NECK, LOW BACK INTENSITY OF PAIN (SCALE OF 1 TO 10):3 WHAT DOES YOUR PAIN FEEL LIKE:CONTINOUS, SHOOTING DURATION:CONTINOUS, CONSTANT, ALL DAY PAIN IS INCREASED BY:ACTIVITIES PAIN IS DECREASED BY:USE OF PAIN MEDICATIONS NURSING NOTE: -. PAIN CENTER INTAKE QUESTIONS: DO YOU HAVE A HISTORY OF MRSA? :NO DO YOU TAKE A BLOOD THINNERS? :NO DO YOU HAVE ANY BLEEDING DISORDERS? :NO ANY NEW NUMBNESS OR WEAKNESS IN YOUR LEGS OR ARMS? :YES LOW BACK PAIN RUN INTO RIGHT HIP AND RIGHT LEG. PAIN IN THE NECK RUNS INTO THE HEAD ANY PACEMAKER,DEFIBRILLATOR, OR DORSAL COLUMN STIMULATOR? :NO DO YOU HAVE ANY RASHES OR OPEN SORES? :YES PSORIOSIS ARE YOU ALLERGIC TO IV DYE? :YES ARE YOU DIABETIC? :YES ANY NEW PROBLEMS WITH YOUR MEDICATIONS? :NO HAVE YOU RECEIVED A VACCINE IN THE PAST 30 DAYS? :NO MODERNA 1ST: 06/03/2020 2ND : 07/03/2020 DO YOU PLAN TO RECEIVE A VACCINE IN THE NEXT 21 DAYS? :NO DO YOU NEED ANY PRESCRIPTION? : NOT SURE DO YOU TAKE ANY IMMUNOSUPPRESSIVE MEDICATIONS? :YES ORENCIA, LEFLUNOMIDE, TRIAMCINOLONE CREAM IS THERE A CHANCE YOU COULD BE ? :NO ARE YOU BREAST FEEDING? :NO CURRENT MEDICATIONS TAKING ATORVASTATIN CALCIUM 40 MG TABLET 1 TABLET ORALLY ONCE A DAY TAKING BUSPIRONE HCL 30 MG TABLET 1 TABLET ORALLY DAILY TAKING BIOTIN 5000 5 MG CAPSULE 3 CAPSULE ORALLY ONCE A DAY TAKING CALCIUM 500 MG TABLET 2 TABS ORALLY 666MG DAILY TAKING FISH OIL 1500 MG CAPSULE 1 CAPSULE ORALLY ONCE A DAY TAKING LEFLUNOMIDE 20 MG TABLET 1 TABLET ORALLY DAILY TAKING LORATADINE 10 MG TABLET 1 TABLET ORALLY ONCE A DAY TAKING METFORMIN HCL 500 MG TABLET ORALLY TWICE A DAY TAKING MULTI-VITAMIN TABLET 1 TABLET ORALLY ONCE A DAY TAKING POTASSIUM CHLORIDE 10 MEQ CAPSULE EXTENDED RELEASE MCG ORALLY TAKE ON DAYS THAT TAKE TORSEMIDE TAKING RELPAX 40 MG TABLET 1 TABLET NEEDED ONE TIME ORALLY ONCE A DAY PRN TAKING TORSEMIDE 10 MG TABLET 1 TABLET ORALLY ON 3 DAYS, OFF 3 DAYS PRN EDEMA TAKING VITAMIN D 2000 UNIT TABLET 1 TABLET ORALLY ONCE A DAY TAKING VENTOLIN HFA 108 (90 BASE) MCG/ACT AEROSOL SOLUTION 2 PUFFS NEEDED INHALATION EVERY 6 HRS TAKING FERROUS GLUCONATE 225 (27 FE) MG TABLET 1 TABLET ORALLY EVERY OTHER DAY TAKING GLUCOSAMINE CHOND COMPLEX/MSM - TABLET 2 TABLETS ORALLY DAILY TAKING PROBIOTIC CAPSULE ORALLY DAILY TAKING ARMONAIR RESPICLICK 113 113 MCG/ACT AEROSOL POWDER BREATH ACTIVATED 1 PUFF INHALATION TWICE A DAY TAKING FAMOTIDINE 40 MG TABLET 1 TABLET AT BEDTIME ORALLY ONCE A DAY TAKING ORENCIA 50 MG/0.4ML SOLUTION PREFILLED SYRINGE DIRECTED SUBCUTANEOUS Q 4 WEEKS, NOTES: ENDAL IS GONNA CHANGED TAKING OXYBUTYNIN CHLORIDE 5 MG TABLET 1.5 TABS ORALLY TWICE DAILY TAKING TRIAMCINOLONE ACETONIDE 0.5 % CREAM 1 APPLICATION EXTERNALLY TWICE DAILY TAKING PANTOPRAZOLE SODIUM 40 MG TABLET DELAYED RELEASE 1 TABLET ORALLY ONCE A DAY TAKING TRAMADOL HCL 50 MG TABLET 1 TAB ORALLY THREE - FOUR TIMES A DAY TAKING CYMBALTA 60 MG CAPSULE DELAYED RELEASE PARTICLES 1 CAPSULE ORALLY TWICE A DAY NOT-TAKING PROTONIX 40 MG TABLET DELAYED RELEASE 1 TABLET ORALLY ONCE A DAY NOT-TAKING EMLA 2.5-2.5 % CREAM ONE APPLICATION EXTERNALLY PRN NOT-TAKING ORENCIA 250 MG SOLUTION RECONSTITUTED DIRECTED INTRAVENOUS ONCE EVERY 4 WEEKS NOT-TAKING ACETAMINOPHEN 500 MG TABLET 1500MG ORALLY 1 TAB AM, 1 AT 3PM, 1 TAB AT BEDTIME NOT-TAKING SIMPONI ARIA 50 MG/4ML SOLUTION DIRECTED INTRAVENOUS NOT-TAKING REMICADE 100 MG SOLUTION RECONSTITUTED INTRAVENOUS 700MG EVERY 5 WKS NOT-TAKING RANITIDINE HCL 150 MG CAPSULE 1 CAPSULE AT BEDTIME ORALLY ONCE A DAY NOT-TAKING EZETIMIBE 10 MG TABLET 1 TABLET ORALLY ONCE A DAY NOT-TAKING TOPIRAMATE 100 MG TABLET 1 TABLET IN AM ORALLY IN AM NOT-TAKING TOPIRAMATE 150 MG TABLET 1 TABLET ORALLY AT BEDTIME NOT-TAKING CALCIPOTRIENE 0.005 % OINTMENT 1 APPLICATION TO AFFECTED AREA EXTERNALLY ONCE A DAY NOT-TAKING FLUTICASONE PROPIONATE HFA 110 MCG/ACT AEROSOL 1 PUFF INHALATION TWICE A DAY NOT-TAKING PREDNISONE TAPER 1 TAB ORAL NOT-TAKING GLUCOSAMINE SULFATE 500 MG TABLET 1 TABLET WITH A MEAL ORALLY ONCE A DAY NOT-TAKING REQUIP 0.5 MG TABLET 2 HOURS BEFORE BEDTIME ORALLY ONCE A DAY NOT-TAKING TOPIRAMATE 100 MG TABLET 1 TABLET ORALLY 1 IN AM AND IN EVENING NOT-TAKING VENLAFAXINE HCL 50 MG TABLET 150 MG CAP ORALLY DAILY NOT-TAKING OMEPRAZOLE 20 MG CAPSULE DELAYED RELEASE 1 CAP ORALLY BID NOT-TAKING CLOBETASOL PROPIONATE 0.05 % CREAM 1 APPLICATION TO AFFECTED AREA EXTERNALLY TWICE A DAY NEEDED MEDICATION LIST REVIEWED AND RECONCILED WITH THE PATIENT PAST MEDICAL HISTORY FIBROMYALGIA CHRONIC HEADACHE DIABETES DEPRESSION PSORIATIC ARTHITIS OA DROP FOOT DDD STENOSIS 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29 LIFETIME BREAST CANCER RISK CALCULATED AT 5.9 % GENETIC MUTATION TEST NEG 2018 ASTHMA BILATERAL SHOULDER PAIN RADIATING DOWN BOTH ARMS NECK LOW BACK PAIN ALLERGIES CONTRAST MEDIA: RASH - ALLERGY IODINE: HIVES - ALLERGY NEOMYCIN SULFATE: RASH - ALLERGY POLYMYXIN B SULFATE: RASH - ALLERGY BEE VENOM: SWELLING - ALLERGY AMINOGLYCOSIDES: RASH - ALLERGY ASPIRIN: NAUSEA - ALLERGY IBUPROFEN: VOMITING - ALLERGY NAPROXEN: NAUSEA - ALLERGY DICLOFENAC: NAUSEA - ALLERGY GABAPENTIN: URINARY INCONTINENCE - SIDE EFFECTS APPLE (DIAGNOSTIC): SWELLING OF URETHRA/BLADDER MEMBRANES - ALLERGY NEOSPORIN: RASH - ALLERGY ENVIRONMENTAL: CONGESTION - ALLERGY ADHESIVE BANDAGES: RASH - ALLERGY SOCIAL HISTORY GENERAL: TOBACCO USE ARE YOU A:FORMER SMOKER HOW LONG HAS IT BEEN SINCE YOU LAST SMOKED?> 10 YEARS LATEX QUESTIONNAIRE LATEX ALLERGY : HAVE YOU EVER DEVELOPED ANY TYPE OF REACTION AFTER HANDLING LATEX PRODUCTS SUCH RUBBER GLOVES, CONDOMS, DIAPHRAGMS, BALLOONS, SOCKS, OR UNDERWEAR?NO LATEX ALLERGY : HAVE YOU EVER DEVELOPED ANY TYPE OF REACTION DURING OR AFTER DENTAL APPOINTMENT, VAGINAL/RECTAL EXAMINATION, SURGICAL PROCEDURE, OR ANY OTHER EXPOSURE?NO LATEX RISK : HAVE YOU EVER HAD ANY DIFFICULTY BREATHING OR HIVES AFTER EATING OR HANDLING ANY FRUITS, OR VEGETABLES; SUCH KIWI, BANANAS, STONE FRUITS, OR CHESTNUTSNO LATEX RISK : DO YOU HAVE A PREVIOUS PERSONAL HISTORY OF MORE THAN NINE SURGERIES, SPINA BIFIDA, OR REPEATED CATHERIZATIONS? NO LATEX RISK : ARE YOU FREQUENTLY EXPOSED TO LATEX PRODUCTS IN YOUR OCCUPATION?NO DATE ASKED : 08/20/2020 ALCOHOL USE: NO. BMI CARE GOAL FOLLOW-UP ABOVE NORMAL BMI FOLLOW-UPGIVING ENCOURAGEMENT TO EXERCISE ALCOHOL SCREENING DID YOU HAVE A DRINK CONTAINING ALCOHOL IN THE PAST YEAR?NO POINTS0 INTERPRETATIONNEGATIVE RECREATIONAL DRUG USE DRUG USE?NO PATIENT DENIES ABUSE OR MISSUSED OF ANY MEDICATION. CAFFEINE CAFFEINE USE?YES HOW OFTEN AND HOW MUCH? 2 CUPS COFFEE INTHE AM BOTTLE OF TEA IN THE MID MORNING HIV / HEP-C SCREENING HIV TEST OFFERED TO PATIENT:YES DATE OFFERED:02/02/2017 TEST ACCEPTED:NO HEP-C TEST OFFERED TO PATIENT:YES DATE OFFERED:02/02/2017 REASON:PATIENT DECLINED TEST ACCEPTED:NO REASON:PATIENT DECLINED SIKHISM [id number] OTHER [facility] LANGUAGE HEBREW. 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 DIET: REGULAR. EXERCISE: WALKS DAILY. MARITAL STATUS: . OTHERS AT HOME: SPOUSE. - PFS REFERRAL NEEDED?NO CLERGY REFERRAL NEEDED?NO PUBLIC HEALTH REFERRAL NEEDED?NO HAS THE PATIENT BEEN EDUCATED REGARDING HIS/HER PLAN OF CARE?YES HAS THE PATIENT BEEN EDUCATED REGARDING PAIN, THE RISK FOR PAIN, THE IMPORTANCE OF EFFECTIVE PAIN MANAGEMENT, AND THE PAIN ASSESSMENT PROCESS?YES ADVANCE DIRECTIVE ADVANCE DIRECTIVE DISCUSSED WITH PATIENT:YES 02/21/20 PATIENT DOES NOT HAVE ANY ADVANCED DIRECTIVES AND SHE DECLINES HCP INFORMATION AND ASSISTANCE AT THIS TIME. REVIEW OF SYSTEMS CONSTITUTIONAL: ANY RECENT FEVER NO . CHILLS NO . WEIGHT CHANGE OF UNKNOWN REASONS NO . GASTROENTEROLOGY: NEW UNEXPLAINABLE CHANGES IN BOWEL CONTROL NO . CONSTIPATION NO . GENITOURINARY: ANY NEW CHANGE IN BLADDER CONTROL? NO . NEUROLOGY: NEW ONSET DIZZINESS OR NEUROLOGICAL CHANGES NOT MENTIONED NO . NEW NUMBNESS OR PAIN PATTERNS NOT MENTIONED AND PERTINENT TO TODAY'S VISIT NO . CARDIOLOGY: NEW CHEST PRESSURE NO . PATIENT DENIES NO . RESPIRATORY: UNEXPLAINABLE COUGH NO . NEW SHORTNESS OF BREATH NO . VITAL SIGNS WT 192.0 LBS, HT 61.5 IN, BMI 35.69 INDEX, BP 146/65 MM HG, HR 117 /MIN, RR 18 /MIN, TEMP 98.0 F, OXYGEN SAT % 97%, SAFE IN ENV? (Y/N) YES, NA INITIALS AW 1025T.ADIN SHRESTHA. EXAMINATION GENERAL EXAMINATION: GENERALAWAKE,ALERT ,PLEASANT . PSYCHAFFECT NORMAL . LUNGS:LUNG HUBBARD ARE CLEAR TO AUSCULTATION BILATERALLY. GOOD MOVEMENT OF AIR . HEART:S1, S2 IN A REGULAR RATE AND RHYTHM. NO SIGNIFICANT MURMURS, RUBS OR GALLOPS NOTED . ASSESSMENTS PSORIATIC ARTHRITIS - L40.50 (PRIMARY) INFLAMMATORY ARTHROPATHY - M19.90 TREATMENT PSORIATIC ARTHRITIS CONTINUE TRAMADOL HCL TABLET, 50 MG, 1 TAB, ORALLY, THREE - FOUR TIMES A DAY CONTINUE CYMBALTA CAPSULE DELAYED RELEASE PARTICLES, 60 MG, 1 CAPSULE, ORALLY, TWICE A DAY PROCEDURE CODES FA211 ESTABILISHED PATIENT [facility] CHARGE DISPOSITION & COMMUNICATION FOLLOW UP 3 MONTHS (REASON: MED MGMNT/UTOX) ELECTRONICALLY SIGNED BY ANGELICA LIZARRAGA ON 08/21/2020 AT 08:53 AM EDT DISCLAIMER : THIS IS A VISIT SUMMARY EXTRACTED FROM THE [employer] CHART. IT IS NOT A COPY OF THE [employer] PROGRESS NOTE. CHICAD
== END ==
LOC: M PAIN 10:30
PROVIDERS: ATTEND Nurse Practitioner Family
DX: L40.50 Arthropathic psoriasis, unspecified (principal); M19.90 Unspecified osteoarthritis, unspecified site; M79.7 Fibromyalgia; E11.9 Type 2 diabetes mellitus without complications; F32.9 Major depressive disorder, single episode, unspecified; M54.5 Low back pain; J45.909 Unspecified asthma, uncomplicated; Z87.891 Personal history of nicotine dependence; Z79.84 Long term (current) use of oral hypoglycemic drugs; Z79.891 Long term (current) use of opiate analgesic; Z79.899 Other long term (current) drug therapy; Z88.8 Allergy status to other drugs, medicaments and biological substances; Z91.041 Radiographic dye allergy status; Z91.018 Allergy to other foods

== ENCOUNTER → 2020-10-22 | Outpatient (CLI) | payer MEDICARE ==
--- NOTE | 2020-10-22 13:19 | REP ---
INDICATION: CERVICALGIA. COMPARISON: None. TECHNIQUE: Seven views were obtained FINDINGS: There has been previous anterior cervical discectomy at C5-6 and C6-7 with internal fixation plate affixing C5-C6 and C6-7 along with bone graft material seen in those disc spaces. A swimmer's view was not obtained. I cannot see distal to C6. Degenerative facet and uncovertebral joint changes are present at every level bilaterally. The imaged vertebral bodies appear to be of normal height. IMPRESSION: The exam is limited. The patient should return for a swimmer's view. Findings as described above. Priors should be obtained for comparison. <Electronically signed by Damir Lion > 10/22/20 [id number]
== END ==
LOC: M PLAIMG 12:08
PROVIDERS: ATTEND Physician Assistant
DX: M54.2 Cervicalgia (principal)

== ENCOUNTER → 2020-11-07 | Outpatient (CLI) | payer MEDICARE | LOC: M PAIN 10:30 | PROVIDERS: ATTEND Nurse Practitioner Family | DX: M54.2 Cervicalgia (principal); M54.41 Lumbago with sciatica, right side; M54.6 Pain in thoracic spine; M79.7 Fibromyalgia; E11.9 Type 2 diabetes mellitus without complications; R51.9 Headache, unspecified; F32.9 Major depressive disorder, single episode, unspecified; L40.50 Arthropathic psoriasis, unspecified; J45.909 Unspecified asthma, uncomplicated; Z85.030 Personal history of malignant carcinoid tumor of large intestine; Z87.891 Personal history of nicotine dependence; Z79.891 Long term (current) use of opiate analgesic; Z79.899 Other long term (current) drug therapy ==

== ENCOUNTER → 2020-12-06 | Outpatient (CLI) | payer MEDICARE ==
[~2020-12-06] MED LIST changes: +ETAN50SY SC; +READI-CAT 2 As Ordered ONE
--- NOTE | 2020-12-06 14:14 | REP ---
INDICATION: HX OF LEUKOCYTOSIS. COMPARISON: Comparison CT study of the chest is from April 09, 2020. TECHNIQUE: Helical scanning is acquired. 3 mm axial images are generated. Coronal and sagittal MPR and coronal MIP images are generated. FINDINGS: Preliminary digital manager quality radiograph is unremarkable. There is no evidence of infiltrate to suggest pneumonitis. No pleural or pericardial effusion is evident. No hilar or mediastinal mass or adenopathy is observed. Mild vascular calcification is observed. Normal adrenal glands are seen. No pulmonary mass or significant nodule is appreciated. There is minimal linear fibrosis in the lingula and right lower lobe. There is mild apical pleuroparenchymal scarring on the right unchanged. Ingested oral contrast is seen throughout the lumen of the esophagus which suggests gastroesophageal reflux. IMPRESSION: No acute cardiopulmonary disease seen. <Electronically signed by Jerzy Pacheco > 12/06/20 [id number]
--- NOTE | 2020-12-06 14:18 | REP ---
INDICATION: HX OF LEUKOCYTOSIS. COMPARISON: None. TECHNIQUE: Standard helical technique without intravenous contrast administration. Oral bowel preparatory contrast was administered prior to the exam. FINDINGS: The bowel loops and the mesenteries are within normal limits. There is no evidence of a mass or adenopathy. There is no free fluid or free air. Limited evaluation of the liver shows a 1.3 cm size calcification in the posterior segment of the right lobe. Hepatic and splenic densities are within normal limits. The gallbladder, pancreas, and adrenal glands are within normal limits. In the superior pole of the right kidney there is a 1.6 cm sized low-density structure. This has water density Hounsfield unit readings. In the inferior pole the left kidney there is a 3 mm size calcification which does not cause obstructive phenomena. Also seen in the left kidney inferior pole there is a round 1.5 cm sized low-density structure which has somewhat higher than water density Hounsfield unit readings. The abdominal aorta and para-aortic regions are within normal limits. Bone window technique throughout the examination shows the osseous structures to be within normal limits. IMPRESSION: There is no evidence of acute intra-abdominal or intrapelvic disease. There are bilateral renal cysts as described above. The cyst on the left is hyperdense. There is a nonobstructing left nephrolith as described above. There is a benign calcification in the liver, however, since are no priors comparison consider pre and postcontrast enhanced hepatic CT as follow-up. <Electronically signed by Damir Lion > 12/06/20 [id number]
== END ==
LOC: M RAD 12:31
PROVIDERS: ATTEND Internal Medicine Hematology & Oncology
DX: D72.829 Elevated white blood cell count, unspecified (principal)

== ENCOUNTER → 2020-12-18 | Outpatient (CLI) | payer MEDICARE ==
[~2020-12-18] MED LIST changes: -READI-CAT 2 As Ordered ONE
== END ==
LOC: M PAIN 11:00
PROVIDERS: ATTEND Nurse Practitioner Family
DX: M54.41 Lumbago with sciatica, right side (principal); M54.2 Cervicalgia; M79.7 Fibromyalgia; E11.9 Type 2 diabetes mellitus without complications; F32.9 Major depressive disorder, single episode, unspecified; L40.50 Arthropathic psoriasis, unspecified; J45.909 Unspecified asthma, uncomplicated; Z87.891 Personal history of nicotine dependence; Z79.891 Long term (current) use of opiate analgesic; Z79.899 Other long term (current) drug therapy; Z91.041 Radiographic dye allergy status; Z91.030 Bee allergy status; Z88.6 Allergy status to analgesic agent; Z91.048 Other nonmedicinal substance allergy status; Z91.018 Allergy to other foods

== ENCOUNTER → 2021-01-23 | Outpatient (CLI) | payer MEDICARE ==
[~2021-01-23] MED LIST changes: +SYNJ1TAB PO
--- NOTE | 2021-01-23 14:00 | REPMRS ---
Patient History The patient states she had a clinical breast exam in January 2021. Family history of colorectal cancer at age 50 or over in father, colorectal cancer at age 50 or over in maternal grandmother, colorectal cancer at age 50 or over in paternal grandmother, colorectal cancer at age 50 or over in sister, colorectal cancer at age 50 or over in brother, pancreatic cancer at age 50 or over in paternal aunt. Took estrogen for 15 years. Patient states no breast complaints today. Patient has signed MRS History Sheet. Digital Woman Screen Mammo: January 23, 2021 - Exam #: [id number] Bilateral CC and MLO view(s) were taken. Technologist: Blossom Bryant, Technologist Prior study comparison: January 23, 2020, bilateral digital woman screen mammo performed at [facility]. January 19, 2019, bilateral digital woman screen mammo performed at [facility]. FINDINGS: There are scattered fibroglandular densities. Screening. Digital screening (2D) mammography was performed bilaterally in the CC and MLO projections. Additionally, breast tomosynthesis (3D mammography) was performed bilaterally in the CC and MLO projections. Todays exam was compared to the prior exam/exams. By history, the patient has no complaints of a palpable breast abnormality or other significant breast complaints. The Volpara volumetric breast density category is B, there are scattered areas of fibroglandular densities. The breasts are unchanged in size and shape. There are no miriam-soft tissue densities or spiculated masses. There is no internal architectural distortion. There are no suspicious miriam-calcific clusters. Skin thickening or nipple retraction is not present. IMPRESSION: BI-RADS Category 2- Benign Findings. There is no evidence of malignant alteration of the breasts. Followup examination recommended in one year. The lifetime Tyrer-Cuzick score is 4.2% This mammogram was read with the assistance of [employer],an FDA approved computer aided detection system for mammography. Negative x-ray reports should not delay surgical consultation if a dominant or clinically suspicious mass is present. Not all breast cancers can be identified by mammography. Therefore, we recommend that you continue to perform regular breast self-examination and physical examination and then promptly contact your physician of any concerns or changes. Adenosis and dense breasts may obscure an underlying neoplasm. No significant changes when compared with prior studies. Assessment: BI-RADS/ACR category 2 mammogram. Benign Findings. Recommendation Routine screening mammogram of both breasts in 1 year. Electronically Signed By: Fredo eHredia MD 01/23/21 [id number]
== END ==
LOC: M WHC 10:25
PROVIDERS: ATTEND Nurse Practitioner Women's Health
DX: Z01.419 Encounter for gynecological examination (general) (routine) without abnormal findings (principal); Z12.31 Encounter for screening mammogram for malignant neoplasm of breast; Z80.0 Family history of malignant neoplasm of digestive organs; Z92.23 Personal history of estrogen therapy
CPT/HCPCS: 77063; 77067; G0101

== ENCOUNTER → 2021-02-21 | Outpatient (CLI) | payer MEDICARE | LOC: M PAIN 11:15 | PROVIDERS: ATTEND Anesthesiology | DX: M79.18 Myalgia, other site (principal); M54.2 Cervicalgia; M54.50 Low back pain, unspecified; M54.6 Pain in thoracic spine; M79.7 Fibromyalgia; R51.9 Headache, unspecified; E11.9 Type 2 diabetes mellitus without complications; F32.A Depression, unspecified; L40.50 Arthropathic psoriasis, unspecified; J45.909 Unspecified asthma, uncomplicated; Z87.891 Personal history of nicotine dependence; Z79.891 Long term (current) use of opiate analgesic; Z79.899 Other long term (current) drug therapy; Z88.6 Allergy status to analgesic agent; Z88.8 Allergy status to other drugs, medicaments and biological substances; Z91.018 Allergy to other foods; Z91.030 Bee allergy status; Z91.040 Latex allergy status ==

== ENCOUNTER → 2021-04-29 | Outpatient (CLI) | payer MEDICARE | LOC: M WHC 10:59 | PROVIDERS: ATTEND Physician Assistant | DX: M85.851 Other specified disorders of bone density and structure, right thigh (principal); M85.88 Other specified disorders of bone density and structure, other site; M45.0 Ankylosing spondylitis of multiple sites in spine; L40.50 Arthropathic psoriasis, unspecified ==

== ENCOUNTER → 2021-05-22 | Outpatient (CLI) | payer MEDICARE | LOC: M PAIN 11:00 | PROVIDERS: ATTEND Nurse Practitioner Family | DX: M79.18 Myalgia, other site (principal); E11.9 Type 2 diabetes mellitus without complications; M79.7 Fibromyalgia; R51.9 Headache, unspecified; F32.A Depression, unspecified; L40.50 Arthropathic psoriasis, unspecified; J45.909 Unspecified asthma, uncomplicated; M54.2 Cervicalgia; M54.50 Low back pain, unspecified; M25.511 Pain in right shoulder; M25.512 Pain in left shoulder; Z87.891 Personal history of nicotine dependence; Z79.891 Long term (current) use of opiate analgesic; Z79.899 Other long term (current) drug therapy; Z88.6 Allergy status to analgesic agent; Z88.8 Allergy status to other drugs, medicaments and biological substances; Z91.030 Bee allergy status; Z91.018 Allergy to other foods; Z91.041 Radiographic dye allergy status ==

== ENCOUNTER → 2021-05-31 | Outpatient (CLI) | payer MEDICARE | LOC: M RAD 09:49 | PROVIDERS: ATTEND Nurse Practitioner Adult Health | DX: Z87.891 Personal history of nicotine dependence (principal) ==

== ENCOUNTER → 2021-06-04 | Outpatient (REF) | payer MEDICARE | LOC: M LAB REF 19:14 | PROVIDERS: ATTEND Physician Assistant | DX: R35.0 Frequency of micturition (principal) ==

== ENCOUNTER → 2021-07-16 | Outpatient (CLI) | payer MEDICARE ==
[~2021-07-16] MED LIST changes: +COSE1INJ3; +LISI5TAB11; +MULT-90 PO; +VITA200012 PO
[2021-07-16 11:55] LABS: HEMATOCRIT 40.3 % (36.0-47.0); HEMOGLOBIN 13.1 g/dl (12.0-15.5); MEAN CORPUSCULAR HEMOGLOBIN 28.6 pg (27.0-33.0); MEAN CORPUSCULAR HGB CONC 32.5 g/dl (32.0-36.5); PLATELET COUNT, AUTOMATED 216 10^3/uL (150-450); RED BLOOD COUNT 4.58 10^6/uL (4.00-5.40); WHITE BLOOD COUNT 11.9 10^3/uL (4.0-10.0)
[2021-07-16 12:28] LABS: ALBUMIN 3.5 GM/DL (3.2-5.2); ALT/SGPT 40 U/L (12-78); BILIRUBIN,DIRECT < 0.1 MG/DL (0.0-0.2); BILIRUBIN,TOTAL 0.2 MG/DL (0.2-1.0); BLOOD UREA NITROGEN 13 MG/DL (7-18); CALCIUM LEVEL 9.5 MG/DL (8.8-10.2); CARBON DIOXIDE LEVEL 23 MEQ/L (21-32); CHLORIDE LEVEL 109 MEQ/L (98-107); CREATININE FOR GFR 0.78 MG/DL (0.55-1.30); FREE T4 0.94 NG/DL (0.76-1.46); GLOMERULAR FILTRATION RATE > 60.0 (>45); GLUCOSE, FASTING 150 MG/DL (70-100); POTASSIUM SERUM 4.2 MEQ/L (3.5-5.1); SODIUM LEVEL 141 MEQ/L (136-145); TOTAL PROTEIN 6.9 GM/DL (6.4-8.2)
[2021-07-16 12:31] LABS: TOTAL 25(OH) VITAMIN D 40.4 NG/ML (30.0-100.0)
[2021-07-16 12:32] LABS: VITAMIN B12 LEVEL 499 PG/ML (247-911)
== END ==
LOC: M PLALAB 10:44 → M LAB 10:55
PROVIDERS: ATTEND Specialist
DX: E55.9 Vitamin D deficiency, unspecified (principal); E07.9 Disorder of thyroid, unspecified

== ENCOUNTER → 2021-08-21 | Outpatient (CLI) | payer MEDICARE | LOC: M PAIN 09:00 | PROVIDERS: ATTEND Anesthesiology | DX: M79.18 Myalgia, other site (principal); M54.2 Cervicalgia; M54.6 Pain in thoracic spine; M79.7 Fibromyalgia; E11.9 Type 2 diabetes mellitus without complications; F32.A Depression, unspecified; L40.50 Arthropathic psoriasis, unspecified; M54.50 Low back pain, unspecified; R51.9 Headache, unspecified; J45.909 Unspecified asthma, uncomplicated; Z87.891 Personal history of nicotine dependence; Z79.891 Long term (current) use of opiate analgesic; Z79.899 Other long term (current) drug therapy; Z88.6 Allergy status to analgesic agent; Z88.8 Allergy status to other drugs, medicaments and biological substances; Z91.041 Radiographic dye allergy status; Z91.030 Bee allergy status; Z91.018 Allergy to other foods ==

== ENCOUNTER → 2021-12-06 | Outpatient (CLI) | payer MEDICARE ==
[2021-12-06 16:23] LABS: BASO # 0.1 10^3/uL (0.0-0.2); BASO % 0.8 % (0.0-1.0); EOS # 0.2 10^3/uL (0.0-0.5); HEMATOCRIT 43.6 % (36.0-47.0); HEMOGLOBIN 13.6 g/dl (12.0-15.5); LYMPH # 3.3 10^3/uL (1.5-5.0); LYMPH % 27.9 % (24.0-44.0); MEAN CORPUSCULAR HEMOGLOBIN 28.1 pg (27.0-33.0); MEAN CORPUSCULAR HGB CONC 31.2 g/dl (32.0-36.5); MEAN CORPUSCULAR VOLUME 90.1 fl (80.0-96.0); MONO % 8.4 % (2.0-8.0); NEUTROPHILS # 7.2 10^3/uL (1.5-8.5); NEUTROPHILS % 60.5 % (36.0-66.0); PLATELET COUNT, AUTOMATED 234 10^3/uL (150-450); RED BLOOD COUNT 4.84 10^6/uL (4.00-5.40); WHITE BLOOD COUNT 11.9 10^3/uL (4.0-10.0)
[2021-12-06 16:53] LABS: ALBUMIN 3.7 GM/DL (3.2-5.2); ALT/SGPT 41 U/L (12-78); BILIRUBIN,TOTAL 0.3 MG/DL (0.2-1.0); BLOOD UREA NITROGEN 17 MG/DL (7-18); CALCIUM LEVEL 9.3 MG/DL (8.8-10.2); CARBON DIOXIDE LEVEL 28 MEQ/L (21-32); CHLORIDE LEVEL 105 MEQ/L (98-107); CREATININE FOR GFR 0.84 MG/DL (0.55-1.30); GLOMERULAR FILTRATION RATE > 60.0 (>45); GLUCOSE, FASTING 212 MG/DL (70-100); SODIUM LEVEL 139 MEQ/L (136-145); TOTAL PROTEIN 7.1 GM/DL (6.4-8.2)
== END ==
LOC: M PLALAB 12:42
PROVIDERS: ATTEND Dermatology
DX: Z79.899 Other long term (current) drug therapy (principal)

== ENCOUNTER → 2021-12-10 | Outpatient (CLI) | payer MEDICARE ==
[~2021-12-10] MED LIST changes: +CYCL-707 PO; +PRED20TA PO
== END ==
LOC: M PAIN 10:00
PROVIDERS: ATTEND Nurse Practitioner Family
DX: M79.18 Myalgia, other site (principal); M54.2 Cervicalgia; M79.7 Fibromyalgia; R51.9 Headache, unspecified; E11.9 Type 2 diabetes mellitus without complications; F32.A Depression, unspecified; M54.50 Low back pain, unspecified; L40.50 Arthropathic psoriasis, unspecified; M19.90 Unspecified osteoarthritis, unspecified site; J45.909 Unspecified asthma, uncomplicated; M21.379 Foot drop, unspecified foot; M25.511 Pain in right shoulder; M25.512 Pain in left shoulder; Z85.038 Personal history of other malignant neoplasm of large intestine; Z79.891 Long term (current) use of opiate analgesic; Z87.891 Personal history of nicotine dependence; Z79.899 Other long term (current) drug therapy; Z79.84 Long term (current) use of oral hypoglycemic drugs; Z88.6 Allergy status to analgesic agent; Z88.8 Allergy status to other drugs, medicaments and biological substances; Z91.030 Bee allergy status; Z91.041 Radiographic dye allergy status; Z91.018 Allergy to other foods; Z91.048 Other nonmedicinal substance allergy status

== ENCOUNTER 2021-12-16 10:47 | Emergency (ER) | payer MEDICARE ==
[~2021-12-16] VITALS: Ht 154.9 cm; Wt 81.8 kg
[~2021-12-16 10:47] MED LIST changes: -CYCL-707 PO; -PRED20TA PO
[2021-12-16 10:48] VITALS: BP 138/98
[2021-12-16] MEDS ORDERED: PRED20TA PO (11:53)
[2021-12-16] MEDS ORDERED: CYCL-707 PO (11:53)
== END 2021-12-16 11:58 | disposition home or self-care (01) ==
LOC: M ED 10:47
DX: M54.31 Sciatica, right side (principal); E11.9 Type 2 diabetes mellitus without complications; I10 Essential (primary) hypertension; J45.909 Unspecified asthma, uncomplicated; F41.9 Anxiety disorder, unspecified; F32.9 Major depressive disorder, single episode, unspecified; K21.9 Gastro-esophageal reflux disease without esophagitis; R51.9 Headache, unspecified; D64.9 Anemia, unspecified; Z87.891 Personal history of nicotine dependence; Z79.899 Other long term (current) drug therapy; Z88.8 Allergy status to other drugs, medicaments and biological substances; Z91.041 Radiographic dye allergy status; Z91.018 Allergy to other foods; Z91.89 Other specified personal risk factors, not elsewhere classified; Z88.6 Allergy status to analgesic agent

== ENCOUNTER → 2021-12-20 | Outpatient (CLI) | payer MEDICARE ==
[~2021-12-20] MED LIST changes: +CYCL-707 PO; +PRED20TA PO
== END ==
LOC: M WUC 11:38
PROVIDERS: ATTEND Internal Medicine
DX: M54.31 Sciatica, right side (principal)

== ENCOUNTER → 2021-12-27 | Outpatient (CLI) | payer MEDICARE ==
[~2021-12-27] MED LIST changes: +POTA8CAP10 PO
== END ==
LOC: M PAIN 11:00
PROVIDERS: ATTEND Nurse Practitioner Family
DX: M54.2 Cervicalgia (principal); M79.7 Fibromyalgia; R51.9 Headache, unspecified; E11.9 Type 2 diabetes mellitus without complications; F32.A Depression, unspecified; L40.50 Arthropathic psoriasis, unspecified; M19.90 Unspecified osteoarthritis, unspecified site; J45.909 Unspecified asthma, uncomplicated; M25.511 Pain in right shoulder; M25.512 Pain in left shoulder; M54.50 Low back pain, unspecified; N89.3 Dysplasia of vagina, unspecified; M21.379 Foot drop, unspecified foot; Z87.891 Personal history of nicotine dependence; Z79.891 Long term (current) use of opiate analgesic; Z79.899 Other long term (current) drug therapy; Z88.6 Allergy status to analgesic agent; Z88.8 Allergy status to other drugs, medicaments and biological substances; Z91.030 Bee allergy status; Z91.048 Other nonmedicinal substance allergy status

== ENCOUNTER → 2022-02-11 | Outpatient (CLI) | payer MEDICARE ==
[2022-02-11 17:22] LABS: HEMOGLOBIN A1c 7.3 % (4.0-6.0)
== END ==
LOC: M WUC 13:02
PROVIDERS: ATTEND Physician Assistant
DX: E11.9 Type 2 diabetes mellitus without complications (principal); E78.5 Hyperlipidemia, unspecified

== ENCOUNTER → 2022-03-11 | Outpatient (CLI) | payer MEDICARE | LOC: M PAIN 10:45 | PROVIDERS: ATTEND Nurse Practitioner Family | DX: M79.10 Myalgia, unspecified site (principal); M54.2 Cervicalgia; G89.29 Other chronic pain; E11.9 Type 2 diabetes mellitus without complications; M79.7 Fibromyalgia; J45.909 Unspecified asthma, uncomplicated; Z86.59 Personal history of other mental and behavioral disorders; Z87.891 Personal history of nicotine dependence; Z88.1 Allergy status to other antibiotic agents; Z88.3 Allergy status to other anti-infective agents; Z88.6 Allergy status to analgesic agent; Z88.8 Allergy status to other drugs, medicaments and biological substances; Z91.018 Allergy to other foods; Z91.030 Bee allergy status; Z91.041 Radiographic dye allergy status; Z91.09 Other allergy status, other than to drugs and biological substances; Z79.84 Long term (current) use of oral hypoglycemic drugs; Z79.899 Other long term (current) drug therapy ==

== ENCOUNTER → 2022-03-18 | Outpatient (CLI) | payer MEDICARE | LOC: M WHC 12:18 | PROVIDERS: ATTEND Specialist | DX: R10.2 Pelvic and perineal pain (principal) ==

== ENCOUNTER → 2022-04-15 | Outpatient (CLI) | payer MEDICARE | LOC: M WHC 09:47 | PROVIDERS: ATTEND Specialist | DX: Z12.31 Encounter for screening mammogram for malignant neoplasm of breast (principal) ==

== ENCOUNTER → 2022-04-15 | Outpatient (REF) | payer MEDICARE | LOC: M PLALAB 09:44 | PROVIDERS: ATTEND Specialist | DX: Z12.4 Encounter for screening for malignant neoplasm of cervix (principal) ==

== ENCOUNTER → 2022-05-01 | Outpatient (CLI) | payer MEDICARE | LOC: M LABSMTC 10:32 | PROVIDERS: ATTEND Anesthesiology | DX: Z01.812 Encounter for preprocedural laboratory examination (principal); Z11.52 Encounter for screening for COVID-19 ==

== ENCOUNTER → 2022-05-05 | Outpatient (CLI) | payer MEDICARE ==
[~2022-05-05] MED LIST changes: +BUPIVACAINE HCL 0.25% 10ML VIAL As Ordered ONE; +BUPIVACAINE HCL 0.25% 30ML VIAL As Ordered ONE; +TRIAMCINOLONE ACETONIDE SUSP 40MG/ML 1ML VIAL As Ordered ONE
== END ==
LOC: M PAIN 08:30
PROVIDERS: ATTEND Anesthesiology
DX: M79.12 Myalgia of auxiliary muscles, head and neck (principal); M79.18 Myalgia, other site; M79.7 Fibromyalgia; R51.9 Headache, unspecified; E11.9 Type 2 diabetes mellitus without complications; F32.A Depression, unspecified; L40.50 Arthropathic psoriasis, unspecified; M19.90 Unspecified osteoarthritis, unspecified site; J45.909 Unspecified asthma, uncomplicated; M54.50 Low back pain, unspecified; Z87.891 Personal history of nicotine dependence; Z79.891 Long term (current) use of opiate analgesic; Z79.84 Long term (current) use of oral hypoglycemic drugs; Z79.899 Other long term (current) drug therapy; Z88.1 Allergy status to other antibiotic agents; Z88.6 Allergy status to analgesic agent; Z88.8 Allergy status to other drugs, medicaments and biological substances; Z91.041 Radiographic dye allergy status; Z91.030 Bee allergy status; Z91.018 Allergy to other foods
CPT/HCPCS: 20553; J3301

== ENCOUNTER → 2022-05-23 | Outpatient (CLI) | payer MEDICARE ==
[~2022-05-23] MED LIST changes: -BUPIVACAINE HCL 0.25% 10ML VIAL As Ordered ONE; -BUPIVACAINE HCL 0.25% 30ML VIAL As Ordered ONE; -TRIAMCINOLONE ACETONIDE SUSP 40MG/ML 1ML VIAL As Ordered ONE
[2022-05-23 12:40] LABS: APPEARANCE, URINE HAZY (CLEAR); BACTERIA, URINE AUTO 1+ (NEGATIVE); BILIRUBIN, URINE AUTO NEGATIVE (NEGATIVE); BLOOD, URINE BLOOD NEGATIVE (NEGATIVE); COLOR, URINE YELLOW (YELLOW); GLUCOSE, URINE (UA) AUTO 3+ mg/dL (NEGATIVE); KETONE, URINE AUTO TRACE mg/dL (NEGATIVE); LEUKOCYTE ESTERASE, URINE AUTO NEGATIVE (NEGATIVE); MUCUS, URINE SMALL (NEGATIVE); NITRITE, URINE AUTO NEGATIVE (NEGATIVE); PROTEIN, URINE AUTO NEGATIVE (NEGATIVE); RBC, URINE AUTO 1 /HPF (0-3); SPECIFIC GRAVITY URINE AUTO 1.027 (1.002-1.035); SQUAMOUS EPITHELIAL CELL UR AU 2 /HPF (0-6); UROBILINOGEN, URINE AUTO 0.2 mg/dL (0.0-2.0); WBC, URINE AUTO 1 /HPF (0-3)
[2022-05-23 12:51] LABS: CHOLESTEROL RISK RATIO 3.25 (<5); HDL CHOLESTEROL 61.2 MG/DL (>40); NON-HDL-C 137.8 MG/DL
[2022-05-23 13:01] LABS: MAU/CREAT RATIO 7.5 MCG/MG (0.0-30.0)
== END ==
LOC: M WUC 08:32
PROVIDERS: ATTEND Physician Assistant
DX: E11.9 Type 2 diabetes mellitus without complications (principal); E78.5 Hyperlipidemia, unspecified

== ENCOUNTER → 2022-06-02 | Outpatient (CLI) | payer MEDICARE | LOC: M PAIN 09:45 | PROVIDERS: ATTEND Nurse Practitioner Family | DX: G89.29 Other chronic pain (principal); M79.10 Myalgia, unspecified site; M79.7 Fibromyalgia; F51.9 Sleep disorder not due to a substance or known physiological condition, unspecified; E11.9 Type 2 diabetes mellitus without complications; F32.A Depression, unspecified; L40.50 Arthropathic psoriasis, unspecified; Z87.891 Personal history of nicotine dependence; Z79.891 Long term (current) use of opiate analgesic; Z79.899 Other long term (current) drug therapy; Z88.6 Allergy status to analgesic agent; Z88.8 Allergy status to other drugs, medicaments and biological substances; Z91.030 Bee allergy status; Z91.018 Allergy to other foods; Z91.048 Other nonmedicinal substance allergy status ==

== ENCOUNTER → 2022-06-27 | Outpatient (CLI) | payer MEDICARE | LOC: M RAD 13:29 | PROVIDERS: ATTEND Nurse Practitioner Adult Health | DX: Z12.2 Encounter for screening for malignant neoplasm of respiratory organs (principal); F17.210 Nicotine dependence, cigarettes, uncomplicated ==

== ENCOUNTER → 2022-07-09 | Outpatient (CLI) | payer MEDICARE | LOC: M WUC 15:20 | PROVIDERS: ATTEND Physician Assistant | DX: I25.10 Atherosclerotic heart disease of native coronary artery without angina pectoris (principal) ==

== ENCOUNTER → 2022-08-07 | Outpatient (CLI) | payer MEDICARE ==
[~2022-08-07] MED LIST changes: +APRE30TA3
== END ==
LOC: M PAIN 10:45
PROVIDERS: ATTEND Nurse Practitioner Family
DX: M79.12 Myalgia of auxiliary muscles, head and neck (principal); M54.2 Cervicalgia; G89.29 Other chronic pain; M79.7 Fibromyalgia; E11.9 Type 2 diabetes mellitus without complications; F32.A Depression, unspecified; L40.50 Arthropathic psoriasis, unspecified; M19.90 Unspecified osteoarthritis, unspecified site; J45.909 Unspecified asthma, uncomplicated; M54.50 Low back pain, unspecified; M25.511 Pain in right shoulder; M25.512 Pain in left shoulder; Z87.891 Personal history of nicotine dependence; Z79.891 Long term (current) use of opiate analgesic; Z79.85 Long-term (current) use of injectable non-insulin antidiabetic drugs; Z79.899 Other long term (current) drug therapy; Z91.041 Radiographic dye allergy status; Z88.1 Allergy status to other antibiotic agents; Z88.6 Allergy status to analgesic agent; Z88.8 Allergy status to other drugs, medicaments and biological substances; Z91.018 Allergy to other foods

== ENCOUNTER → 2022-08-13 | Outpatient (REF) | payer MEDICARE ==
[2022-08-13 17:47] LABS: HEMOGLOBIN A1c 6.4 % (4.0-6.0)
== END ==
LOC: M LAB REF 16:12
PROVIDERS: ATTEND Physician Assistant
DX: E11.9 Type 2 diabetes mellitus without complications (principal)

== ENCOUNTER 2022-09-25 09:41 | Day surgery (SDC) | payer MEDICARE ==
[~2022-09-25] VITALS: Ht 154.9 cm; Wt 74.0 kg
[~2022-09-25 09:41] MED LIST changes: -APRE30TA3; +APRE30TA3 PO; +COSE1INJ SC; +DULO1CAP6 PO; +FLUT1INH2 INH; -K-TA10TA2 PO; -LISI5TAB11; +LISI5TAB11 PO; +NS 1,000 ML IV ONE; +OMEG10002 PO; +POTA-165 PO; +SYNJ1TAB13 PO; +VITA-199 PO
[2022-09-25] MEDS ORDERED: LIDOCAINE 2% 100MG/5ML SDV (FOR ANES.) As Ordered ONE (10:49)
[2022-09-25] MEDS ORDERED: propofoL 500 MG/50 ML VIAL As Ordered ONE (10:49)
[2022-09-25 11:18] VITALS: TEMP 97.7
[2022-09-25 11:32] VITALS: BP 151/69; O2SAT 96
== END 2022-09-25 11:38 | disposition home or self-care (01) ==
LOC: M OPP 09:41
PROVIDERS: ATTEND Surgery
DX: Z12.11 Encounter for screening for malignant neoplasm of colon (principal); Z80.0 Family history of malignant neoplasm of digestive organs; K63.5 Polyp of colon; Z79.02 Long term (current) use of antithrombotics/antiplatelets; Z88.1 Allergy status to other antibiotic agents; Z88.6 Allergy status to analgesic agent; Z88.8 Allergy status to other drugs, medicaments and biological substances; Z91.018 Allergy to other foods; Z91.041 Radiographic dye allergy status; Z91.048 Other nonmedicinal substance allergy status

== ENCOUNTER → 2022-10-09 | Outpatient (CLI) | payer MEDICARE ==
[~2022-10-09] MED LIST changes: -NS 1,000 ML IV ONE; +TRIAMCINOLONE ACETONIDE SUSP 40MG/ML 1ML VIAL As Ordered ONE
== END ==
LOC: M PAIN 15:00
PROVIDERS: ATTEND Anesthesiology
DX: M79.18 Myalgia, other site (principal); G89.29 Other chronic pain; E11.9 Type 2 diabetes mellitus without complications; M79.7 Fibromyalgia; J45.909 Unspecified asthma, uncomplicated; Z86.59 Personal history of other mental and behavioral disorders; Z87.891 Personal history of nicotine dependence; Z88.1 Allergy status to other antibiotic agents; Z88.3 Allergy status to other anti-infective agents; Z88.6 Allergy status to analgesic agent; Z88.8 Allergy status to other drugs, medicaments and biological substances; Z91.018 Allergy to other foods; Z91.030 Bee allergy status; Z91.041 Radiographic dye allergy status; Z91.09 Other allergy status, other than to drugs and biological substances; Z79.84 Long term (current) use of oral hypoglycemic drugs; Z79.899 Other long term (current) drug therapy
CPT/HCPCS: 20552; J0665; J3301

== ENCOUNTER → 2022-12-24 | Outpatient (CLI) | payer MEDICARE ==
[~2022-12-24] MED LIST changes: +EZET10TA58 PO; -OXYB5TAB10 PO; +OXYB5TAB11 PO; -TRIAMCINOLONE ACETONIDE SUSP 40MG/ML 1ML VIAL As Ordered ONE; -ZETI10TA16 PO
== END ==
LOC: M PAIN 11:30
PROVIDERS: ATTEND Anesthesiology
DX: M47.812 Spondylosis without myelopathy or radiculopathy, cervical region (principal); R23.3 Spontaneous ecchymoses; E11.9 Type 2 diabetes mellitus without complications; M79.7 Fibromyalgia; R51.9 Headache, unspecified; F32.A Depression, unspecified; L40.50 Arthropathic psoriasis, unspecified; J45.909 Unspecified asthma, uncomplicated; M54.50 Low back pain, unspecified; Z79.891 Long term (current) use of opiate analgesic; Z79.899 Other long term (current) drug therapy; Z87.891 Personal history of nicotine dependence; Z88.6 Allergy status to analgesic agent; Z88.8 Allergy status to other drugs, medicaments and biological substances; Z91.041 Radiographic dye allergy status; Z91.030 Bee allergy status

== ENCOUNTER → 2023-02-03 | Outpatient (CLI) | payer MEDICARE ==
[~2023-02-03] MED LIST changes: +STEL45IN SC
== END ==
LOC: M PAIN 11:00
PROVIDERS: ATTEND Nurse Practitioner Family
DX: M79.10 Myalgia, unspecified site (principal); Z79.891 Long term (current) use of opiate analgesic; M47.812 Spondylosis without myelopathy or radiculopathy, cervical region; M54.2 Cervicalgia; G89.29 Other chronic pain; E11.9 Type 2 diabetes mellitus without complications; F32.A Depression, unspecified; L40.50 Arthropathic psoriasis, unspecified; R51.9 Headache, unspecified; M19.90 Unspecified osteoarthritis, unspecified site; J45.909 Unspecified asthma, uncomplicated; M54.50 Low back pain, unspecified; Z87.891 Personal history of nicotine dependence; Z79.899 Other long term (current) drug therapy; Z88.6 Allergy status to analgesic agent; Z88.8 Allergy status to other drugs, medicaments and biological substances; Z91.041 Radiographic dye allergy status

== ENCOUNTER → 2023-03-03 | Outpatient (CLI) | payer MEDICARE ==
[2023-03-03 15:52] LABS: COLLAGEN EPINEPHRINE 100 SECONDS (74-162)
[2023-03-03 15:57] LABS: BASO # 0.1 10^3/uL (0.0-0.2); BASO % 0.4 % (0.0-1.0); EOS # 0.2 10^3/uL (0.0-0.5); EOS % 1.8 % (0.0-3.0); HEMATOCRIT 39.1 % (36.0-47.0); HEMOGLOBIN 12.9 g/dl (12.0-15.5); LYMPH % 21.9 % (24.0-44.0); MEAN CORPUSCULAR HEMOGLOBIN 29.4 pg (27.0-33.0); MEAN CORPUSCULAR VOLUME 89.1 fl (80.0-96.0); MONO # 1.1 10^3/uL (0.0-0.8); MONO % 7.9 % (2.0-8.0); NEUTROPHILS # 9.2 10^3/uL (1.5-8.5); NEUTROPHILS % 67.6 % (36.0-66.0); PLATELET COUNT, AUTOMATED 221 10^3/uL (150-450); RED BLOOD COUNT 4.39 10^6/uL (4.00-5.40); WHITE BLOOD COUNT 13.6 10^3/uL (4.0-10.0)
[2023-03-03 16:31] LABS: INR 0.9; PROTHROMBIN TIME 11.9 SECONDS (12.5-14.5)
[2023-03-03 16:32] LABS: PARTIAL THROMBOPLASTIN TIME 30.3 SECONDS (24.8-34.2)
[2023-03-06 07:09] LABS: F8 ACTIVITY FOR F8 PANEL 103 % (56-140); F8 ACTIVITY vWB FOR F8 PANEL 141 % (50-200); F8 ANTIGEN FOR F8 PANEL 163 % (50-200)
== END ==
LOC: M LAB 15:05
PROVIDERS: ATTEND Internal Medicine Hematology
DX: R23.3 Spontaneous ecchymoses (principal)

== ENCOUNTER → 2023-04-07 | Outpatient (CLI) | payer MEDICARE ==
[~2023-04-07] MED LIST changes: -LEFL1TAB4 PO; +LEFL20TA15 PO
== END ==
LOC: M PAIN 10:00
PROVIDERS: ATTEND Nurse Practitioner Family
DX: M79.12 Myalgia of auxiliary muscles, head and neck (principal); Z79.891 Long term (current) use of opiate analgesic; M47.812 Spondylosis without myelopathy or radiculopathy, cervical region; G89.29 Other chronic pain; E11.9 Type 2 diabetes mellitus without complications; F32.A Depression, unspecified; L40.50 Arthropathic psoriasis, unspecified; M54.50 Low back pain, unspecified; J45.909 Unspecified asthma, uncomplicated; Z87.891 Personal history of nicotine dependence; Z79.899 Other long term (current) drug therapy; Z88.6 Allergy status to analgesic agent; Z88.8 Allergy status to other drugs, medicaments and biological substances; Z91.041 Radiographic dye allergy status; Z91.018 Allergy to other foods; Z91.030 Bee allergy status

== ENCOUNTER → 2023-05-07 | Outpatient (CLI) | payer MEDICARE ==
[~2023-05-07] MED LIST changes: -OXYB5TAB11 PO; +OXYB5TAB14 PO
== END ==
LOC: M PAIN 11:00
PROVIDERS: ATTEND Nurse Practitioner Family
DX: M47.812 Spondylosis without myelopathy or radiculopathy, cervical region (principal); M96.1 Postlaminectomy syndrome, not elsewhere classified; G89.29 Other chronic pain; M79.7 Fibromyalgia; R51.9 Headache, unspecified; E11.9 Type 2 diabetes mellitus without complications; F32.A Depression, unspecified; L40.50 Arthropathic psoriasis, unspecified; M54.2 Cervicalgia; M54.50 Low back pain, unspecified; Z79.891 Long term (current) use of opiate analgesic; Z79.899 Other long term (current) drug therapy; Z87.891 Personal history of nicotine dependence; Z88.6 Allergy status to analgesic agent; Z88.8 Allergy status to other drugs, medicaments and biological substances; Z91.018 Allergy to other foods; Z91.030 Bee allergy status; Z91.041 Radiographic dye allergy status; Z91.048 Other nonmedicinal substance allergy status

== ENCOUNTER → 2023-07-17 | Outpatient (CLI) | payer MEDICARE | LOC: M RAD 13:23 | PROVIDERS: ATTEND Nurse Practitioner Adult Health | DX: Z12.2 Encounter for screening for malignant neoplasm of respiratory organs (principal); Z87.891 Personal history of nicotine dependence ==

== ENCOUNTER → 2023-08-13 | Outpatient (CLI) | payer MEDICARE | LOC: M PAIN 17:30 | PROVIDERS: ATTEND Nurse Practitioner Family | DX: M47.812 Spondylosis without myelopathy or radiculopathy, cervical region (principal); G89.29 Other chronic pain; E11.9 Type 2 diabetes mellitus without complications; M79.7 Fibromyalgia; R51.9 Headache, unspecified; F32.A Depression, unspecified; L40.50 Arthropathic psoriasis, unspecified; M19.90 Unspecified osteoarthritis, unspecified site; J45.909 Unspecified asthma, uncomplicated; M54.50 Low back pain, unspecified; Z87.891 Personal history of nicotine dependence; Z79.891 Long term (current) use of opiate analgesic; Z79.899 Other long term (current) drug therapy; Z88.6 Allergy status to analgesic agent; Z88.8 Allergy status to other drugs, medicaments and biological substances; Z91.041 Radiographic dye allergy status; Z91.030 Bee allergy status; Z91.018 Allergy to other foods; Z91.048 Other nonmedicinal substance allergy status ==

== ENCOUNTER → 2023-08-21 | Outpatient (CLI) | payer MEDICARE ==
[2023-08-21 14:15] LABS: HEMATOCRIT 42.1 % (36.0-47.0); HEMOGLOBIN 13.5 g/dl (12.0-15.5); MEAN CORPUSCULAR HEMOGLOBIN 28.4 pg (27.0-33.0); MEAN CORPUSCULAR HGB CONC 32.1 g/dl (32.0-36.5); MEAN CORPUSCULAR VOLUME 88.6 fl (80.0-96.0); PLATELET COUNT, AUTOMATED 233 10^3/uL (150-450); RED BLOOD COUNT 4.75 10^6/uL (4.00-5.40); WHITE BLOOD COUNT 10.6 10^3/uL (4.0-10.0)
[2023-08-21 14:23] LABS: HEMOGLOBIN A1c 6.3 % (4.0-6.0)
[2023-08-21 14:46] LABS: ALBUMIN 3.7 G/DL (3.2-5.2); ALKALINE PHOSPHATASE 128 U/L (46-116); ALT/SGPT 24 U/L (7.0-40); AST/SGOT < 8 U/L (<34); BILIRUBIN,TOTAL 0.4 MG/DL (0.3-1.2); BLOOD UREA NITROGEN 12 MG/DL (9-23); CALCIUM LEVEL 9.4 MG/DL (8.3-10.6); CARBON DIOXIDE LEVEL 28 MMOL/L (20-31); CHLORIDE LEVEL 109 MMOL/L (98-107); CHOLESTEROL LEVEL 153 MG/DL (<200); CHOLESTEROL RISK RATIO 2.89 (<5); CREATININE FOR GFR 0.61 MG/DL (0.55-1.30); GLOMERULAR FILTRATION RATE > 60.0 (>39); GLUCOSE, FASTING 128 MG/DL (74-106); HDL CHOLESTEROL 52.8 MG/DL (>40); LDL CHOLESTEROL 71.4 MG/DL (<100); NON-HDL-C 100.2 MG/DL; POTASSIUM SERUM 4.6 MMOL/L (3.5-5.1); SODIUM LEVEL 144 MMOL/L (136-145); TOTAL PROTEIN 6.5 G/DL (5.7-8.2); TRIGLYCERIDES LEVEL 144 MG/DL (<150)
[2023-08-21 14:50] LABS: THYROID STIMULATING HORMONE 1.014 uIU/ML (0.55-4.78)
== END ==
LOC: M PLALAB 09:19
PROVIDERS: ATTEND Physician Assistant
DX: E78.5 Hyperlipidemia, unspecified (principal); E11.9 Type 2 diabetes mellitus without complications

== ENCOUNTER → 2023-09-15 | Outpatient (CLI) | payer MEDICARE | LOC: M PAIN 10:45 | PROVIDERS: ATTEND Nurse Practitioner Family | DX: M47.812 Spondylosis without myelopathy or radiculopathy, cervical region (principal); Z79.891 Long term (current) use of opiate analgesic; G89.29 Other chronic pain; M79.7 Fibromyalgia; E11.9 Type 2 diabetes mellitus without complications; F32.A Depression, unspecified; L40.50 Arthropathic psoriasis, unspecified; J45.909 Unspecified asthma, uncomplicated; M54.50 Low back pain, unspecified; M54.2 Cervicalgia; Z87.891 Personal history of nicotine dependence; Z79.899 Other long term (current) drug therapy ==

== ENCOUNTER → 2023-11-02 | Outpatient (CLI) | payer MEDICARE ==
[~2023-11-02] MED LIST changes: +EZET10TA21 PO
== END ==
LOC: M PAIN 11:30
PROVIDERS: ATTEND Nurse Practitioner Family
DX: M47.812 Spondylosis without myelopathy or radiculopathy, cervical region (principal); Z79.891 Long term (current) use of opiate analgesic; G89.29 Other chronic pain; M79.7 Fibromyalgia; E11.9 Type 2 diabetes mellitus without complications; F32.A Depression, unspecified; L40.50 Arthropathic psoriasis, unspecified; M19.90 Unspecified osteoarthritis, unspecified site; J45.909 Unspecified asthma, uncomplicated; M54.2 Cervicalgia; M54.50 Low back pain, unspecified; M25.511 Pain in right shoulder; M25.512 Pain in left shoulder; Z87.891 Personal history of nicotine dependence; Z79.899 Other long term (current) drug therapy; Z88.6 Allergy status to analgesic agent; Z88.8 Allergy status to other drugs, medicaments and biological substances; Z91.041 Radiographic dye allergy status; Z91.030 Bee allergy status; Z91.048 Other nonmedicinal substance allergy status; Z91.018 Allergy to other foods

== ENCOUNTER → 2023-11-20 | Outpatient (CLI) | payer MEDICARE ==
[2023-11-24 07:24] LABS: HEMOGLOBIN A1c 6.2 % (4.0-6.0)
== END ==
LOC: M WUC 09:55
PROVIDERS: ATTEND Physician Assistant
DX: E11.9 Type 2 diabetes mellitus without complications (principal); M16.11 Unilateral primary osteoarthritis, right hip; M25.561 Pain in right knee

== ENCOUNTER → 2024-01-12 | Outpatient (CLI) | payer MEDICARE ==
[~2024-01-12] MED LIST changes: +ISOVUE-M 300 61% 15ML VIAL As Ordered ONE; +LIDOCAINE 1% SDV 30ML VIAL As Ordered ONE; +TRIAMCINOLONE ACETONIDE SUSP 40MG/ML 1ML VIAL As Ordered ONE
== END ==
LOC: M PAIN 10:00
PROVIDERS: ATTEND Anesthesiology
DX: M47.812 Spondylosis without myelopathy or radiculopathy, cervical region (principal); G89.29 Other chronic pain; M54.50 Low back pain, unspecified; M54.2 Cervicalgia; M79.7 Fibromyalgia; R51.9 Headache, unspecified; E11.9 Type 2 diabetes mellitus without complications; F32.A Depression, unspecified; L40.50 Arthropathic psoriasis, unspecified; J45.909 Unspecified asthma, uncomplicated; Z87.891 Personal history of nicotine dependence; Z79.1 Long term (current) use of non-steroidal anti-inflammatories (NSAID); Z79.891 Long term (current) use of opiate analgesic; Z79.899 Other long term (current) drug therapy; Z88.6 Allergy status to analgesic agent; Z88.8 Allergy status to other drugs, medicaments and biological substances; Z91.030 Bee allergy status; Z91.041 Radiographic dye allergy status; Z91.048 Other nonmedicinal substance allergy status; Z91.018 Allergy to other foods
CPT/HCPCS: 64490; 64491; J0665; J3301; Q9967

== ENCOUNTER → 2024-01-26 | Outpatient (CLI) | payer MEDICARE ==
[~2024-01-26] MED LIST changes: -ISOVUE-M 300 61% 15ML VIAL As Ordered ONE; -LIDOCAINE 1% SDV 30ML VIAL As Ordered ONE; -TRIAMCINOLONE ACETONIDE SUSP 40MG/ML 1ML VIAL As Ordered ONE
== END ==
LOC: M PAIN 14:15
PROVIDERS: ATTEND Nurse Practitioner Family
DX: M47.812 Spondylosis without myelopathy or radiculopathy, cervical region (principal); Z79.891 Long term (current) use of opiate analgesic; G89.29 Other chronic pain; M54.2 Cervicalgia; M79.7 Fibromyalgia; R51.9 Headache, unspecified; E11.9 Type 2 diabetes mellitus without complications; F32.A Depression, unspecified; L40.50 Arthropathic psoriasis, unspecified; M19.90 Unspecified osteoarthritis, unspecified site; J45.909 Unspecified asthma, uncomplicated; M54.50 Low back pain, unspecified; Z79.1 Long term (current) use of non-steroidal anti-inflammatories (NSAID); Z79.899 Other long term (current) drug therapy; Z87.891 Personal history of nicotine dependence; Z88.6 Allergy status to analgesic agent; Z88.8 Allergy status to other drugs, medicaments and biological substances; Z91.018 Allergy to other foods; Z91.041 Radiographic dye allergy status; Z91.030 Bee allergy status; Z91.048 Other nonmedicinal substance allergy status

== ENCOUNTER → 2024-03-08 | Outpatient (CLI) | payer MEDICARE | LOC: M PAIN 10:15 | PROVIDERS: ATTEND Nurse Practitioner Family | DX: M47.812 Spondylosis without myelopathy or radiculopathy, cervical region (principal); G89.29 Other chronic pain; Z79.51 Long term (current) use of inhaled steroids; Z79.84 Long term (current) use of oral hypoglycemic drugs; Z79.899 Other long term (current) drug therapy; Z80.0 Family history of malignant neoplasm of digestive organs; Z80.8 Family history of malignant neoplasm of other organs or systems; Z87.891 Personal history of nicotine dependence; Z88.1 Allergy status to other antibiotic agents; Z88.3 Allergy status to other anti-infective agents; Z88.6 Allergy status to analgesic agent; Z88.8 Allergy status to other drugs, medicaments and biological substances; Z91.018 Allergy to other foods; Z91.030 Bee allergy status; Z91.041 Radiographic dye allergy status; Z91.048 Other nonmedicinal substance allergy status ==

== ENCOUNTER → 2024-06-03 | Outpatient (CLI) | payer MEDICARE ==
[~2024-06-03] MED LIST changes: +MELO15TA28; +TALT80IN7
== END ==
LOC: M SOG 07:48
PROVIDERS: ATTEND Physician Assistant
DX: M25.551 Pain in right hip (principal); M16.11 Unilateral primary osteoarthritis, right hip